=== PATIENT | female | born 1995 | race African-American/Black ===

== ENCOUNTER 2016-08-22 13:39 | Emergency (ER) | payer OTHER ==
[~2016-08-22] VITALS: Ht 172.7 cm; Wt 62.1 kg
[2016-08-22 13:51] VITALS: TEMP 36.7; Ht 172.7 cm; Wt 62.1 kg
[2016-08-22] MEDS ORDERED: SODIUM CHLORIDE 0.9% 1000ML 1,000 ML IV STA (14:10)
[2016-08-22] MEDS ORDERED: KETOROLAC TROMETHAMINE 30 MG/ML VIAL IV STA (14:10)
[2016-08-22] MEDS ORDERED: ONDANSETRON INJ 2 MG/ML 2 ML VIAL IV STA ×2 (14:10→18:27)
[2016-08-22] MEDS ORDERED: OPTIRAY 320 IV PRN (14:30)
[2016-08-22 14:41] LABS: BASO % 0.6 %; BASO ABS # 0.04 K/uL (0-0.2); HEMATOCRIT 37.2 % (37-47); LYMPH % 15.1 %; LYMPH ABS # 0.95 K/uL (1.2-3.4); MEAN CELL VOLUME 82.1 fL (80-100); MEAN CORPUSCULAR HEMOGLOBIN 26.9 pg (25-34); MEAN CORPUSCULAR HGB CONC 32.8 g/dl (32-36); MEAN PLATELET VOLUME 8.6 fL (7.4-10.4); MONO % 10.4 %; NEUT % 73.9 %; PLATELET COUNT 481 K/uL (130-400); RED BLOOD COUNT 4.53 M/uL (4.2-5.4); WHITE BLOOD COUNT 6.28 K/uL (4.8-10.8)
[2016-08-22 14:57] LABS: BUN/CREATININE RATIO 9.1 (10-20); CALCIUM 9.7 mg/dl (8.5-10.1); CREATININE 0.94 mg/dl (0.60-1.20); POTASSIUM 3.4 mmol/L (3.5-5.1)
[2016-08-22 15:00] LABS: ALB/GLOB RATIO 0.9 (0.9-2)
[2016-08-22 15:17] LABS: ANISOCYTOSIS PRESENT; COMPLETE YES
[2016-08-22 16:02] LABS: PREG INTERNAL NEGATIVE QC NEG CLEAR BACKGROUND; PREG INTERNAL POSITIVE QC POS CONTROL LINE
--- NOTE | 2016-08-22 17:18 | DIAGNOSTIC IMAGING REPORT ---
CT OF THE ABDOMEN AND PELVIS WITH CONTRAST CLINICAL HISTORY: Left upper quadrant pain and vomiting. COMPARISON STUDY: None. TECHNIQUE: Following IV administration of 116 mL of Optiray-320, axial images of the abdomen and pelvis were obtained from the lung bases to the proximal femurs. Images were reviewed in the axial, sagittal, and coronal planes. IV contrast was administered without complication. CT DOSE: 242.58 mGy.cm FINDINGS: Lung bases are clear. The liver, spleen, adrenal glands, kidneys and pancreas are unremarkable. There is excreted contrast within both collecting systems. There is no peripancreatic or pericholecystic infiltration. There is no biliary or pancreatic ductal dilatation. The caliber and wall thickness of small and large bowel are normal. The appendix is normal. The ovaries are not enlarged. There is no abscess or lymphadenopathy within the abdomen or pelvis. Skeletal structures are unremarkable. IMPRESSION: No acute process within the abdomen or pelvis. Electronically signed by: Matt Ireland M.D. 08/22/2016 5:17 PM Dictated Date/Time: 08/22/2016 5:12 PM
[2016-08-22 17:26] LABS: URINE APPEARANCE CLOUDY (CLEAR); URINE EPITHELIAL CELL AUTO >30 /lpf (0-5); URINE NITRITE POS (NEG); URINE PH 7.5 (4.5-7.5); URINE SPECIFIC GRAVITY 1.024 (1.000-1.030); UROBILINOGEN POS (NEG)
[2016-08-22 17:34] LABS: MANUAL MICROSCOPIC REQUIRED? NO; REVIEW REQ? YES; URINE BILIRUBIN 2+ (NEG); URINE COLOR AMBER
[2016-08-22 17:43] LABS: URINE MUCUS PRESENT (NONE PRSENT)
[2016-08-22 17:44] LABS: ZZUR CULT IF INDIC CLEAN CATCH YES
[2016-08-22] MEDS ORDERED: TRAM-453 PO (18:38)
[2016-08-22] MEDS ORDERED: NITR-5 PO (18:38)
[2016-08-22] MEDS ORDERED: ONDA4TAB10 SL (18:38)
[2016-08-22] MEDS ORDERED: PROMETHAZINE HCL INJ 12.5 MG in SODIUM CHLORIDE 0.9% 50ML 50 ML IV STA (18:40)
[2016-08-22] MEDS ORDERED: PROM12.57 PO (18:45)
--- NOTE | 2016-08-22 18:45 | EMERGENCY ROOM VISIT NOTE ---
History First contact with patient: 13:54 Chief Complaint: ABDOMINAL PAIN Stated Complaint: ABD. PAIN, VOMITING, NAUSEA Nursing Triage Summary: Patient c/o nausea, vomitting and abdominal pain for about 1 month. Patient has hx of pancreatitis. States pain 9/10 on arrival to ER. Patient states pain 4/10 at this time History of Present Illness The patient is a 21 year old female who presents to the Emergency Room with complaints of abdominal pain. The patient states that she has had left-sided abdominal pain for the past 2 days. She states she was seen at an emergency department in [place] last month and was told she had pancreatitis. She was prescribed medications but was unable to fill those before coming here. The patient states that she recently moved to the area and does not have a primary care provider or specialist here. She reports that the pain is in the left side of the abdomen and she has associated vomiting. She states that she has constant nausea. She rates her discomfort a 10/10. She states the pain and nausea are exacerbated by eating. She denies any chest pain, shortness of breath, urinary symptoms, changes in bowel movements, vaginal discharge/ bleeding or fevers. She denies any history of abdominal surgery. Review of Systems A complete 10-point Review of Systems was discussed with the patient, with pertinent positives and negatives listed in the History of Present Illness. All remaining Review of Systems questions can be considered negative unless otherwise specified. Social History Smoking Status: Former Smoker Current/Historical Medications Scheduled Nitrofurantoin Monohyd Macrocr (Macrobid), 100 MG PO BID Ondasetron Odt (Zofran Odt), 4 MG SL Q6H Tramadol Hcl (Ultram), 50 MG PO Q4H Scheduled PRN Promethazine (Phenergan ), 1-2 TABS PO Q6H PRN for Nausea or Vomiting Allergies Coded Allergies: No Known Allergies (Unverified , 08/22/16) Physical Exam Vital Signs Date Time Temp Pulse Resp B/P Pulse Ox O2 Delivery O2 Flow Rate FiO2 08/22/16 19:56 93 18 143/87 97 08/22/16 18:21 92 18 128/94 99 Room Air 08/22/16 15:45 96 18 130/92 98 Room Air 08/22/16 13:51 36.7 100 18 140/88 97 Room Air Pain Rating (0-10): 3.0 Physical Exam VITALS: Vitals are noted on the nurse's note and reviewed by myself. Vital signs stable. GENERAL: This is a 21-year-old female, in no acute distress, nondiaphoretic, well-developed well-nourished. SKIN: Capillary reflex less than 2 seconds. HEENT: Normocephalic. PERRLA. EOMI. Nares patent. Mucous membranes moist. Neck is supple without nuchal rigidity. HEART: Regular rate and rhythm without murmurs gallops or rubs. LUNGS: Clear to auscultation bilaterally without wheezes, rales or rhonchi. ABDOMEN: Positive bowel sounds x 4. Soft, nondistended. Mild tenderness to palpation of the left upper quadrant and left mid abdomen. No tenderness of the epigastric region or right upper quadrant. Negative Bender sign. No guarding or rebound tenderness. NEURO: Patient was alert and oriented to person place and time. Medical Decision & Procedures ER Provider Diagnostic Interpretation: CT OF THE ABDOMEN AND PELVIS WITH CONTRAST CLINICAL HISTORY: Left upper quadrant pain and vomiting. COMPARISON STUDY: None. TECHNIQUE: Following IV administration of 116 mL of Optiray-320, axial images of the abdomen and pelvis were obtained from the lung bases to the proximal femurs. Images were reviewed in the axial, sagittal, and coronal planes. IV contrast was administered without complication. CT DOSE: 242.58 mGy.cm FINDINGS: Lung bases are clear. The liver, spleen, adrenal glands, kidneys and pancreas are unremarkable. There is excreted contrast within both collecting systems. There is no peripancreatic or pericholecystic infiltration. There is no biliary or pancreatic ductal dilatation. The caliber and wall thickness of small and large bowel are normal. The appendix is normal. The ovaries are not enlarged. There is no abscess or lymphadenopathy within the abdomen or pelvis. Skeletal structures are unremarkable. IMPRESSION: No acute process within the abdomen or pelvis. Laboratory Results 08/22/16 14:25 Red Blood Count 4.53, Mean Corpuscular Volume 82.1, Mean Corpuscular Hemoglobin 26.9, Mean Corpuscular Hemoglobin Concent 32.8, Mean Platelet Volume 8.6, Neutrophils (%) (Auto) 73.9, Lymphocytes (%) (Auto) 15.1, Monocytes (%) (Auto) 10.4, Eosinophils (%) (Auto) 0.0, Basophils (%) (Auto) 0.6, Neutrophils # (Auto ) 4.64, Lymphocytes # (Auto) 0.95, Monocytes # (Auto) 0.65, Eosinophils # (Auto ) 0.00, Basophils # (Auto) 0.04 08/22/16 14:25 Test 08/22/16 14:25 08/22/16 16:54 White Blood Count 6.28 K/uL (4.8-10.8) Red Blood Count 4.53 M/uL (4.2-5.4) Hemoglobin 12.2 g/dL (12.0-16.0) Hematocrit 37.2 % (37-47) Mean Corpuscular Volume 82.1 fL (80-100) Mean Corpuscular Hemoglobin 26.9 pg (25-34) Mean Corpuscular Hemoglobin Concent 32.8 g/dl (32-36) Platelet Count 481 K/uL (130-400) Mean Platelet Volume 8.6 fL (7.4-10.4) Neutrophils (%) (Auto) 73.9 % Lymphocytes (%) (Auto) 15.1 % Monocytes (%) (Auto) 10.4 % Eosinophils (%) (Auto) 0.0 % Basophils (%) (Auto) 0.6 % Neutrophils # (Auto) 4.64 K/uL (1.4-6.5) Lymphocytes # (Auto) 0.95 K/uL (1.2-3.4) Monocytes # (Auto) 0.65 K/uL (0.11-0.59) Eosinophils # (Auto) 0.00 K/uL (0-0.5) Basophils # (Auto) 0.04 K/uL (0-0.2) RDW Standard Deviation 61.4 fL (36.4-46.3) RDW Coefficient of Variation 20.6 % (11.5-14.5) Immature Granulocyte % (Auto) 0.0 % Immature Granulocyte # (Auto) 0.00 K/uL (0.00-0.02) Anisocytosis PRESENT Macrocytosis PRESENT Anion Gap 12.0 mmol/L (3-11) Est Creatinine Clear Calc Drug Dose 91.3 ml/min Estimated GFR () 99.1 Estimated GFR (Non- 85.5 BUN/Creatinine Ratio 9.1 (10-20) Calcium Level 9.7 mg/dl (8.5-10.1) Total Bilirubin 2.1 mg/dl (0.2-1) Aspartate Amino Transf (AST/SGOT) 192 U/L (15-37) Alanine Aminotransferase (ALT/SGPT) 157 U/L (12-78) Alkaline Phosphatase 447 U/L (45-117) Total Protein 8.2 gm/dl (6.4-8.2) Albumin 3.9 gm/dl (3.4-5.0) Globulin 4.3 gm/dl (2.5-4.0) Albumin/Globulin Ratio 0.9 (0.9-2) Lipase 53 U/L (73-393) Human Chorionic Gonadotropin, Qual NEG (NEG) Urine Color RANDA Urine Appearance CLOUDY (CLEAR) Urine pH 7.5 (4.5-7.5) Urine Specific [place] 1.024 (1.000-1.030) Urine Protein NEG (NEG) Urine Glucose (UA) NEG (NEG) Urine Ketones 3+ (NEG) Urine Occult Blood NEG (NEG) Urine Nitrite POS (NEG) Urine Bilirubin 2+ (NEG) Urine Urobilinogen POS (NEG) Urine Leukocyte Esterase SMALL (NEG) Urine WBC (Auto) 5-10 /hpf (0-5) Urine RBC (Auto) 0-4 /hpf (0-4) Urine Hyaline Casts (Auto) 5-10 /lpf (0-5) Urine Epithelial Cells (Auto) >30 /lpf (0-5) Urine Bacteria (Auto) 1+ (NEG) Urine Mucus PRESENT (NONE PRSENT) Urine Test NEG (NEG) Date/Time Source Procedure Growth Status 08/22/16 16:54 Urine , Clean Catch Urine Culture - Final GREATER THAN THREE TYPES OF ORGANISMS... Complete Medications Administered Medications (Trade) Dose Ordered Sig/Luis Eduardo Route Start Time Stop Time Status Last Admin Dose Admin Sodium Chloride (Nss 1000ml) 1,000 ml @ 999 mls/hr Q1H1M STAT IV 08/22/16 14:10 08/22/16 15:10 DC 08/22/16 14:37 999 MLS/HR Ondansetron HCl (Zofran Inj) 4 mg NOW STAT IV 08/22/16 14:10 08/22/16 14:13 DC 08/22/16 14:37 4 MG Ketorolac Tromethamine 30 mg 30 mg NOW STAT IV 08/22/16 14:10 08/22/16 14:13 DC 08/22/16 14:37 30 MG Promethazine HCl/ Sodium Chloride (Phenergan Inj/ Nss 50ml) 50.5 ml @ 204 mls/hr NOW STAT IV 08/22/16 18:40 08/22/16 18:54 DC 08/22/16 19:06 204 MLS/HR Medical Decision Differential diagnosis includes pancreatitis, gastroenteritis, cholecystitis, colitis, bowel obstruction, appendicitis, ovarian cyst, ovarian torsion, among others. The patient was evaluated as above. Labs were drawn and IV access was obtained. Imaging studies were performed and read by radiology as above. The patient was medicated as above. The patient was reassessed multiple times during their stay in the emergency department and remained in stable condition. The patient is a 21-year-old female who presents today complaining of left- sided abdominal pain. I was able to review records from her visit in a [place] ER. At that time, the patient had a right upper quadrant ultrasound which showed gallbladder sludge, but no evidence of acute cholecystitis or acute pancreatitis. Her LFTs were elevated. Her lipase was 222 at that time. I do not feel that these findings are consistent with acute pancreatitis and I am unsure why that diagnosis was made. Labs revealed no leukocytosis or concerning anemia. Patient's LFTs are elevated and bilirubin is elevated at 2.1. These numbers are similar to when the patient was seen in [place]. Urinalysis was suggestive of infection versus contamination, but given the patient's pain I will cover her with an antibiotic. Urine was negative. Lipase was 53. CT scan of the abdomen and pelvis was performed and showed no acute findings within the abdomen. There is no evidence of acute pancreatitis at this time. Given the patient's elevated LFTs, I do feel that she needs further workup including possibly a HIDA scan to rule out gallbladder disease. In the meantime, she will be placed on Prilosec for possible gastritis/gastric ulcer. She was given prescriptions for pain medication and nausea medication. She was instructed to follow-up with a primary care provider and aircraft log clerk locally. Based on the patient's presentation, lab results, and imaging studies, I feel the patient is stable for outpatient treatment. The patient's case was reviewed with Dr. Stevens, ED attending physician, who agreed with my assessment and treatment plan. Discharge instructions were reviewed with the patient. The patient verbalized understanding of my assessment and treatment plan and was discharged home in good condition. [place] Drug Monitoring Program Search Results: patient reviewed within database, no issues identified Impression Primary Impression: Left sided abdominal pain Departure Information Dispostion Home / Self-Care Condition GOOD Prescriptions Promethazine (Phenergan ) 12.5 Mg Tab 1-2 TABS PO Q6H Y for Nausea or Vomiting, #10 TAB Prov: Alexia Pizarro PA-C 08/22/16 Tramadol Hcl (ULTRAM) 50 Mg Tab 50 MG PO Q4H for Pain for 3 Days, #12 TAB For Initial Treatment Prov: Alexia Pizarro PA-C 08/22/16 Ondasetron Odt (ZOFRAN ODT) 4 Mg Tab 4 MG SL Q6H for Nausea, #20 TAB Prov: Alexia Pizarro PA-C 08/22/16 Nitrofurantoin Monohyd Macrocr (Macrobid) 100 Mg Cap 100 MG PO BID for 5 Days, #10 CAP Prov: Alexia Pizarro PA-C 08/22/16 Referrals No Doctor, Assigned (PCP) Case, Elian Casey D.O. Patient Instructions [facility] Additional Instructions You have been treated in the Emergency Department your Abdominal Pain. Laboratory results and imaging studies have ruled out any emergent causes for your abdominal pain which would warrant admission or surgery. You have been prescribed tramadol to be used for pain control. This is a narcotic medication. You cannot drive or consume alcohol while on this medicine. This medicine should only be used for pain that cannot be controlled with tpli-pcj-cclwoaz pain medicines. You have been prescribed Zofran to be used for any nausea or vomiting. Take as prescribed. Prilosec: Take 20 mg daily before breakfast. This is an cwfs-[id number]-vmqgmuu medication that may help with stomach problems. You were prescribed Macrobid to be taken twice daily for a possible urinary infection. This is an antibiotic. All antibiotics have the potential to cause diarrhea. Stop this medication and contact a medical provider if you were to develop any significant adverse side effects including: wheezing, shortness of breath, passing out, vomiting, or a diffuse rash. Always take antibiotics as directed and COMPLETE the ENTIRE course regardless of the improvement of your symptoms. For pain control, you can use the following eotu-lvm-graocgl medicines (if >12 yo): - Regular strength (200 mg/tab) Advil (ibuprofen) 1-2 tabs every 4-6 hours as needed. Do not exceed a dose of 3200 mg per day. Drink plenty of water and stay well hydrated. Your liver function tests were high today. You need to follow-up with your primary care provider for further testing, possibly including testing of your gallbladder. You should also call a aircraft log clerk for further evaluation of your abdominal pain. Return to the emergency department if your symptoms persist despite treatment plan outlined above or if the following symptoms occur: increased fevers, chills , worsening nausea/vomiting, blood in your stool or urine.
[2016-08-22 19:56] VITALS: BP 143/87; PULSE 93; O2SAT 97
[2017-01-25] MEDS ORDERED: BNT20 PO (13:49)
== END 2016-08-22 19:58 | disposition home or self-care (01) ==
LOC: C.EDB 13:42 → C.EDC 19:58
DX: R10.12 Left upper quadrant pain (principal); R11.2 Nausea with vomiting, unspecified; Z87.891 Personal history of nicotine dependence

== ENCOUNTER 2016-09-08 20:18 | Emergency (ER) | payer OTHER ==
[~2016-09-08] VITALS: Ht 172.7 cm; Wt 64.7 kg
[~2016-09-08 20:18] MED LIST: ONDA4TAB10 SL; PROM12.57 PO
[2016-09-08 20:24] VITALS: Ht 172.7 cm; Wt 64.7 kg
[2016-09-08 20:34] VITALS: O2SAT 100
[2016-09-08 21:13] LABS: BUN/CREATININE RATIO 12.5 (10-20); CREATININE 0.71 mg/dl (0.60-1.20); POTASSIUM 3.4 mmol/L (3.5-5.1)
[2016-09-08 22:14] LABS: CALCIUM 9.4 mg/dl (8.5-10.1)
--- NOTE | 2016-09-09 02:44 | EMERGENCY ROOM VISIT NOTE ---
History Report prepared by Vita: Warner Patterson Under the Supervision of: Dr. Shaq Rodriguez D.O. First contact with patient: 20:43 Chief Complaint: ALCOHOL OVERDOSE Stated Complaint: ETOH Nursing Triage Summary: pt brought to ED by ALS services for alcohol overdose. pt was found asleep/passed out at the [facility] [place]. pt admits to drinking both liquor and beer, states "more than I should have." pt denies drug use. pt reports she is a [employer] student. PBT 0.307. pt alert and oriented x4. breathing WNL, regularly and independently. pt is calm and cooperative History of Present Illness The patient is a 21 year old female who presents to the Emergency Room with complaints of constant alcohol intoxication occurring prior to arrival. The patient states that she was passed out at [facility], and the environmental planner and EMS took her to the ED. The patient states that she had a lot to drink, and her last drink was a couple of hours ago. The patient denies any past medical history other than stomach ulcers. The patient denies any falls or trauma. Pt denies headache , change in vision, fevers, chest pain, shortness of breath, nausea, vomiting, diarrhea, pain with urination, and melena. Patient denies any drug use. Source of History: patient Onset: prior to arrival Position: other (global) Quality: other (alcohol intoxication) Timing: constant Review of Systems See HPI for pertinent positives & negatives. A total of 10 systems reviewed and were otherwise negative. Past Medical & Surgical Medical Problems: (1) Stomach ulcer Family History Hypertension Social History Smoking Status: Light Tobacco Smoker Marital Status: single Occupation Status: employed Current/Historical Medications Unable to Obtain Active Prescriptions or Reported Meds Allergies Coded Allergies: No Known Allergies (Unverified , 08/22/16) Physical Exam Vital Signs Date Time Temp Pulse Resp B/P Pulse Ox O2 Delivery O2 Flow Rate FiO2 09/09/16 03:01 102 18 107/73 99 Room Air 09/09/16 02:09 106 09/09/16 02:01 102 18 106/51 100 Room Air 09/09/16 01:01 97 18 104/47 100 Room Air 09/09/16 00:01 101 18 95 Room Air 09/08/16 23:01 105 18 101/58 94 Room Air 4/22/17 22:08 99 09/08/16 22:05 102 18 120/83 99 Room Air 09/08/16 20:34 100 Room Air 09/08/16 20:24 36.6 108 18 130/76 100 Room Air Physical Exam GENERAL: Sitting up in bed, smell of alcohol on the breath, visibly intoxicated , in no acute distress. HEAD: Normocephalic atraumatic EYE EXAM: normal conjunctiva, PERRL and EOM's grossly intact OROPHARYNX: no exudate, no erythema, lips, buccal mucosa, and tongue normal and mucous membranes are moist NECK: supple, no nuchal rigidity, no adenopathy, non-tender LUNGS: Clear to auscultation. Normal chest wall mechanics HEART: no murmurs, S1 normal and S2 normal ABDOMEN: abdomen soft, non-tender, normo-active bowel sounds, no masses, no rebound or guarding. BACK: Back is symmetrical on inspection and there is no deformity, no midline tenderness, no CVA tenderness. SKIN: no rashes and no bruising UPPER EXTREMITIES: upper extremities are grossly normal. LOWER EXTREMITIES: No pitting edema. NEURO EXAM: Alert to person place and time. Slurring her words. cranial nerves II-XII grossly intact, no gross weakness of arms, no gross weakness of legs. Gross sensation intact. Medical Decision & Procedures Laboratory Results 09/08/16 20:39 Test 09/08/16 20:39 Anion Gap 8.0 mmol/L (3-11) Est Creatinine Clear Calc Drug Dose 124.3 ml/min Estimated GFR () 139.1 Estimated GFR (Non- 120.1 BUN/Creatinine Ratio 12.5 (10-20) Calcium Level 9.4 mg/dl (8.5-10.1) Ethyl Alcohol mg/dL 333.0 mg/dl (0-3) Laboratory results per my review. ED Course ED COURSE: Vital signs were reviewed and showed tachycardia The patients medical record was reviewed The above diagnostic studies were performed and reviewed. ED treatments and interventions as stated above. 2042: The patient was evaluated in room B12. A complete history and physical examination was performed. 2204: I reassessed the patient, and she was doing well, and she states that she has no sober friends for a ride. 4: I reassessed the patient, and she is resting comfortably and awakens to voice. She has no new complaints. 0330: The patient was signed out to Dr. Rothman at the change of shift. The patient remained stable while under my care. Medical Decision Differential diagnosis includes etiologies such as alcohol intoxication, toxicologic, infection, hypoglycemia, electrolyte abnormalities, cardiac sources , intracerebral event, neurologic, as well as others were entertained. Patient is a 21-year-old female who presents the ER following being found sleeping at sheets by police. She's brought in by EMS. She has no complaints. She is able to communicate and discussed the nights signs. She does mid drinking. No other drugs. No significant past medical history. Labs show a mild hypokalemia likely secondary to the alcohol intoxication. Alcohol was 330. She was reevaluated on several occasions and was resting comfortably and had no new complaints. Alcohol will be less than 100 at or after 9AM. If she has a sober ride before then and is able to ambulate it would be reasonable to discharge her. Otherwise she'll be here until 9 AM at which time she has no new complaints she can be discharged. Patient was signed out to Dr. Rothman. Impression Primary Impression: Alcohol abuse Additional Impression: Alcohol use with intoxication Scribe Attestation The scribe's documentation has been prepared under my direction and personally reviewed by me in its entirety. I confirm that the note above accurately reflects all work, treatment, procedures, and medical decision making performed by me. Departure Information Dispostion Still a Patient Prescriptions Unable to Obtain Active Prescriptions or Reported Meds Referrals No Doctor, Assigned (PCP) Patient Instructions [facility] Problem Qualifiers
[2016-09-09 07:20] VITALS: BP 101/53; PULSE 89; TEMP 36.6; O2SAT 97
--- NOTE | 2016-09-09 07:27 | EMERGENCY ROOM VISIT NOTE ---
ED Visit Note First contact with patient: 04:05 This case was signed out to me at change of shift awaiting sobriety. At the time of signout, the patient was sound asleep and hemodynamically stable. I have checked on her again at this time and she remains asleep and is hemodynamically stable. We will wait for her to sober up and then discharge her home. 0720: The patient is feeling much better at this time and will be discharged home with friends.
[2017-01-25] MEDS ORDERED: BNT20 PO (13:49)
== END 2016-09-09 07:20 | disposition home or self-care (01) ==
LOC: EDBD 20:18 → C.EDB 20:19
DX: F10.129 Alcohol abuse with intoxication, unspecified (principal); Z87.19 Personal history of other diseases of the digestive system; Z82.49 Family history of ischemic heart disease and other diseases of the circulatory system; F17.200 Nicotine dependence, unspecified, uncomplicated

== ENCOUNTER 2016-11-28 20:51 | Emergency (ER) | payer OTHER ==
[~2016-11-28] VITALS: Ht 172.7 cm; Wt 61.6 kg
[2016-11-28 20:59] VITALS: TEMP 36.7; Ht 172.7 cm; Wt 61.6 kg
[2016-11-28] MEDS ORDERED: FLUO10CA48 PO (21:19)
[2016-11-28] MEDS ORDERED: HYDR25CA PO (21:22)
[2016-11-28] MEDS ORDERED: FOLI1TAB7 PO (21:23)
[2016-11-28] MEDS ORDERED: MULT-506 PO (21:24)
[2016-11-28] MEDS ORDERED: ONDANSETRON INJ 2 MG/ML 2 ML VIAL IV STA ×2 (21:25→23:08)
[2016-11-28] MEDS ORDERED: RANITIDINE HCL 50 MG/100 ML D5W IV STA (21:39)
[2016-11-28] MEDS ORDERED: SODIUM CHLORIDE 0.9% 1000ML 1,000 ML IV STA ×2 (21:39)
[2016-11-28] MEDS ORDERED: LIDOCAINE HCL 2% VISC SOLN 20 ML UDC PO STA (21:39)
[2016-11-28] MEDS ORDERED: ALUMINUM/MAGNESIUM SUSP 30 ML UDC PO STA (21:39)
[2016-11-28 21:46] LABS: BASO % 0.1 %; BASO ABS # 0.01 K/uL (0-0.2); COMPLETE YES; IG% 0.2 %; LYMPH % 8.6 %; LYMPH ABS # 0.71 K/uL (1.2-3.4); MEAN CELL VOLUME 79.8 fL (80-100); MEAN CORPUSCULAR HEMOGLOBIN 25.9 pg (25-34); MEAN CORPUSCULAR HGB CONC 32.5 g/dl (32-36); MEAN PLATELET VOLUME 10.1 fL (7.4-10.4); MONO % 3.6 %; NEUT % 87.5 %; PLATELET COUNT 295 K/uL (130-400); RED BLOOD COUNT 4.51 M/uL (4.2-5.4); WHITE BLOOD COUNT 8.28 K/uL (4.8-10.8)
[2016-11-28 21:54] LABS: PREG INTERNAL NEGATIVE QC NEG CLEAR BACKGROUND; PREG INTERNAL POSITIVE QC POS CONTROL LINE
[2016-11-28 21:58] LABS: URINE APPEARANCE CLEAR (CLEAR); URINE BILIRUBIN NEG (NEG); URINE COLOR DK YELLOW; URINE EPITHELIAL CELL AUTO >30 /lpf (0-5); URINE NITRITE NEG (NEG); URINE PH 8.5 (4.5-7.5); URINE SPECIFIC GRAVITY 1.028 (1.000-1.030); UROBILINOGEN NEG (NEG); ZZUR CULT IF INDIC CLEAN CATCH NO
[2016-11-28 21:59] LABS: BUN/CREATININE RATIO 12.5 (10-20); CALCIUM 9.7 mg/dl (8.5-10.1); CREATININE 0.8 mg/dl (0.60-1.20); POTASSIUM 3.8 mmol/L (3.5-5.1)
[2016-11-28 22:02] LABS: ALB/GLOB RATIO 0.8 (0.9-2)
[2016-11-28 22:03] LABS: MANUAL MICROSCOPIC REQUIRED? NO; REVIEW REQ? NO
[2016-11-28] MEDS ORDERED: MoRPHine SULFATE 4 MG/ML 1 ML CARP\\VIAL IV STA (22:43)
[2016-11-28 23:20] LABS: PARTIAL THROMBOPLASTIN RATIO 0.9; PROTHROMBIN TIME (PATIENT) 10.7 SECONDS (9.0-12.0)
[2016-11-29] MEDS ORDERED: METOCLOPRAMIDE HCL 10 MG TAB PO SCH
[2016-11-29] MEDS ORDERED: MoRPHine SULFATE 4 MG/ML 1 ML CARP\\VIAL IV STA (00:53)
[2016-11-29] MEDS ORDERED: METOCLOPRAMIDE HCL INJ 5 MG/ML 2 ML VIAL IV STA (00:53)
[2016-11-29] MEDS ORDERED: DiphenhydrAMINE HCL 50 MG/ML VIAL IV STA (00:53)
[2016-11-29] MEDS ORDERED: PANT40TA PO (02:00)
[2016-11-29] MEDS ORDERED: METOCLOPRAMIDE HCL 10 MG TAB PO STA (02:01)
[2016-11-29] MEDS ORDERED: PANTOprazole SOD 40 MG TAB PO STA (02:01)
--- NOTE | 2016-11-29 02:08 | EMERGENCY ROOM VISIT NOTE ---
History First contact with patient: 21:32 Chief Complaint: GI ASSESSMENT Stated Complaint: VOMITING,SEVERE ABD PAIN Nursing Triage Summary: Acute onset of abdominal pain and nausea/vomiting last night, continuing today. History of Present Illness The patient is a 21 year old female who presents to the Emergency Room with complaints of intermittent epigastric discomfort with nausea and vomiting who has had chronically elevated LFTs for quite some time with no further workup for this. Patient states she quit drinking alcohol this past month. No IV drug abuse in the past. Negative hepatitis panel in the past. Pain currently 9 out of 10. Nothing makes it better or worse. No blood or black in the vomit. No black stool. Patient denies chest pain, dyspnea, fever, chills, back pain, urinary symptoms. No endoscopy in the past. No GI evaluation for the elevated LFTs. Review of Systems See HPI for pertinent positives & negatives. A total of 10 systems reviewed and were otherwise negative. Past Medical/Surgical History Medical Problems: (1) Stomach ulcer Family History Hypertension Social History Smoking Status: Never Smoker Alcohol Use: occasionally Drug Use: none Marital Status: single Occupation Status: employed Current/Historical Medications Scheduled Fluoxetine (Prozac), 10 MG PO DAILY Folic Acid (Folvite), 1 MG PO DAILY Multivitamin (Multivitamin), 1 TAB PO DAILY Pantoprazole (Protonix), 40 MG PO DAILY Scheduled PRN Hydroxyzine Pamoate (Vistaril), 1 CAP PO Q6H PRN for Anxiety Allergies Coded Allergies: No Known Allergies (Unverified , 11/28/16) Physical Exam Vital Signs Date Time Temp Pulse Resp B/P (MAP) Pulse Ox O2 Delivery O2 Flow Rate FiO2 11/29/16 02:21 105 108/66 100 11/29/16 01:09 102 16 136/92 100 11/29/16 00:30 90 135/92 98 11/29/16 00:13 101 22 123/83 100 Room Air 11/28/16 22:30 87 20 116/75 100 11/28/16 20:59 36.7 105 18 119/77 99 Room Air Physical Exam VITALS: Vitals are noted on the nurse's note and reviewed by myself. Vital signs stable. GENERAL: Pleasant female, in no acute distress, nondiaphoretic, well-developed well-nourished. SKIN: The skin was without rashes, erythema, edema, or bruising. There is no tenting of the skin. Capillary reflex less than 2 seconds. HEAD: Normocephalic atraumatic. EARS: External auditory canals clear, tympanic membranes pearly gillespie without erythema or effusion bilaterally. EYES: Pupils equal round and reactive to light and accommodation. Conjunctivae without injection, sclerae without icterus. Extraocular movements intact. NOSE: Patent, turbinates without inflammation or discharge. MOUTH: Mucous membranes moist. . Pharynx without erythema or exudate. Uvula midline. Airway patent. Tongue does not deviate. NECK: Supple without nuchal rigidity. No lymphadenopathy. No thyromegaly. Cervical spine is nontender. No JVD. HEART: Regular rate and rhythm without murmurs gallops or rubs. LUNGS: Clear to auscultation bilaterally without wheezes, rales or rhonchi. No dullness to percussion. No retractions or accessory muscle use. ABDOMEN: Positive bowel sounds x 4. Normal tympanic percussion. Soft, tender to palpation epigastric region, no CVA tenderness, without masses or organomegaly. Bender sign negative. No guarding or rebound tenderness. MUSCULOSKELETAL: No muscle atrophy, erythema, or edema noted. NEURO: Patient was alert and oriented to person place and time. Normal sensation to light and sharp touch. No focal neurological deficits. Medical Decision & Procedures Laboratory Results 11/28/16 21:20 Red Blood Count 4.51, Mean Corpuscular Volume 79.8, Mean Corpuscular Hemoglobin 25.9, Mean Corpuscular Hemoglobin Concent 32.5, Mean Platelet Volume 10.1, Neutrophils (%) (Auto) 87.5, Lymphocytes (%) (Auto) 8.6, Monocytes (%) (Auto) 3.6, Eosinophils (%) (Auto) 0.0, Basophils (%) (Auto) 0.1, Neutrophils # (Auto) 7.24, Lymphocytes # (Auto) 0.71, Monocytes # (Auto) 0.30, Eosinophils # (Auto) 0.00, Basophils # (Auto) 0.01 11/28/16 21:20 Test 11/28/16 21:20 11/28/16 21:30 11/28/16 21:40 11/28/16 23:15 White Blood Count 8.28 K/uL (4.8-10.8) Red Blood Count 4.51 M/uL (4.2-5.4) Hemoglobin 11.7 g/dL (12.0-16.0) Hematocrit 36.0 % (37-47) Mean Corpuscular Volume 79.8 fL (80-100) Mean Corpuscular Hemoglobin 25.9 pg (25-34) Mean Corpuscular Hemoglobin Concent 32.5 g/dl (32-36) Platelet Count 295 K/uL (130-400) Mean Platelet Volume 10.1 fL (7.4-10.4) Neutrophils (%) (Auto) 87.5 % Lymphocytes (%) (Auto) 8.6 % Monocytes (%) (Auto) 3.6 % Eosinophils (%) (Auto) 0.0 % Basophils (%) (Auto) 0.1 % Neutrophils # (Auto) 7.24 K/uL (1.4-6.5) Lymphocytes # (Auto) 0.71 K/uL (1.2-3.4) Monocytes # (Auto) 0.30 K/uL (0.11-0.59) Eosinophils # (Auto) 0.00 K/uL (0-0.5) Basophils # (Auto) 0.01 K/uL (0-0.2) RDW Standard Deviation 48.8 fL (36.4-46.3) RDW Coefficient of Variation 16.7 % (11.5-14.5) Immature Granulocyte % (Auto) 0.2 % Immature Granulocyte # (Auto) 0.02 K/uL (0.00-0.02) Prothrombin Time 10.7 SECONDS (9.0-12.0) Prothromb Time International Ratio 1.0 (0.9-1.1) Activated Partial Thromboplast Time 23.9 SECONDS (21.0-31.0) Partial Thromboplastin Ratio 0.9 Anion Gap 11.0 mmol/L (3-11) Est Creatinine Clear Calc Drug Dose 106.4 ml/min Estimated GFR () 120.4 Estimated GFR (Non- 103.9 BUN/Creatinine Ratio 12.5 (10-20) Calcium Level 9.7 mg/dl (8.5-10.1) Total Bilirubin 0.8 mg/dl (0.2-1) Aspartate Amino Transf (AST/SGOT) 193 U/L (15-37) Alanine Aminotransferase (ALT/SGPT) 273 U/L (12-78) Alkaline Phosphatase 526 U/L (45-117) Total Protein 7.8 gm/dl (6.4-8.2) Albumin 3.5 gm/dl (3.4-5.0) Globulin 4.3 gm/dl (2.5-4.0) Albumin/Globulin Ratio 0.8 (0.9-2) Lipase 49 U/L (73-393) Human Chorionic Gonadotropin, Qual NEG (NEG) Urine Color DK YELLOW Urine Appearance CLEAR (CLEAR) Urine pH 8.5 (4.5-7.5) Urine Specific [place] 1.028 (1.000-1.030) Urine Protein TRACE (NEG) Urine Glucose (UA) NEG (NEG) Urine Ketones 2+ (NEG) Urine Occult Blood TRACE (NEG) Urine Nitrite NEG (NEG) Urine Bilirubin NEG (NEG) Urine Urobilinogen NEG (NEG) Urine Leukocyte Esterase TRACE (NEG) Urine WBC (Auto) 1-5 /hpf (0-5) Urine RBC (Auto) 0-4 /hpf (0-4) Urine Hyaline Casts (Auto) 5-10 /lpf (0-5) Urine Epithelial Cells (Auto) >30 /lpf (0-5) Urine Bacteria (Auto) NEG (NEG) Hepatitis B Surface Antigen NEG (NEG) Hepatitis C Antibody NEG (NEG) Medications Administered Medications (Trade) Dose Ordered Sig/Luis Eduardo Route Start Time Stop Time Status Last Admin Dose Admin Ondansetron HCl (Zofran Inj) 4 mg NOW STAT IV 11/28/16 21:25 11/28/16 21:28 DC 11/28/16 21:45 4 MG Lidocaine HCl (Viscous Lidocaine 2% Soln) 10 ml NOW STAT PO 11/28/16 21:39 11/28/16 21:41 DC 11/28/16 22:01 10 ML Al Hydroxide/Mg Hydroxide (Maalox Susp) 30 ml NOW STAT PO 11/28/16 21:39 11/28/16 21:41 DC 11/28/16 22:01 30 ML Ranitidine HCl (zANTac IV) 50 mg NOW STAT IV 11/28/16 21:39 11/28/16 21:41 DC 11/28/16 21:57 50 MG Sodium Chloride 1,000 ml @ 999 mls/hr Q1H1M STAT IV 11/28/16 21:39 11/28/16 22:39 DC 11/28/16 21:46 999 MLS/HR Sodium Chloride 1,000 ml @ 125 mls/hr Q8H STAT IV 11/28/16 21:39 11/29/16 03:07 DC 11/28/16 21:46 125 MLS/HR Morphine Sulfate (MoRPHine SULFATE INJ) 4 mg NOW STAT IV 11/28/16 22:43 11/28/16 22:44 DC 11/28/16 23:15 4 MG Ondansetron HCl (Zofran Inj) 4 mg NOW STAT IV 11/28/16 23:08 11/28/16 23:09 DC 11/28/16 23:12 4 MG Metoclopramide HCl (Reglan Inj) 10 mg NOW STAT IV 11/29/16 00:53 11/29/16 00:54 DC 11/29/16 01:05 10 MG Diphenhydramine HCl (Benadryl Inj) 12.5 mg NOW STAT IV 11/29/16 00:53 11/29/16 00:54 DC 11/29/16 01:03 12.5 MG Morphine Sulfate (MoRPHine SULFATE INJ) 4 mg NOW STAT IV 11/29/16 00:53 11/29/16 00:54 DC 11/29/16 01:07 4 MG Pantoprazole Sodium (Protonix Tab) 40 mg NOW STAT PO 11/29/16 02:01 11/29/16 02:03 DC 11/29/16 02:23 40 MG Metoclopramide HCl (Reglan Tab) 40 mg NOW STAT PO 11/29/16 02:01 11/29/16 02:03 DC 11/29/16 02:24 40 MG Oxycodone HCl (Roxicodone Immediate Rel 5MG Home Pack) 1 homepack UD ONCE PO 11/29/16 02:15 11/29/16 02:16 DC 11/29/16 02:25 1 HOMEPACK ED Course Prior records/ancillary studies reviewed. Triage Nursing notes reviewed. Additional history obtained from family. The patient's history was concerning for abdominal pain. Differential diagnosis: Etiologies such as appendicitis, diverticulitis, PUD, biliary pathology, UTI, pancreatitis, obstruction, mesenteric ischemia, aortic pathology, infections, inflammatory bowel disease, renal colic, as well as others were entertained. Physical examination findings: As above. ER treatment provided: GI cocktail, Zantac, morphine, Zofran, Reglan, Protonix On reassessment the patient felt better. Diagnostics interpreted by me: The labs revealed anemia. Elevated LFTs stable by chart review Imaging studies: Ultrasound negative for cholecystitis per radiology Exam and history seem consistent with nausea and vomiting and epigastric discomfort that most likely is related to reflux with chronically elevated LFTs. Patient felt better after being medicated as above. She was offered admission and declined. She was to follow up outpatient with GI. I felt this was reasonable. Negative hepatitis panel. Normal coags. Case management was asked to make sure patient follows up with GI. She is advised to return to the ER immediately for abdominal pain, fevers, vomiting, black or blood in her stool , worsening signs or symptoms or as needed.By the evaluation outlined above emergent etiologies such as appendicitis, diverticulitis, biliary pathology, UTI, pancreatitis, obstruction, mesenteric ischemia, aortic pathology, infections, inflammatory bowel disease, renal colic, as well as others were deemed relatively unlikely. The nurse accidentally gave the home pack of Reglan all at once to the patient. I did consult the pharmacist, Magaly, and states this is not a lethal dose. The patient only had 40 mg of Reglan. I did inform the family of this and I did apologize. The nurse did an accident report. Patient had no medical complaints and states she felt fine. She is advised not to take anymore Reglan until tomorrow. She is advised to return to the ER immediately for chest pain, difficulty breathing, vomiting, worsening signs or symptoms or as needed. The pt informed about the findings as listed above. All questions were answered and pleased with the treatment. Return instructions were outlined and the patient was discharged in stable condition. Outpatient prescription management: Protonix Referral: The patient was referred back to their primary care physician and gastroenterology for follow-up in 2 to 3 days for a recheck of the current condition. Case reviewed with my attending Medical Decision As above Impression Primary Impression: Epigastric discomfort Additional Impressions: Elevated LFTs Anemia Departure Information Dispostion Home / Self-Care Condition GOOD Prescriptions Pantoprazole (Protonix) 40 Mg Tab 40 MG PO DAILY for 14 Days, #14 TAB Prov: Ann Diana ., KARLA 11/29/16 Referrals Jarett Heck M.D. Forms HOME CARE DOCUMENTATION FORM, IMPORTANT VISIT INFORMATION Patient Instructions GERD, My [facility] Additional Instructions DO NOT drive, drink alcohol, operate machinery, or perform dangerous activities today. You were given medications in the ER that can affect your ability to safely function or operate a vehicle. Reglan(metoclopramide) tablets 10mg: Take one every six hours as needed for nausea. Avoid alcohol, operating machinery or dangerous equipment, working on ladders or roofs, DRIVING, or situations where being under the influence may be dangerous. Rest and drink plenty of fluids as tolerated. Slow sips of water or sports drinks are recommended instead of large amounts all at once. Once your stomach is settled start with a clear liquid diet (jello, soup broth, etc.) and then advance as tolerated. You should avoid full, heavy meals for about 24 hrs from the time your symptoms resolved. Protonix 40 m tablet daily for next 2 weeks. Take this on an empty stomach. Try Maalox or Zantac for breakthrough symptoms for reflux. Avoid large meals. Avoid acidic foods. Continue current medications. Avoid strenuous activities and anything that worsens your pain. Resume normal activities once your symptoms resolve. You are slightly anemic. Have your iron level checked by your family care doctor. Return to the ER immediately for worsening or persistent chest pain, abdominal pain, black or blood in your stools, vomiting, fevers, chest pains, difficulty breathing, worsening of your condition, or as needed. Follow up with your primary physician and gastroenterology in 2-3 days for a recheck of your current condition. Problem Qualifiers
[2016-11-29] MEDS ORDERED: OXYCODONE IR HOME PACK PO ONE (02:15)
[2016-11-29 02:21] VITALS: BP 108/66; PULSE 105; O2SAT 100
--- NOTE | 2016-11-29 06:44 | DIAGNOSTIC IMAGING REPORT ---
Biliary ultrasound CLINICAL HISTORY: epigastric pain, elevated LFTs COMPARISON STUDY: CT scan dated 08/22/2016 FINDINGS: The pancreas appears normal as visualized. The liver appears sonographically normal. There is no ductal dilatation. The common buttock measures 3 mm. The gallbladder appears normal. There is no right-sided hydronephrosis. IMPRESSION: Normal biliary ultrasound. Electronically signed by: Brien Chambers M.D. 11/29/2016 6:43 AM Dictated Date/Time: 11/29/2016 6:42 AM
[2017-01-25] MEDS ORDERED: BNT20 PO (13:49)
== END 2016-11-29 02:49 | disposition home or self-care (01) ==
LOC: C.EDB 20:52 → C.EDC 11-29 02:49
DX: R10.13 Epigastric pain (principal); R94.5 Abnormal results of liver function studies; D64.9 Anemia, unspecified; K25.9 Gastric ulcer, unspecified as acute or chronic, without hemorrhage or perforation; Z82.49 Family history of ischemic heart disease and other diseases of the circulatory system

== ENCOUNTER 2016-12-14 02:55 | Emergency (ER) | payer OTHER ==
[~2016-12-14] VITALS: Ht 172.7 cm; Wt 62.0 kg
[~2016-12-14 02:55] MED LIST changes: +FLUO10CA48 PO; +FOLI1TAB7 PO; +HYDR25CA PO; +MULT-506 PO; -ONDA4TAB10 SL; +PANT40TA PO; -PROM12.57 PO
[2016-12-14 03:03] VITALS: TEMP 36.7; Ht 172.7 cm; Wt 62.0 kg
[2016-12-14] MEDS ORDERED: SODIUM CHLORIDE 0.9% 1000ML 1,000 ML IV STA ×2 (03:10)
[2016-12-14] MEDS ORDERED: LIDOCAINE HCL 2% VISC SOLN 20 ML UDC PO STA (03:10)
[2016-12-14] MEDS ORDERED: ONDANSETRON INJ 2 MG/ML 2 ML VIAL IV STA (03:10)
[2016-12-14] MEDS ORDERED: ALUMINUM/MAGNESIUM SUSP 30 ML UDC PO STA (03:10)
[2016-12-14] MEDS ORDERED: [UNRECOGNIZED DRUG - CODE] PO (03:29)
[2016-12-14] MEDS ORDERED: MULT-506 PO (03:31)
[2016-12-14 03:45] LABS: BASO % 0.2 %; BASO ABS # 0.02 K/uL (0-0.2); COMPLETE YES; EOS % 0.2 %; HEMATOCRIT 33.8 % (37-47); IG% 0.2 %; LYMPH % 23.2 %; LYMPH ABS # 2.08 K/uL (1.2-3.4); MEAN CELL VOLUME 77.3 fL (80-100); MEAN CORPUSCULAR HEMOGLOBIN 25.9 pg (25-34); MEAN CORPUSCULAR HGB CONC 33.4 g/dl (32-36); MEAN PLATELET VOLUME 8.3 fL (7.4-10.4); MONO % 6.9 %; NEUT % 69.3 %; PLATELET COUNT 390 K/uL (130-400); RED BLOOD COUNT 4.37 M/uL (4.2-5.4); WHITE BLOOD COUNT 8.95 K/uL (4.8-10.8)
[2016-12-14 03:54] VITALS: O2SAT 97
[2016-12-14 04:02] LABS: INR 1.1 (0.9-1.1); PROTHROMBIN TIME (PATIENT) 11.5 SECONDS (9.0-12.0)
[2016-12-14 04:05] LABS: CALCIUM 9.5 mg/dl (8.5-10.1); CREATININE 0.72 mg/dl (0.60-1.20); POTASSIUM 3.6 mmol/L (3.5-5.1)
[2016-12-14 04:18] LABS: PREG INTERNAL NEGATIVE QC NEG CLEAR BACKGROUND; PREG INTERNAL POSITIVE QC POS CONTROL LINE
[2016-12-14] MEDS ORDERED: METOCLOPRAMIDE HCL INJ 5 MG/ML 2 ML VIAL IV STA (04:50)
[2016-12-14] MEDS ORDERED: PANTOprazole SOD 40 MG TAB PO STA (04:50)
[2016-12-14] MEDS ORDERED: DiphenhydrAMINE HCL 50 MG/ML VIAL IV STA (04:50)
[2016-12-14] MEDS ORDERED: SUCRALFATE 1 GM/10 ML UDC PO STA (05:37)
--- NOTE | 2016-12-14 06:18 | EMERGENCY ROOM VISIT NOTE ---
History First contact with patient: 03:07 Chief Complaint: NAUSEA Stated Complaint: NAUSEA History of Present Illness The patient is a 21 year old female who presents to the Emergency Room with complaints of nausea and epigastric discomfort for the past day has been binge drinking this week. Patient states she's been on for 1-2 cases of beer a day. No drug use. No history of withdrawal seizures. Patient did not take the Protonix as prescribed from last visit and did not see the GI doctor as recommended from last visit from a few weeks ago. Patient discussed the pain as discomfort, 5 out of 10 to the epigastric region. Nothing makes it better or worse. Patient denies vomiting, diarrhea, black or blood in the stool, chest pain, dyspnea, drug use. She is tolerate by mouth fluids and food. Review of Systems See HPI for pertinent positives & negatives. A total of 10 systems reviewed and were otherwise negative. Past Medical/Surgical History Medical Problems: (1) Stomach ulcer Family History Hypertension Social History Smoking Status: Current Every Day Smoker Alcohol Use: occasionally Drug Use: none Marital Status: single Occupation Status: employed Current/Historical Medications Scheduled Fluoxetine (Prozac), 10 MG PO DAILY Multivitamin (Multivitamin), 1 TAB PO DAILY Scheduled PRN Hydroxyzine Pamoate (Vistaril), 1 CAP PO Q6H PRN for Anxiety Physical Exam Vital Signs Date Time Temp Pulse Resp B/P (MAP) Pulse Ox O2 Delivery O2 Flow Rate FiO2 12/14/16 04:57 98 18 129/83 98 Room Air 12/14/16 03:54 97 Room Air 12/14/16 03:03 36.7 116 18 143/92 100 Room Air Physical Exam VITALS: Vitals are noted on the nurse's note and reviewed by myself. Vital signs stable. GENERAL: Pleasant female with EtOH odor, in no acute distress, nondiaphoretic, well-developed well-nourished. SKIN: The skin was without rashes, erythema, edema, or bruising. There is no tenting of the skin. Capillary reflex less than 2 seconds. HEAD: Normocephalic atraumatic. EARS: External auditory canals clear, tympanic membranes pearly gillespie without erythema or effusion bilaterally. EYES: Pupils equal round and reactive to light and accommodation. Conjunctivae with injection, sclerae without icterus. Extraocular movements intact. NOSE: Patent, turbinates without inflammation or discharge. MOUTH: Mucous membranes moist. Pharynx without erythema or exudate. Uvula midline. Airway patent. Tongue does not deviate. NECK: Supple without nuchal rigidity. No lymphadenopathy. No thyromegaly. Cervical spine is nontender. No JVD. HEART: Regular rate and rhythm without murmurs gallops or rubs. LUNGS: Clear to auscultation bilaterally without wheezes, rales or rhonchi. No dullness to percussion. No retractions or accessory muscle use. ABDOMEN: Positive bowel sounds x 4. Normal tympanic percussion. Soft, minimally tender to palpation epigastric region, no CVA tenderness, without masses or organomegaly. Bender sign negative. No guarding or rebound tenderness. MUSCULOSKELETAL: No muscle atrophy, erythema, or edema noted. NEURO: Patient was alert and oriented to person place and time. Normal sensation to light and sharp touch. No focal neurological deficits. Medical Decision & Procedures Laboratory Results 12/14/16 03:36 Red Blood Count 4.37, Mean Corpuscular Volume 77.3, Mean Corpuscular Hemoglobin 25.9, Mean Corpuscular Hemoglobin Concent 33.4, Mean Platelet Volume 8.3, Neutrophils (%) (Auto) 69.3, Lymphocytes (%) (Auto) 23.2, Monocytes (%) (Auto) 6.9, Eosinophils (%) (Auto) 0.2, Basophils (%) (Auto) 0.2, Neutrophils # (Auto) 6.19, Lymphocytes # (Auto) 2.08, Monocytes # (Auto) 0.62, Eosinophils # (Auto) 0.02, Basophils # (Auto) 0.02 12/14/16 03:36 Test 12/14/16 03:36 12/14/16 04:05 White Blood Count 8.95 K/uL (4.8-10.8) Red Blood Count 4.37 M/uL (4.2-5.4) Hemoglobin 11.3 g/dL (12.0-16.0) Hematocrit 33.8 % (37-47) Mean Corpuscular Volume 77.3 fL (80-100) Mean Corpuscular Hemoglobin 25.9 pg (25-34) Mean Corpuscular Hemoglobin Concent 33.4 g/dl (32-36) Platelet Count 390 K/uL (130-400) Mean Platelet Volume 8.3 fL (7.4-10.4) Neutrophils (%) (Auto) 69.3 % Lymphocytes (%) (Auto) 23.2 % Monocytes (%) (Auto) 6.9 % Eosinophils (%) (Auto) 0.2 % Basophils (%) (Auto) 0.2 % Neutrophils # (Auto) 6.19 K/uL (1.4-6.5) Lymphocytes # (Auto) 2.08 K/uL (1.2-3.4) Monocytes # (Auto) 0.62 K/uL (0.11-0.59) Eosinophils # (Auto) 0.02 K/uL (0-0.5) Basophils # (Auto) 0.02 K/uL (0-0.2) RDW Standard Deviation 47.6 fL (36.4-46.3) RDW Coefficient of Variation 16.8 % (11.5-14.5) Immature Granulocyte % (Auto) 0.2 % Immature Granulocyte # (Auto) 0.02 K/uL (0.00-0.02) Prothrombin Time 11.5 SECONDS (9.0-12.0) Prothromb Time International Ratio 1.1 (0.9-1.1) Activated Partial Thromboplast Time 26.3 SECONDS (21.0-31.0) Partial Thromboplastin Ratio 1.0 Anion Gap 8.0 mmol/L (3-11) Est Creatinine Clear Calc Drug Dose 118.9 ml/min Estimated GFR () 136.8 Estimated GFR (Non- 118.0 BUN/Creatinine Ratio 6.0 (10-20) Calcium Level 9.5 mg/dl (8.5-10.1) Total Bilirubin 1.0 mg/dl (0.2-1) Direct Bilirubin 0.5 mg/dl (0-0.2) Aspartate Amino Transf (AST/SGOT) 73 U/L (15-37) Alanine Aminotransferase (ALT/SGPT) 95 U/L (12-78) Alkaline Phosphatase 711 U/L (45-117) Total Protein 7.6 gm/dl (6.4-8.2) Albumin 3.3 gm/dl (3.4-5.0) Lipase 56 U/L (73-393) Human Chorionic Gonadotropin, Qual NEG (NEG) Ethyl Alcohol mg/dL 16.0 mg/dl (0-3) Medications Administered Medications (Trade) Dose Ordered Sig/Luis Eduardo Route Start Time Stop Time Status Last Admin Dose Admin Lidocaine HCl (Viscous Lidocaine 2% Soln) 10 ml NOW STAT PO 12/14/16 03:10 12/14/16 03:14 DC 12/14/16 03:32 10 ML Al Hydroxide/Mg Hydroxide (Maalox Susp) 30 ml NOW STAT PO 12/14/16 03:10 12/14/16 03:14 DC 12/14/16 03:32 30 ML Sodium Chloride 1,000 ml @ 999 mls/hr Q1H1M STAT IV 12/14/16 03:10 12/14/16 04:10 DC 12/14/16 03:32 999 MLS/HR Sodium Chloride 1,000 ml @ 125 mls/hr Q8H STAT IV 12/14/16 03:10 12/14/16 11:09 12/14/16 03:32 125 MLS/HR Ondansetron HCl (Zofran Inj) 4 mg NOW STAT IV 12/14/16 03:10 12/14/16 03:14 DC 12/14/16 03:32 4 MG Pantoprazole Sodium (Protonix Tab) 40 mg NOW STAT PO 12/14/16 04:50 12/14/16 04:52 DC 12/14/16 05:03 40 MG Metoclopramide HCl (Reglan Inj) 10 mg NOW STAT IV 12/14/16 04:50 12/14/16 04:52 DC 12/14/16 05:02 10 MG Diphenhydramine HCl (Benadryl Inj) 12.5 mg NOW STAT IV 12/14/16 04:50 12/14/16 04:52 DC 12/14/16 05:03 12.5 MG Sucralfate (Carafate Susp) 1 gm NOW STAT PO 12/14/16 05:37 12/14/16 05:38 DC 12/14/16 05:55 1 GM ED Course Prior records/ancillary studies reviewed. Triage Nursing notes reviewed. Additional history obtained from friend The patient's history was concerning for abdominal pain with EtOH abuse. Differential diagnosis: Etiologies such as alcohol abuse, appendicitis, diverticulitis, PUD, biliary pathology, UTI, pancreatitis, obstruction, mesenteric ischemia, aortic pathology , infections, inflammatory bowel disease, renal colic, as well as others were entertained. Physical examination findings: As above. ER treatment provided: GI cocktail, Zofran, Protonix On reassessment the patient felt better. Diagnostics interpreted by me: The labs revealed elevated LFTs, mildly elevated alcohol, mild anemia Imaging studies: Ultrasound was reviewed from the other day and negative for cholecystitis Exam and history seem consistent with acid reflux versus gastritis. Patient's been drinking of heavy alcohol. Patient is strongly encouraged to avoid alcohol and to follow-up GI. She is advised take the PPI as instructed. She was offered detox information and declined. Patient presented with her friend. Her friend started yelling at me stating that I opened up the curtain to watch her change. I informed both of these ladies that I did not do this and the patient actually changed in the bathroom. I told them I did not appreciate them insinuating that I wanted to watch them change. The patient had no concerns or comments over this and The friend was the one that was insinuating all of this. I informed my charge nurse Jack.By the evaluation outlined above emergent etiologies such as appendicitis, diverticulitis, biliary pathology, UTI, pancreatitis, obstruction, mesenteric ischemia, aortic pathology, infections, inflammatory bowel disease, renal colic, as well as others were deemed relatively unlikely. The pt informed about the findings as listed above. All questions were answered and pleased with the treatment. Return instructions were outlined and the patient was discharged in stable condition. Outpatient prescription management: Protonix Referral: The patient was referred back to their primary care physician and GI for follow- up in 2 to 3 days for a recheck of the current condition. Case reviewed with my attending Medical Decision As above Medication Reconcilliation Current Medication List: was personally reviewed by me Blood Pressure Screening Patient's blood pressure: Normal blood pressure Impression Primary Impression: Epigastric discomfort Additional Impressions: Nausea Alcohol abuse Departure Information Dispostion Home / Self-Care Condition GOOD Referrals No Doctor, Assigned (PCP) Patient Instructions My [facility] Additional Instructions Strongly recommend that you quit drinking alcohol. Protonix 40 m tablet daily for next 2 weeks. Take this on an empty stomach. Try Maalox or Zantac for breakthrough symptoms for reflux. Avoid large meals. Avoid acidic foods. Rest and drink plenty of fluids as tolerated. Continue current medications. Avoid strenuous activities and anything that worsens your pain. Resume normal activities once your symptoms resolve. Return to the ER immediately for worsening or persistent chest pain, abdominal pain, black or blood in your stools, vomiting, fevers, chest pains, difficulty breathing, worsening of your condition, or as needed. Follow up with your primary physician and GI in 2-3 days for a recheck of your current condition. Problem Qualifiers
[2016-12-14] MEDS ORDERED: PANT40TA PO (06:19)
[2016-12-14 06:42] VITALS: BP 127/75; PULSE 96; O2SAT 99
[2016-12-14] MEDS ORDERED: ONDANSETRON HOME PACK 4MG OD TAB ONE (07:00)
[2016-12-14] MEDS ORDERED: ONDANSETRON HOME PACK 4MG OD TAB PO ONE (07:00)
[2017-01-25] MEDS ORDERED: BNT20 PO (13:49)
== END 2016-12-14 06:42 | disposition home or self-care (01) ==
LOC: C.EDB 02:57 → C.EDA 06:42
DX: R10.13 Epigastric pain (principal); R11.0 Nausea; F10.10 Alcohol abuse, uncomplicated; F17.200 Nicotine dependence, unspecified, uncomplicated; Z82.49 Family history of ischemic heart disease and other diseases of the circulatory system

== ENCOUNTER 2017-01-09 22:21 | Emergency (ER) | payer OTHER ==
[~2017-01-09] VITALS: Ht 172.7 cm; Wt 57.4 kg
[~2017-01-09 22:21] MED LIST changes: -FOLI1TAB7 PO; -PANT40TA PO
[2017-01-09 22:25] VITALS: TEMP 37.1; Ht 172.7 cm; Wt 57.4 kg
[2017-01-09] MEDS ORDERED: ACET-1256 PO (22:48)
[2017-01-09] MEDS ORDERED: RANI150T3 PO (22:48)
[2017-01-09] MEDS ORDERED: DEXT1TAB15 PO (22:48)
[2017-01-09] MEDS ORDERED: SODIUM CHLORIDE 0.9% 1000ML 1,000 ML IV STA (23:08)
[2017-01-09] MEDS ORDERED: ONDANSETRON INJ 2 MG/ML 2 ML VIAL IV STA (23:08)
--- NOTE | 2017-01-09 23:21 | EMERGENCY ROOM VISIT NOTE ---
History Report prepared by Vita: Bowen Carrasco Under the Supervision of: Dr. Petros Colvin M.D. First contact with patient: 22:56 Chief Complaint: ABDOMINAL PAIN Stated Complaint: ABD PAIN Nursing Triage Summary: Abdominal pain this morning upon waking, nausea and lightheaded, vomiting. Mainly LUQ, non-radiating, "twisting" feeling. History of Present Illness The patient is a 21 year old black female with a past medical history of pancreatitis who presents to the ED with a cc of worsening sharp upper abdominal pain beginning today. Positive nausea and vomiting. Negative fevers, chills, back pain, melena, hematochezia, diarrhea, urinary symptoms. Over this year, the patient began experiencing a stomach ulcer. She states that this is because she drank too much alcohol. She states that she can only eat applesauce and jello without feeling stomach pains. Her pain is exacerbated by eating, drinking alcohol, or drinking anything acidic. She denies any recent antibiotics, travel, or sick contacts. She has not drank alcohol recently. Her last menstrual period was 1.5 months ago, which she states can happen when she doesn't eat normally. Source of History: patient Onset: today Position: abdomen (upper) Symptom Intensity: moderate Quality: sharp Timing: worsening Modifying Factors (Worsening): eating, drinking (alcohol) Associated Symptoms: + nausea, + vomiting, No fevers, No back pain, No melena, No hematochezia, No diarrhea, No urinary symptoms Review of Systems See HPI for pertinent positives and negatives. A total of ten systems were reviewed and were otherwise negative. Past Medical & Surgical Medical Problems: (1) Stomach ulcer Family History Hypertension Social History Smoking Status: Current Some Day Smoker Smokeless Tobacco Use: No Alcohol Use: occasionally Drug Use: none Marital Status: single Occupation Status: employed Current/Historical Medications Scheduled Acetaminophen (Tylenol), 1-2 TAB PO Q8 Cephalexin Monohydrate (Keflex), 500 MG PO BID Dextroamphetamine Sulfate (Dextroamphetamine Sulfate), 2 TAB PO DAILY Fluoxetine (Prozac), 10 MG PO DAILY Pantoprazole (Protonix), 40 MG PO DAILY Ranitidine Hcl (Zantac), 150 MG PO DAILY Scheduled PRN Hydroxyzine Pamoate (Vistaril), 1 CAP PO Q6H PRN for Anxiety Promethazine (Phenergan Suppository), 25 MG MI Q6H PRN for Nausea Promethazine Hcl (Phenergan), 25 MG PO Q6H PRN for Nausea Allergies Coded Allergies: No Known Allergies (Unverified , 01/09/17) Physical Exam Vital Signs Date Time Temp Pulse Resp B/P (MAP) Pulse Ox O2 Delivery O2 Flow Rate FiO2 01/10/17 01:29 94 16 132/90 99 01/10/17 00:49 96 16 130/93 100 Room Air 01/09/17 23:34 97 16 132/77 99 Room Air 01/09/17 22:25 37.1 99 18 120/82 98 Room Air Physical Exam GENERAL: Awake, alert, well-appearing, NAD HENT: Normocephalic, atraumatic. EYES: Normal conjunctiva. Sclera non-icteric. NECK: Supple. No nuchal rigidity. FROM. RESPIRATORY: CTAB, no rhonchi, wheezing, crackles CARDIAC: Tachycardic rate with a normal rhythm, no MRG ABDOMEN: Soft, epigastric LUQ and RUQ tenderness, no lower abdominal tenderness to palpation, ND, BS, negative Bender's sign. MSK: No chest wall TTP, no LE edema NEURO: GCS 15, CN 2-12 intact, moves all 4s on command SKIN: No rash or jaundice noted. Medical Decision & Procedures Laboratory Results 01/09/17 22:30 Red Blood Count 5.09, Mean Corpuscular Volume 78.4, Mean Corpuscular Hemoglobin 24.8, Mean Corpuscular Hemoglobin Concent 31.6, Mean Platelet Volume 9.3, Neutrophils (%) (Auto) 73.7, Lymphocytes (%) (Auto) 16.6, Monocytes (%) (Auto) 9.0, Eosinophils (%) (Auto) 0.1, Basophils (%) (Auto) 0.4, Neutrophils # (Auto) 6.15, Lymphocytes # (Auto) 1.39, Monocytes # (Auto) 0.75, Eosinophils # (Auto) 0.01, Basophils # (Auto) 0.03 01/09/17 22:30 Test 01/09/17 22:30 01/09/17 23:30 White Blood Count 8.35 K/uL (4.8-10.8) Red Blood Count 5.09 M/uL (4.2-5.4) Hemoglobin 12.6 g/dL (12.0-16.0) Hematocrit 39.9 % (37-47) Mean Corpuscular Volume 78.4 fL (80-100) Mean Corpuscular Hemoglobin 24.8 pg (25-34) Mean Corpuscular Hemoglobin Concent 31.6 g/dl (32-36) Platelet Count 404 K/uL (130-400) Mean Platelet Volume 9.3 fL (7.4-10.4) Neutrophils (%) (Auto) 73.7 % Lymphocytes (%) (Auto) 16.6 % Monocytes (%) (Auto) 9.0 % Eosinophils (%) (Auto) 0.1 % Basophils (%) (Auto) 0.4 % Neutrophils # (Auto) 6.15 K/uL (1.4-6.5) Lymphocytes # (Auto) 1.39 K/uL (1.2-3.4) Monocytes # (Auto) 0.75 K/uL (0.11-0.59) Eosinophils # (Auto) 0.01 K/uL (0-0.5) Basophils # (Auto) 0.03 K/uL (0-0.2) RDW Standard Deviation 48.2 fL (36.4-46.3) RDW Coefficient of Variation 17.0 % (11.5-14.5) Immature Granulocyte % (Auto) 0.2 % Immature Granulocyte # (Auto) 0.02 K/uL (0.00-0.02) Anion Gap 7.0 mmol/L (3-11) Est Creatinine Clear Calc Drug Dose 116.6 ml/min Estimated GFR () 142.9 Estimated GFR (Non- 123.3 BUN/Creatinine Ratio 10.4 (10-20) Calcium Level 9.6 mg/dl (8.5-10.1) Total Bilirubin 1.3 mg/dl (0.2-1) Direct Bilirubin 0.7 mg/dl (0-0.2) Aspartate Amino Transf (AST/SGOT) 73 U/L (15-37) Alanine Aminotransferase (ALT/SGPT) 76 U/L (12-78) Alkaline Phosphatase 455 U/L (45-117) Total Protein 7.7 gm/dl (6.4-8.2) Albumin 3.5 gm/dl (3.4-5.0) Lipase 48 U/L (73-393) Urine Color DK YELLOW Urine Appearance CLEAR (CLEAR) Urine pH 6.5 (4.5-7.5) Urine Specific [place] 1.033 (1.000-1.030) Urine Protein 1+ (NEG) Urine Glucose (UA) NEG (NEG) Urine Ketones 1+ (NEG) Urine Occult Blood NEG (NEG) Urine Nitrite POS (NEG) Urine Bilirubin 1+ (NEG) Urine Urobilinogen NEG (NEG) Urine Leukocyte Esterase TRACE (NEG) Urine WBC (Auto) 5-10 /hpf (0-5) Urine RBC (Auto) 0-4 /hpf (0-4) Urine Hyaline Casts (Auto) 5-10 /lpf (0-5) Urine Epithelial Cells (Auto) >30 /lpf (0-5) Urine Bacteria (Auto) NEG (NEG) Urine Test NEG (NEG) Laboratory results reviewed by me Medications Administered Medications (Trade) Dose Ordered Sig/Luis Eduardo Route Start Time Stop Time Status Last Admin Dose Admin Ondansetron HCl (Zofran Inj) 4 mg NOW STAT IV 01/09/17 23:08 01/09/17 23:10 DC 01/09/17 23:33 4 MG Sodium Chloride 1,000 ml @ 999 mls/hr Q1H1M STAT IV 01/09/17 23:08 01/10/17 00:08 DC 01/09/17 23:32 999 MLS/HR Promethazine HCl (Phenergan Inj) 25 mg NOW STAT IM 01/10/17 00:04 01/10/17 00:08 DC 01/10/17 00:29 25 MG Morphine Sulfate (MoRPHine SULFATE INJ) 6 mg NOW STAT IV 01/10/17 00:04 01/10/17 00:08 DC 01/10/17 00:27 6 MG Al Hydroxide/Mg Hydroxide (Maalox Susp) 30 ml STK-MED ONCE .ROUTE 01/10/17 00:23 01/10/17 00:24 DC 01/10/17 00:28 30 ML Lidocaine HCl (Viscous Lidocaine 2% Soln) 20 ml STK-MED ONCE .ROUTE 01/10/17 00:23 01/10/17 00:24 DC 01/10/17 00:28 20 ML Ceftriaxone Sodium (Rocephin Inj) 1 gm NOW STAT IV 01/10/17 00:33 01/10/17 00:35 DC 01/10/17 00:47 1 GM Promethazine HCl (Phenergan 25MG Home Pack) 1 [facility] UD ONCE PO 01/10/17 01:30 01/10/17 01:31 DC 01/10/17 01:31 [facility]: The patient was evaluated in room B2. A complete history and physical exam was performed. 0011: Bedside US results: Gallbladder wall normal, no pericholecystic fluid, CBD normal caliber, IVC looked flat. 0058: The patient was successful with her PO challenge. 0117: I reevaluated the patient. She will follow up with GI in the near future. Discussed results and discharge instructions: She verbalized understanding and agreement. The patient is ready for discharge. Medical Decision The patient is a 21 year old black female with a past medical history of pancreatitis who presents to the ED with a cc of worsening sharp upper abdominal pain beginning today. Positive nausea and vomiting. Negative fevers, chills, back pain, melena, hematochezia, diarrhea, urinary symptoms. Triage Nursing notes reviewed. The patient's presentation and history were concerning for appendicitis, diverticulitis, PUD, biliary pathology, UTI, pancreatitis, obstruction, mesenteric ischemia, aortic pathology, infections, inflammatory bowel disease, renal colic, as well as others were entertained. Patient recently seen with elevated LFTs and alk phos. H/o of pancreatitis in past. History most consistent w/ PUD/gastritis. BSUS completed w/ normal CBD, GBW, and no pericholecystic fluid. Patient did have mildly elevated alk phos but decreased from prior. Bili slightly greater than normal. May have some cholestasis. Pain improved. IVF improved tachycardia and tolerated PO. Even though upper ab symptoms, UA +LE, nitrite so will trx for UTI. Given Rx's. Counseled on return precautions, foods to avoid, and need to f/u w/ GI. Given PPI. D/c'ed to home. Medication Reconcilliation Current Medication List: was personally reviewed by me Blood Pressure Screening Patient's blood pressure: Normal blood pressure Blood pressure disposition: Did not require urgent referral Impression Primary Impression: PUD (peptic ulcer disease) Additional Impression: Gastritis Scribe Attestation The scribe's documentation has been prepared under my direction and personally reviewed by me in its entirety. I confirm that the note above accurately reflects all work, treatment, procedures, and medical decision making performed by me. Departure Information Dispostion Home / Self-Care Prescriptions Cephalexin Monohydrate (Keflex) 500 Mg Cap 500 MG PO BID for 7 Days, #14 CAP Prov: Petros Colvin M.D. 01/10/17 Pantoprazole (Protonix) 40 Mg Tab 40 MG PO DAILY for Documentation for 30 Days, #30 TAB Prov: Petros Colvin M.D. 01/10/17 Promethazine (Phenergan Suppository) 25 Mg Supp 25 MG MI Q6H Y for Nausea, #10 SUPP Prov: Petros Colvin M.D. 01/10/17 Promethazine Hcl (Phenergan) 25 Mg Tab 25 MG PO Q6H Y for Nausea, #15 TAB Prov: Petros Colvin M.D. 01/10/17 [facility] (PCP) Bertrand Costello M.D. Forms HOME CARE DOCUMENTATION FORM, IMPORTANT VISIT INFORMATION Patient Instructions ED Gastritis, ED Nausea Vomiting, ED PUD Vs Gastritis, My [facility] Additional Instructions Please return to the emergency department if you have worsening or recurrent symptoms not amenable to at-home treatment. Please call for a follow-up appointment with her primary care physician. Please take your medications as prescribed. If you have other concerns and/or complaints please feel free to also call your primary care physician's office or return the ED for further evaluation, management, and treatment. Problem Qualifiers Additional Impression: Gastritis Gastritis type: unspecified gastritis Chronicity: chronic Gastritis bleeding: presence of bleeding unspecified Qualified Codes: K29.50 - Unspecified chronic gastritis without bleeding
[2017-01-09 23:27] LABS: BASO % 0.4 %; BASO ABS # 0.03 K/uL (0-0.2); COMPLETE YES; EOS % 0.1 %; HEMATOCRIT 39.9 % (37-47); IG% 0.2 %; LYMPH % 16.6 %; LYMPH ABS # 1.39 K/uL (1.2-3.4); MEAN CELL VOLUME 78.4 fL (80-100); MEAN CORPUSCULAR HEMOGLOBIN 24.8 pg (25-34); MEAN CORPUSCULAR HGB CONC 31.6 g/dl (32-36); MEAN PLATELET VOLUME 9.3 fL (7.4-10.4); NEUT % 73.7 %; PLATELET COUNT 404 K/uL (130-400); RED BLOOD COUNT 5.09 M/uL (4.2-5.4); WHITE BLOOD COUNT 8.35 K/uL (4.8-10.8)
[2017-01-09 23:39] LABS: BUN/CREATININE RATIO 10.4 (10-20); CALCIUM 9.6 mg/dl (8.5-10.1); CREATININE 0.68 mg/dl (0.60-1.20); POTASSIUM 3.6 mmol/L (3.5-5.1)
[2017-01-09 23:45] LABS: URINE APPEARANCE CLEAR (CLEAR); URINE COLOR DK YELLOW; URINE EPITHELIAL CELL AUTO >30 /lpf (0-5); URINE NITRITE POS (NEG); URINE PH 6.5 (4.5-7.5); URINE SPECIFIC GRAVITY 1.033 (1.000-1.030); UROBILINOGEN NEG (NEG); ZZUR CULT IF INDIC CLEAN CATCH NO
[2017-01-09 23:47] LABS: URINE BILIRUBIN 1+ (NEG)
[2017-01-09 23:48] LABS: MANUAL MICROSCOPIC REQUIRED? NO; REVIEW REQ? NO
[2017-01-10] MEDS ORDERED: PROMETHAZINE HCL INJ 25 MG/ML 1 ML VIAL IM STA (00:04)
[2017-01-10] MEDS ORDERED: MoRPHine SULFATE 10 MG/ML CARP/VIAL IV STA (00:04)
[2017-01-10] MEDS ORDERED: GI COCKTAIL PO STA (00:04)
[2017-01-10] MEDS ORDERED: ALUMINUM/MAGNESIUM SUSP 30 ML UDC ONE (00:23)
[2017-01-10] MEDS ORDERED: LIDOCAINE HCL 2% VISC SOLN 20 ML UDC ONE (00:23)
[2017-01-10] MEDS ORDERED: CEFTRIAXONE SOD INJ 1 GM ADDVIAL IV STA (00:33)
[2017-01-10] MEDS ORDERED: PANT40TA PO (01:21)
[2017-01-10] MEDS ORDERED: PROM25TA9 PO (01:21)
[2017-01-10] MEDS ORDERED: PROM1SUP19 PR (01:21)
[2017-01-10 01:29] VITALS: BP 132/90; PULSE 94; O2SAT 99
[2017-01-10] MEDS ORDERED: PHENERGAN 25MG HOMEPACK PO ONE (01:30)
[2017-01-10] MEDS ORDERED: CEPH500C PO (01:35)
--- NOTE | 2017-01-11 11:19 | Pharmacy Progress Note ---
ED Pharmacist Progress Note Date of Service: Jan 11, 2017. Received call from friend of patient requesting that prescriptions from 8 PM be transferred to [facility] on [address] (previously electronically submitted to [facility]). Counseled that [facility] can do so by calling [facility]. Counseled for friend to call [facility] on [address] and provide name of each of the medications they wish to transfer.
[2017-01-25] MEDS ORDERED: BNT20 PO (13:49)
== END 2017-01-10 01:36 | disposition home or self-care (01) ==
LOC: EDBD 22:21 → C.EDB 22:24
DX: K27.3 Acute peptic ulcer, site unspecified, without hemorrhage or perforation (principal); K29.70 Gastritis, unspecified, without bleeding; F17.200 Nicotine dependence, unspecified, uncomplicated; Z87.19 Personal history of other diseases of the digestive system; Z79.899 Other long term (current) drug therapy; Z82.49 Family history of ischemic heart disease and other diseases of the circulatory system

== ENCOUNTER 2017-01-22 05:37 | Observation (INO) | payer OTHER ==
[~2017-01-22] VITALS: Ht 172.7 cm; Wt 53.6 kg
[~2017-01-22 05:37] MED LIST changes: +ACET-1256 PO; +DEXT1TAB15 PO; -MULT-506 PO; +PANT40TA PO; +PROM1SUP19 PR; +PROM25TA9 PO; +RANI150T3 PO
[2017-01-22 05:46] VITALS: Ht 172.7 cm; Wt 53.6 kg
[2017-01-22] MEDS ORDERED: METOCLOPRAMIDE HCL INJ 5 MG/ML 2 ML VIAL IV STA (05:58)
[2017-01-22] MEDS ORDERED: SODIUM CHLORIDE 0.9% 1000ML 1,000 ML IV STA ×2 (05:58)
[2017-01-22] MEDS ORDERED: RANITIDINE HCL 50 MG/100 ML D5W IV STA (05:58)
[2017-01-22] MEDS ORDERED: DiphenhydrAMINE HCL 50 MG/ML VIAL IV STA (05:58)
[2017-01-22 06:21] LABS: BASO % 0.3 %; BASO ABS # 0.02 K/uL (0-0.2); COMPLETE YES; HEMATOCRIT 40.3 % (37-47); IG% 0.3 %; LYMPH % 15.1 %; MEAN CELL VOLUME 79.2 fL (80-100); MEAN CORPUSCULAR HEMOGLOBIN 26.3 pg (25-34); MEAN CORPUSCULAR HGB CONC 33.3 g/dl (32-36); MEAN PLATELET VOLUME 9.3 fL (7.4-10.4); MONO % 6.7 %; NEUT % 77.6 %; PLATELET COUNT 356 K/uL (130-400); RED BLOOD COUNT 5.09 M/uL (4.2-5.4); WHITE BLOOD COUNT 7.94 K/uL (4.8-10.8)
[2017-01-22] MEDS ORDERED: MoRPHine SULFATE 4 MG/ML 1 ML CARP\\VIAL IV STA (06:38)
[2017-01-22 06:41] LABS: BUN/CREATININE RATIO 15.9 (10-20); CALCIUM 9.8 mg/dl (8.5-10.1); CREATININE 0.82 mg/dl (0.60-1.20); POTASSIUM 3.6 mmol/L (3.5-5.1)
[2017-01-22] MEDS ORDERED: ONDANSETRON HOME PACK 4MG OD TAB PO ONE (06:45)
[2017-01-22 06:54] LABS: PREG INTERNAL NEGATIVE QC NEG CLEAR BACKGROUND; PREG INTERNAL POSITIVE QC POS CONTROL LINE
[2017-01-22 07:40] LABS: INR 1.1 (0.9-1.1); PARTIAL THROMBOPLASTIN RATIO 1.1; PROTHROMBIN TIME (PATIENT) 12.1 SECONDS (9.0-12.0)
[2017-01-22 07:52] LABS: BENZODIAZEPINE, URINE NEG (NEG); COCAINE,URINE NEG (NEG); PHENCYCLIDINE, URINE NEG (NEG)
[2017-01-22] MEDS ORDERED: ONDANSETRON INJ 2 MG/ML 2 ML VIAL IV STA (08:51)
[2017-01-22] MEDS ORDERED: OPTIRAY 320 IV PRN (10:15)
--- NOTE | 2017-01-22 10:47 | DIAGNOSTIC IMAGING REPORT ---
CT SCAN OF THE ABDOMEN AND PELVIS WITH IV CONTRAST CLINICAL HISTORY: Epigastric abdominal pain. Elevated hepatic transaminases. Nausea and vomiting. COMPARISON STUDY: Abdominal CT dated 08/22/2016. TECHNIQUE: Following the IV administration of 92 cc of Optiray 320, CT scan of the abdomen and pelvis is performed from the lung bases to the proximal femora. Images are reviewed in the axial, sagittal, and coronal planes. IV contrast was administered without complication. Automated dose control exposure was utilized. A dose lowering technique was utilized adhering to the principles of ALARA. CT DOSE: 253.17 mGy.cm FINDINGS: Lung bases: The heart is normal in size and without pericardial effusion. The lung bases are clear. Liver: The contrast-enhanced liver is normal in size, contour, and attenuation. There is no intrahepatic biliary ductal dilatation. The hepatic veins and portal veins are patent. Gallbladder: Unremarkable. Spleen: Normal in size and attenuation. Pancreas: Unremarkable. Adrenal glands: Unremarkable. Kidneys: The contrast enhanced kidneys are normal in size and without hydronephrosis. The kidneys enhance symmetrically. Abdominal vasculature: The abdominal aorta is normal in course and caliber. Bowel: The small bowel and colon are normal in course and caliber. The appendix is well-visualized and normal. Peritoneum: There is no intraperitoneal free air or abdominal ascites. There is a small fat-containing umbilical hernia. A naval piercing is noted. Lymphadenopathy: None. Pelvic viscera: The bladder, uterus, and adnexa are normal as visualized. There are bilateral ovarian follicles. Skeletal structures: No lytic or blastic lesions are seen. IMPRESSION: There are no acute infectious or inflammatory findings in the abdomen or pelvis. Electronically signed by: James Lowery M.D. 01/22/2017 10:46 AM Dictated Date/Time: 01/22/2017 10:36 AM
[2017-01-22] MEDS ORDERED: AMPH20TA2 PO (11:17)
[2017-01-22] MEDS ORDERED: SUCR1TAB29 PO (11:17)
[2017-01-22] MEDS ORDERED: ONDA4TAB65 PO (11:17)
[2017-01-22] MEDS ORDERED: HYDR-3126 PO (11:17)
[2017-01-22] MEDS ORDERED: IV FLUIDS COMPLETED PRN (11:30)
--- NOTE | 2017-01-22 11:58 | History and Physical ---
History & Physical Date & Time of Service: Jan 22, 2017 ~ 10:45 Chief Complaint: Abdominal Pain Primary Care Physician: Winston Rod M.D. (MEDICAL) History of Present Illness 21 year old female who presents to the ER with abdominal pain, nausea, and vomiting. Patient reports chronic epigastric abdominal pain for the past 6 months however symptoms acutely worsened 5 days ago. She has been diagnosed with alcoholic hepatitis and does admit that typically her symptoms would flare up after drinking. She was seen by GI as an outpatient and is scheduled for an EGG/EUS next week. Patient reports she has not drank any alcohol for the past 3 weeks. She reports that five days ago she drank a lot of coffee and "junk food" . Since then, she reports sever stabbing epigastric pain with radiation to the left. She also has had several episodes of vomiting and is unable to keep anything down. She used Zofran and Phenergan without relief. She also smoked marijuana once to help with the pain and nausea. She denies hematemesis and coffee ground emesis. She reports one episode of diarrhea. She denies BRBPR and dark tarry stools. She denies fever and chills. No chest pain or shortness of breath. She denies lightheadedness, dizziness, diaphoresis, and syncopal events. In the ED, she is found to have a transaminitis (which she has had in the past). Other labs are unremarkable. CT abd/pelvis is negative for acute findings. She was treated with IVF, IV Zofran, IV Reglan, IV Benadryl, IV Zantac , and IV morphine. She continues to have nausea and was unable to keep down water and crackers. Past Medical/Surgical History Medical Problems: (1) Alcoholic hepatitis Status: Chronic (2) Mood disorder Status: Chronic Family History Hypertension Social History Smoking Status: Current Every Day Smoker Alcohol Use: history of heavy alochol use, patient reports no alochol in the past 3 weeks Drug Use: marijuana Multi-Drug Resistant Organisms History of MDRO: No Allergies Coded Allergies: No Known Allergies (Unverified , 01/22/17) Home Medications Scheduled Amphetamine-Dextroamphetamine 20MG (Adderall 20MG), 1 TAB PO DAILY Fluoxetine (Prozac), 10 MG PO DAILY Pantoprazole (Protonix), 40 MG PO DAILY Sucralfate (Carafate), 1 TAB PO ACHS Scheduled PRN Hydroxyzine Hcl (Atarax), 50 MG PO Q6H PRN for Anxiety Ondansetron Hcl (Zofran), 4 MG PO Q8H PRN for Nausea Promethazine (Phenergan Suppository), 25 MG AR Q6H PRN for Nausea Promethazine Hcl (Phenergan), 25 MG PO Q6H PRN for Nausea Review of Systems ROS per HPI, all other systems reviewed and negative Physical Exam Vital Signs Date Time Temp Pulse Resp B/P (MAP) Pulse Ox O2 Delivery O2 Flow Rate FiO2 01/22/17 11:21 Room Air 01/22/17 11:00 128/94 Room Air 01/22/17 10:04 80 16 128/94 Room Air 01/22/17 09:44 86 16 109/68 100 Room Air 01/22/17 09:22 109/68 98 01/22/17 08:37 98 16 121/88 100 Room Air 01/22/17 07:41 83 136/95 99 Room Air 01/22/17 07:14 80 16 143/107 100 Room Air 01/22/17 06:29 88 18 134/104 100 86 134/96 100 134/84 01/22/17 06:26 103 01/22/17 06:05 96 Room Air 01/22/17 05:46 37.3 87 18 145/99 97 Room Air General Appearance: no apparent distress Head: normocephalic, atraumatic Eyes: normal inspection, sclerae normal ENT: hearing grossly normal Neck: supple, no JVD Respiratory/Chest: lungs clear, normal breath sounds, no respiratory distress Cardiovascular: regular rate, rhythm, no edema, normal peripheral pulses Abdomen/GI: normal bowel sounds, soft, + tenderness (mild, epigastric) Extremities/Musculoskelatal: normal inspection, no calf tenderness Neurologic/Psych: no motor/sensory deficits, alert, normal mood/affect, oriented x 3 Skin: normal color, warm/dry Diagnostics Laboratory Results Results Past 24 Hours Test 01/22/17 06:05 01/22/17 07:15 01/22/17 11:23 Range/Units White Blood Count 7.94 4.8-10.8 K/uL Red Blood Count 5.09 4.2-5.4 M/uL Hemoglobin 13.4 12.0-16.0 g/dL Hematocrit 40.3 37-47 % Mean Corpuscular Volume 79.2 80-100 fL Mean Corpuscular Hemoglobin 26.3 25-34 pg Mean Corpuscular Hemoglobin Concent 33.3 32-36 g/dl Platelet Count 356 130-400 K/uL Mean Platelet Volume 9.3 7.4-10.4 fL Neutrophils (%) (Auto) 77.6 % Lymphocytes (%) (Auto) 15.1 % Monocytes (%) (Auto) 6.7 % Eosinophils (%) (Auto) 0.0 % Basophils (%) (Auto) 0.3 % Neutrophils # (Auto) 6.17 1.4-6.5 K/uL Lymphocytes # (Auto) 1.20 1.2-3.4 K/uL Monocytes # (Auto) 0.53 0.11-0.59 K/uL Eosinophils # (Auto) 0.00 0-0.5 K/uL Basophils # (Auto) 0.02 0-0.2 K/uL RDW Standard Deviation 52.3 36.4-46.3 fL RDW Coefficient of Variation 18.3 11.5-14.5 % Immature Granulocyte % (Auto) 0.3 % Immature Granulocyte # (Auto) 0.02 0.00-0.02 K/uL Prothrombin Time 12.1 9.0-12.0 SECONDS Prothromb Time International Ratio 1.1 0.9-1.1 Activated Partial Thromboplast Time 27.7 21.0-31.0 SECONDS Partial Thromboplastin Ratio 1.1 Sodium Level 135 136-145 mmol/L Potassium Level 3.6 3.5-5.1 mmol/L Chloride Level 98 98-107 mmol/L Carbon Dioxide Level 24 21-32 mmol/L Anion Gap 13.0 3-11 mmol/L Blood Urea Nitrogen 13 7-18 mg/dl Creatinine 0.82 0.60-1.20 mg/dl Est Creatinine Clear Calc Drug Dose 90.3 ml/min Estimated GFR () 116.9 Estimated GFR (Non- 100.9 BUN/Creatinine Ratio 15.9 10-20 Random Glucose 69 70-99 mg/dl Calcium Level 9.8 8.5-10.1 mg/dl Total Bilirubin 2.0 0.2-1 mg/dl Direct Bilirubin 1.1 0-0.2 mg/dl Aspartate Amino Transf (AST/SGOT) 123 15-37 U/L Alanine Aminotransferase (ALT/SGPT) 116 12-78 U/L Alkaline Phosphatase 401 45-117 U/L Total Protein 8.1 6.4-8.2 gm/dl Albumin 3.6 3.4-5.0 gm/dl Lipase 45 73-393 U/L Human Chorionic Gonadotropin, Qual NEG NEG Urine Opiates Screen NEG NEG Urine Methadone, Qualitative NEG NEG Urine Barbiturates NEG NEG Urine Phencyclidine (PCP) Level NEG NEG Ur Amphetamine/Methamphetamine POS NEG MDMA (Ecstasy) Screen NEG NEG Urine Benzodiazepines Screen NEG NEG Urine Cocaine Metabolite NEG NEG Urine Marijuana (THC) POS NEG Diagnostic Radiology CT ABD/PELVIS IMPRESSION: There are no acute infectious or inflammatory findings in the abdomen or pelvis. Impression Assessment and Plan INTRACTABLE NAUSEA, VOMITING, EPIGASTRIC PAIN TRANSAMINITIS, HX ALCOHOLIC HEPATITIS - admit to med/surg - patient presenting with intractable nausea, vomiting, and epigastric pain x 5 days; work up in the ED showing transaminitis (which patient has had in the past ), CT abd/pelvis unremarkable - patient with history of alcoholic hepatitis - however reports no alcohol use in the past 3 weeks; will check ETOH level - UDS + for marijuana - would consider cannabis hyperemesis however patient reports only one use - ? need for MRCP - noted normal lipase and no CBD on CT - defer to GI - treat conservatively with NPO, IVF, IV PPI, PRN antiemetics - case discussed with NISHA Cochran MOOD DISORDER - continue home meds DVT PROPHYLAXIS - SCDs DISPO - The patient will be placed as observation status for now until further work up is complete. Attending addendum: Agree with the above H&P; please refer to above for more details. Patient is a 21 yo female who presented to the ER for complaints of intractable N/V that has been ongoing for at least 1 week. She reports ingestion of anything , including water, induces vomiting. She states she has been unable to keep anything down for the last week and that she has not been urinating much either. The emesis is usually yellow/green bilious but a few days ago she notes it appeared like coffee grounds, and yesterday she saw a few streaks of blood as well. She has some discomfort in the epigastric area. Cardiac: RR, S1 and S2 auscultated Respiratory: CTA B/L GI: soft, NTND, +BS; subjective discomfort in the epigastric Intractable Nausea/Vomiting: -patient with recurrent ER visits for same complaint, with some associated epipastic pain -CT abd pelvis do not show evidence of pancreatitis, lipase negative despite patient having a past history of pancreatitis -continue with PPI -clear liquids -GI consultation; patient is scheduled for outpatient EGD -patient denies any alcohol use for over 3 weeks although she has a history of alcohol abuse Elevated LFT's: -previously elevated following alcohol use; patient denies any recent use Advanced Directives Existing Living Will: No Existing Power of Proofing Machine Operator: No VTE Prophylaxis VTE Risk Assessment Done? Y/N: Yes Risk Level: Low
[2017-01-22 12:42] VITALS: BP 106/74; PULSE 74; TEMP 36.9; O2SAT 99
--- NOTE | 2017-01-22 12:54 | Gastrointestinal Consultation ---
Gastrointestinal Consultation Date of Consultation: Jan 22, 2017 Attending Physician: Rama Griffiths Consulting Physician: Norris Leyva Reason for Consultation: N/V, abd pain, ETOH hepatitis History of Present Illness Patient is a 21 year old female who presented to ED w c/o abd pain, n/v. She has hx of ETOH abuse, reports last use "a few weeks ago". Hx of pancreatitis treated in [place] 6 months ago. She had been seen by NISHA Noble in GI clinic on 01/14/17, planned for EGD/EUS eval by Dr. Leyva next week. However she kept on having epigastric stabbing pain on daily basis even when she quit ETOH intake thus presented to ED. Upon eval, she is hemodynamically stable. Labs showed no leukocytosis, H/H normal. No coagulopathy, CMP showed no signs of kidney failure/injury. LFTs showed improved transaminases in 100s compared to previous outpt values of 500s, though Tbili increased from <1 to 2, and alk phos of 400s. Lipase normal. test negative. Urine tox showed + amphetamine (Adderrall), marijuana, ETOH <3. CT abd/pelvis showed no signs of biliary dilation, normal liver, pancreas. Past Medical/Surgical History Medical Problems: (1) Alcohol abuse Status: Acute (2) Alcohol abuse Status: Acute (3) Alcohol use with intoxication Status: Acute (4) Anemia Status: Acute (5) Elevated LFTs Status: Acute (6) Epigastric discomfort Status: Acute (7) Epigastric discomfort Status: Acute (8) Gastritis Status: Acute (9) Nausea Status: Acute (10) PUD (peptic ulcer disease) Status: Acute Past Medical History: See above. Family History Hypertension Social History Smoking Status: Current Every Day Smoker Alcohol Use: occasionally Drug Use: marijuana Allergies Coded Allergies: No Known Allergies (Unverified , 01/22/17) Current Medications Home Meds and Scripts Medications Dose Route/Sig Max Daily Dose Days Date Category Atarax (Hydroxyzine Hcl) 50 Mg Tab 50 Mg PO Q6H PRN 01/22/17 Reported Zofran (Ondansetron Hcl) 4 Mg Tab 4 Mg PO Q8H PRN 01/22/17 Reported Carafate (Sucralfate) 1 Gm Tab 1 Tab PO ACHS 30 01/22/17 Reported Adderall 20MG (Amphetamine-Dextroamphetamine 20MG) 1 Tab Tab 1 Tab PO DAILY 30 01/22/17 Reported Protonix (Pantoprazole Sodium) 40 Mg Tab 40 Mg PO DAILY 30 01/10/17 Rx Phenergan Suppository (Promethazine HCl) 25 Mg Supp 25 Mg SC Q6H PRN 01/10/17 Rx Phenergan (Promethazine HCl) 25 Mg Tab 25 Mg PO Q6H PRN 01/10/17 Rx Prozac (Fluoxetine HCl) 10 Mg Cap 10 Mg PO DAILY 11/28/16 Reported Review of Systems Constitutional: No fever, No chills Respiratory: No cough, No shortness of breath Cardiac: No chest pain Abdomen: + pain (epigastric, stabbing), No nausea, No vomiting, No diarrhea Skin: No rash, No itch, No jaundice Physical Exam Date Time Temp Pulse Resp B/P (MAP) Pulse Ox O2 Delivery O2 Flow Rate FiO2 01/22/17 12:42 36.9 74 16 106/74 (85) 99 Room Air 01/22/17 11:52 82 16 125/74 100 Room Air 01/22/17 11:21 Room Air 01/22/17 11:00 128/94 Room Air 01/22/17 10:04 80 16 128/94 Room Air 01/22/17 09:44 86 16 109/68 100 Room Air 01/22/17 09:22 109/68 98 01/22/17 08:37 98 16 121/88 100 Room Air 01/22/17 07:41 83 136/95 99 Room Air 01/22/17 07:14 80 16 143/107 100 Room Air 01/22/17 06:29 88 18 134/104 100 86 134/96 100 134/84 01/22/17 06:26 103 01/22/17 06:05 96 Room Air 01/22/17 05:46 37.3 87 18 145/99 97 Room Air General Appearance: WD/WN, no apparent distress Eyes: normal inspection, PERRL, EOMI Neck: supple, no JVD, trachea midline Respiratory/Chest: normal breath sounds, no respiratory distress, no accessory muscle use Cardiovascular: regular rate, rhythm, no gallop, no murmur Abdomen: normal bowel sounds, soft, + tenderness (epigastric ) Extremities: normal inspection, no pedal edema, no calf tenderness Neurologic/Psych: alert, normal mood/affect, oriented x 3 Skin: normal color, no jaundice, no rash Laboratory Results Last 24 Hours Test 01/22/17 05:58 01/22/17 06:05 01/22/17 07:15 01/22/17 11:23 White Blood Count 7.94 K/uL Red Blood Count 5.09 M/uL Hemoglobin 13.4 g/dL Hematocrit 40.3 % Mean Corpuscular Volume 79.2 fL Mean Corpuscular Hemoglobin 26.3 pg Mean Corpuscular Hemoglobin Concent 33.3 g/dl Platelet Count 356 K/uL Mean Platelet Volume 9.3 fL Neutrophils (%) (Auto) 77.6 % Lymphocytes (%) (Auto) 15.1 % Monocytes (%) (Auto) 6.7 % Eosinophils (%) (Auto) 0.0 % Basophils (%) (Auto) 0.3 % Neutrophils # (Auto) 6.17 K/uL Lymphocytes # (Auto) 1.20 K/uL Monocytes # (Auto) 0.53 K/uL Eosinophils # (Auto) 0.00 K/uL Basophils # (Auto) 0.02 K/uL RDW Standard Deviation 52.3 fL RDW Coefficient of Variation 18.3 % Immature Granulocyte % (Auto) 0.3 % Immature Granulocyte # (Auto) 0.02 K/uL Prothrombin Time 12.1 SECONDS Prothromb Time International Ratio 1.1 Activated Partial Thromboplast Time 27.7 SECONDS Partial Thromboplastin Ratio 1.1 Sodium Level 135 mmol/L Potassium Level 3.6 mmol/L Chloride Level 98 mmol/L Carbon Dioxide Level 24 mmol/L Anion Gap 13.0 mmol/L Blood Urea Nitrogen 13 mg/dl Creatinine 0.82 mg/dl Est Creatinine Clear Calc Drug Dose 90.3 ml/min Estimated GFR () 116.9 Estimated GFR (Non- 100.9 BUN/Creatinine Ratio 15.9 Random Glucose 69 mg/dl Calcium Level 9.8 mg/dl Total Bilirubin 2.0 mg/dl Direct Bilirubin 1.1 mg/dl Aspartate Amino Transf (AST/SGOT) 123 U/L Alanine Aminotransferase (ALT/SGPT) 116 U/L Alkaline Phosphatase 401 U/L Total Protein 8.1 gm/dl Albumin 3.6 gm/dl Lipase 45 U/L Human Chorionic Gonadotropin, Qual NEG Urine Opiates Screen NEG Urine Methadone, Qualitative NEG Urine Barbiturates NEG Urine Phencyclidine (PCP) Level NEG Ur Amphetamine/Methamphetamine POS MDMA (Ecstasy) Screen NEG Urine Benzodiazepines Screen NEG Urine Cocaine Metabolite NEG Urine Marijuana (THC) POS Ethyl Alcohol mg/dL < 3.0 mg/dl Impression Patient is a 21 year old female w hx of pancreatitis, ETOH and marijuana abuses , who presented w ongoing epigastric area abd pain, increased Tbili though transaminases are better compared to previous outpt values. Lipase normal. CT abd/pelvis w/o liver, pancreas abnormalities, no biliary ductal dilation. Plan - Keep NPO for now - Obtain MRCP to r/o CBD stone. - Plan for possible EGD eval tomorrow +/- EUS. - Protonix 40mg IV daily - ETOH abstinence advised. Consider case management involvement for substance abuse counseling resources. I have seen, examined, and agree with the plan as outlined above by NISHA Moore. -Soft abd -Chronic abdominal pain with persistence, plan for EGD, review MRCP and decide upon EUS given labs etc -Symptomatic care in the interim
[2017-01-22] MEDS: SODIUM CHLORIDE 0.9% 1000ML 1,000 ML IV SCH ×2 (14:11→21:28)
[2017-01-22] MEDS: PANTOprazole INJ 40 MG in SYRINGE 0 ML IV SCH (14:18)
[2017-01-22 14:21] LABS: URINE APPEARANCE CLEAR (CLEAR); URINE COLOR DK YELLOW; URINE EPITHELIAL CELL AUTO >30 /lpf (0-5); URINE NITRITE POS (NEG); UROBILINOGEN NEG (NEG); ZZUR CULT IF INDIC CLEAN CATCH NO
[2017-01-22 14:28] LABS: URINE BILIRUBIN 2+ (NEG)
[2017-01-22 14:30] LABS: MANUAL MICROSCOPIC REQUIRED? NO; REVIEW REQ? YES
[2017-01-22] MEDS: ONDANSETRON INJ 2 MG/ML 2 ML VIAL IV PRN (15:43)
[2017-01-22 15:53] VITALS: BP 139/91; PULSE 67; TEMP 37; O2SAT 93
[2017-01-22 16:00] VITALS: O2SAT 93
[2017-01-22] MEDS: KETOROLAC TROMETHAMINE 15 MG/ML VIAL IV PRN (16:24)
[2017-01-22] MEDS: SUCRALFATE 1 GM TAB PO SCH ×2 (16:27→21:25)
--- NOTE | 2017-01-22 16:57 | EMERGENCY ROOM VISIT NOTE ---
ED Visit Note Chief Complaint: Nausea, vomiting and abdominal pain History of Present Illness: Ms. Chávez is a 21 year-old black female was care was transferred to [place] by Melanie Diana PA-C at the end of her shift pending laboratory tests. Please see her notes for patient's initial evaluation. 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 She is scheduled to see gastroenterology and approximately one week for an EGD. Patient reports me that she has been having epigastric abdominal pain that is slightly more prominent on the left for the last 5 days. She describes the pain as a sharp cramping sensation. On the time of transfer of care she rates her discomfort 4/10. But does report it waxes and wanes in intensity. Associated with her pain is nausea and vomiting. Prior to care transfer patient was hydrated and received morphine, ranitidine, Benadryl and metoclopramide for her symptoms with moderate relief. Past Medical History: As previously noted, mood disorder. Current Medications: Medications Dose Route/Sig Max Daily Dose Days Date Category Atarax (Hydroxyzine Hcl) 50 Mg Tab 50 Mg PO Q6H PRN 01/22/17 Reported Zofran (Ondansetron Hcl) 4 Mg Tab 4 Mg PO Q8H PRN 01/22/17 Reported Carafate (Sucralfate) 1 Gm Tab 1 Tab PO ACHS 30 01/22/17 Reported Adderall 20MG (Amphetamine-Dextroamphetamine 20MG) 1 Tab Tab 1 Tab PO DAILY 30 01/22/17 Reported Protonix (Pantoprazole Sodium) 40 Mg Tab 40 Mg PO DAILY 30 01/10/17 Rx Phenergan Suppository (Promethazine HCl) 25 Mg Supp 25 Mg [place] Q6H PRN 01/10/17 Rx Phenergan (Promethazine HCl) 25 Mg Tab 25 Mg PO Q6H PRN 01/10/17 Rx Prozac (Fluoxetine HCl) 10 Mg Cap 10 Mg PO DAILY 11/28/16 Reported Allergies to Medications: Patient denies. Social History: Patient feels safe in her home environment; she admits to alcohol and illicit drug use. Physical Examination: Vital Signs: Date Time Temp Pulse Resp B/P (MAP) Pulse Ox O2 Delivery O2 Flow Rate FiO2 01/22/17 11:00 128/94 Room Air 01/22/17 10:04 80 16 128/94 Room Air 01/22/17 09:44 86 16 109/68 100 Room Air 01/22/17 09:22 109/68 98 01/22/17 08:37 98 16 121/88 100 Room Air 01/22/17 07:41 83 136/95 99 Room Air 01/22/17 07:14 80 16 143/107 100 Room Air 01/22/17 06:29 88 18 134/104 100 86 134/96 100 134/84 01/22/17 06:26 103 01/22/17 06:05 96 Room Air 01/22/17 05:46 37.3 87 18 145/99 97 Room Air GENERAL: 21-year-old female in mild to moderate distress due to symptoms, chronically ill-appearing, afebrile and hemodynamically stable. NEUROLOGICAL: Awake, alert and oriented to person, place and time. Answering questions appropriately and following commands. SKIN: Warm, dry and pink. No soft tissue eruptions or trauma noted. HEENT: Atraumatic and normocephalic. BACK: No tenderness over the bony spine. No CVA tenderness. THORAX: Lungs sounds are clear to auscultation and equal bilaterally with symmetrical chest wall. HEART: Regular rate and rhythm. No gallops, rubs or murmurs are appreciated. ABDOMEN: Flat and soft with mild epigastric and left upper quadrant tenderness. Positive bowel sounds in all quadrants. No guarding, rigidity or organomegaly. EXTREMITIES: Moves all extremities well on command and with purpose. All distal neurovascular statuses are intact and equal bilaterally. ED Course: Patient is assessed as noted above. Laboratory Testing: Test 01/22/17 06:05 01/22/17 07:15 Range/Units White Blood Count 7.94 4.8-10.8 K/uL Red Blood Count 5.09 4.2-5.4 M/uL Hemoglobin 13.4 12.0-16.0 g/dL Hematocrit 40.3 37-47 % Mean Corpuscular Volume 79.2 80-100 fL Mean Corpuscular Hemoglobin 26.3 25-34 pg Mean Corpuscular Hemoglobin Concent 33.3 32-36 g/dl Platelet Count 356 130-400 K/uL Mean Platelet Volume 9.3 7.4-10.4 fL Neutrophils (%) (Auto) 77.6 % Lymphocytes (%) (Auto) 15.1 % Monocytes (%) (Auto) 6.7 % Eosinophils (%) (Auto) 0.0 % Basophils (%) (Auto) 0.3 % Neutrophils # (Auto) 6.17 1.4-6.5 K/uL Lymphocytes # (Auto) 1.20 1.2-3.4 K/uL Monocytes # (Auto) 0.53 0.11-0.59 K/uL Eosinophils # (Auto) 0.00 0-0.5 K/uL Basophils # (Auto) 0.02 0-0.2 K/uL RDW Standard Deviation 52.3 36.4-46.3 fL RDW Coefficient of Variation 18.3 11.5-14.5 % Immature Granulocyte % (Auto) 0.3 % Immature Granulocyte # (Auto) 0.02 0.00-0.02 K/uL Prothrombin Time 12.1 9.0-12.0 SECONDS Prothromb Time International Ratio 1.1 0.9-1.1 Activated Partial Thromboplast Time 27.7 21.0-31.0 SECONDS Partial Thromboplastin Ratio 1.1 Sodium Level 135 136-145 mmol/L Potassium Level 3.6 3.5-5.1 mmol/L Chloride Level 98 98-107 mmol/L Carbon Dioxide Level 24 21-32 mmol/L Anion Gap 13.0 3-11 mmol/L Blood Urea Nitrogen 13 7-18 mg/dl Creatinine 0.82 0.60-1.20 mg/dl Est Creatinine Clear Calc Drug Dose 90.3 ml/min Estimated GFR () 116.9 Estimated GFR (Non- 100.9 BUN/Creatinine Ratio 15.9 10-20 Random Glucose 69 70-99 mg/dl Calcium Level 9.8 8.5-10.1 mg/dl Total Bilirubin 2.0 0.2-1 mg/dl Direct Bilirubin 1.1 0-0.2 mg/dl Aspartate Amino Transf (AST/SGOT) 123 15-37 U/L Alanine Aminotransferase (ALT/SGPT) 116 12-78 U/L Alkaline Phosphatase 401 45-117 U/L Total Protein 8.1 6.4-8.2 gm/dl Albumin 3.6 3.4-5.0 gm/dl Lipase 45 73-393 U/L Human Chorionic Gonadotropin, Qual NEG NEG Urine Color DK YELLOW Urine Appearance CLEAR CLEAR Urine pH 6.0 4.5-7.5 Urine Specific [place] 1.030 1.000-1.030 Urine Protein 1+ NEG Urine Glucose (UA) NEG NEG Urine Ketones 4+ NEG Urine Occult Blood 3+ NEG Urine Nitrite POS NEG Urine Bilirubin 2+ NEG Urine Urobilinogen NEG NEG Urine Leukocyte Esterase SMALL NEG Urine WBC (Auto) 5-10 0-5 /hpf Urine RBC (Auto) 0-4 0-4 /hpf Urine Hyaline Casts (Auto) 1-5 0-5 /lpf Urine Epithelial Cells (Auto) >30 0-5 /lpf Urine Bacteria (Auto) NEG NEG Urine Crystals CALCIUM OXALATE NONE PRSENT Urine Opiates Screen NEG NEG Urine Methadone, Qualitative NEG NEG Urine Barbiturates NEG NEG Urine Phencyclidine (PCP) Level NEG NEG Ur Amphetamine/Methamphetamine POS NEG MDMA (Ecstasy) Screen NEG NEG Urine Benzodiazepines Screen NEG NEG Urine Cocaine Metabolite NEG NEG Urine Marijuana (THC) POS NEG Contrast Abdominal/Pelvic CT: Radiological Testing: Was reviewed by myself and read by the radiologist showing no acute infectious or inflammatory findings in the abdomen or pelvis. During my care the patient she continuously was hydrated and was given an additional 4 mg of Zofran IV for nausea. She was trialed with water and saltines and had return of nausea and vomiting. Patient's case was consulted with case management and the [facility] for medical observation/admission. Patient was educated about today's findings. Clinical Impression: Irretractable nausea/vomiting. Epigastric pain. Alcohol hepatitis. Disposition and Plan: Patient be brought in the hospital for observation/ admission; please eat a hospitalist notes and orders for final disposition and plan.
--- NOTE | 2017-01-22 17:37 | DIAGNOSTIC IMAGING REPORT ---
MRCP HISTORY: 21 years-old Female abd pain, hx of pancreatitis, etoh abuse; r/o CBD stone acute upper abdominal pain with history of pancreatitis. Patient presents with 5 days of nausea and vomiting with left-sided abdominal pain. Follow-up study. COMPARISON: CT abdomen and pelvis 01/22/2017, color ultrasound 11/28/2016. TECHNIQUE: MRCP according to institutional protocol was obtained without contrast. 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 The gallbladder and common bile duct appear normal without focal filling defect or dilation. Common bile duct measures 3 mm. The pancreatic duct is not well seen. No focal pancreatic ductal dilation or filling defects. IMPRESSION: 1. No biliary ductal dilation or focal filling defects identified. 2. Pancreatic duct not well seen. No focal pancreatic ductal dilation identified. The above report was generated using voice recognition software. It may contain grammatical, syntax or spelling errors. Electronically signed by: Andrés Tran M.D. 01/22/2017 5:35 PM Dictated Date/Time: 01/22/2017 4:07 PM
[2017-01-22] MEDS: PROCHLORPERAZINE INJ 10 MG in SYRINGE 8 ML IV PRN (19:32)
[2017-01-22 23:46] VITALS: BP 107/72; PULSE 91; TEMP 36.9; O2SAT 100
--- NOTE | 2017-01-23 02:52 | EMERGENCY ROOM VISIT NOTE ---
History First contact with patient: 05:54 Chief Complaint: ABDOMINAL PAIN Stated Complaint: ABDOMINAL PAIN Nursing Triage Summary: refer to triage note History of Present Illness The patient is a 21 year old female who presents to the Emergency Room with complaints of epigastric left upper quadrant pain for the past 5 days described as aching, ranging in severity currently 8 out of 10 with nausea and vomiting. Nothing makes it better or worse. It does not radiate. Patient is a history of pancreatitis and symptoms of similar. No recent alcohol intake. Patient states she finished her PPI from her last visit. Patient has appointment next week with GI, Dr. Hyde for endoscopy. Patient denies black or blood in her stool, chest pain, dyspnea, fever, chills, cough, congestion. Patient states she cannot keep fluids down. No blood or black in the vomit. Review of Systems See HPI for pertinent positives & negatives. A total of 10 systems reviewed and were otherwise negative. Past Medical/Surgical History Medical Problems: (1) Alcoholic hepatitis (2) Mood disorder Pancreatitis Family History Hypertension Social History Smoking Status: Current Every Day Smoker Alcohol Use: occasionally Drug Use: none Marital Status: single Occupation Status: employed, [employer] student Current/Historical Medications Scheduled Amphetamine-Dextroamphetamine 20MG (Adderall 20MG), 1 TAB PO DAILY Fluoxetine (Prozac), 10 MG PO DAILY Pantoprazole (Protonix), 40 MG PO DAILY Sucralfate (Carafate), 1 TAB PO ACHS Scheduled PRN Hydroxyzine Hcl (Atarax), 50 MG PO Q6H PRN for Anxiety Ondansetron Hcl (Zofran), 4 MG PO Q8H PRN for Nausea Promethazine (Phenergan Suppository), 25 MG NH Q6H PRN for Nausea Promethazine Hcl (Phenergan), 25 MG PO Q6H PRN for Nausea Physical Exam Vital Signs Date Time Temp Pulse Resp B/P (MAP) Pulse Ox O2 Delivery O2 Flow Rate FiO2 01/22/17 11:00 128/94 Room Air 01/22/17 10:04 80 16 128/94 Room Air 01/22/17 09:44 86 16 109/68 100 Room Air 01/22/17 09:22 109/68 98 01/22/17 08:37 98 16 121/88 100 Room Air 01/22/17 07:41 83 136/95 99 Room Air 01/22/17 07:14 80 16 143/107 100 Room Air 01/22/17 06:29 88 18 134/104 100 86 134/96 100 134/84 01/22/17 06:26 103 01/22/17 06:05 96 Room Air 01/22/17 05:46 37.3 87 18 145/99 97 Room Air Physical Exam VITALS: Vitals are noted on the nurse's note and reviewed by myself. Vital signs stable. GENERAL: female, in no acute distress, nondiaphoretic, well-developed well- nourished. SKIN: The skin was without rashes, erythema, edema, or bruising. There is no tenting of the skin. Capillary reflex less than 2 seconds. HEAD: Normocephalic atraumatic. EARS: External auditory canals clear, tympanic membranes pearly gillespie without erythema or effusion bilaterally. EYES: Pupils equal round and reactive to light and accommodation. Conjunctivae without injection, sclerae without icterus. Extraocular movements intact. NOSE: Patent, turbinates without inflammation or discharge. MOUTH: Mucous membranes mildly dry. Pharynx without erythema or exudate. Uvula midline. Airway patent. Tongue does not deviate. NECK: Supple without nuchal rigidity. No lymphadenopathy. No thyromegaly. Cervical spine is nontender. No JVD. HEART: Regular rate and rhythm without murmurs gallops or rubs. LUNGS: Clear to auscultation bilaterally without wheezes, rales or rhonchi. No dullness to percussion. No retractions or accessory muscle use. ABDOMEN: Positive bowel sounds x 4. Normal tympanic percussion. Soft, tender to palpation epigastric left upper quadrant, no CVA tenderness, without masses or organomegaly. Bender sign negative. No guarding or rebound tenderness. MUSCULOSKELETAL: No muscle atrophy, erythema, or edema noted. NEURO: Patient was alert and oriented to person place and time. Normal sensation to light and sharp touch. No focal neurological deficits. Medical Decision & Procedures Laboratory Results 01/22/17 06:05 Red Blood Count 5.09, Mean Corpuscular Volume 79.2, Mean Corpuscular Hemoglobin 26.3, Mean Corpuscular Hemoglobin Concent 33.3, Mean Platelet Volume 9.3, Neutrophils (%) (Auto) 77.6, Lymphocytes (%) (Auto) 15.1, Monocytes (%) (Auto) 6.7, Eosinophils (%) (Auto) 0.0, Basophils (%) (Auto) 0.3, Neutrophils # (Auto) 6.17, Lymphocytes # (Auto) 1.20, Monocytes # (Auto) 0.53, Eosinophils # (Auto) 0.00, Basophils # (Auto) 0.02 01/22/17 06:05 Test 01/22/17 06:05 01/22/17 07:15 White Blood Count 7.94 K/uL (4.8-10.8) Red Blood Count 5.09 M/uL (4.2-5.4) Hemoglobin 13.4 g/dL (12.0-16.0) Hematocrit 40.3 % (37-47) Mean Corpuscular Volume 79.2 fL (80-100) Mean Corpuscular Hemoglobin 26.3 pg (25-34) Mean Corpuscular Hemoglobin Concent 33.3 g/dl (32-36) Platelet Count 356 K/uL (130-400) Mean Platelet Volume 9.3 fL (7.4-10.4) Neutrophils (%) (Auto) 77.6 % Lymphocytes (%) (Auto) 15.1 % Monocytes (%) (Auto) 6.7 % Eosinophils (%) (Auto) 0.0 % Basophils (%) (Auto) 0.3 % Neutrophils # (Auto) 6.17 K/uL (1.4-6.5) Lymphocytes # (Auto) 1.20 K/uL (1.2-3.4) Monocytes # (Auto) 0.53 K/uL (0.11-0.59) Eosinophils # (Auto) 0.00 K/uL (0-0.5) Basophils # (Auto) 0.02 K/uL (0-0.2) RDW Standard Deviation 52.3 fL (36.4-46.3) RDW Coefficient of Variation 18.3 % (11.5-14.5) Immature Granulocyte % (Auto) 0.3 % Immature Granulocyte # (Auto) 0.02 K/uL (0.00-0.02) Prothrombin Time 12.1 SECONDS (9.0-12.0) Prothromb Time International Ratio 1.1 (0.9-1.1) Activated Partial Thromboplast Time 27.7 SECONDS (21.0-31.0) Partial Thromboplastin Ratio 1.1 Anion Gap 13.0 mmol/L (3-11) Est Creatinine Clear Calc Drug Dose 90.3 ml/min Estimated GFR () 116.9 Estimated GFR (Non- 100.9 BUN/Creatinine Ratio 15.9 (10-20) Calcium Level 9.8 mg/dl (8.5-10.1) Total Bilirubin 2.0 mg/dl (0.2-1) Direct Bilirubin 1.1 mg/dl (0-0.2) Aspartate Amino Transf (AST/SGOT) 123 U/L (15-37) Alanine Aminotransferase (ALT/SGPT) 116 U/L (12-78) Alkaline Phosphatase 401 U/L (45-117) Total Protein 8.1 gm/dl (6.4-8.2) Albumin 3.6 gm/dl (3.4-5.0) Lipase 45 U/L (73-393) Human Chorionic Gonadotropin, Qual NEG (NEG) Urine Color DK YELLOW Urine Appearance CLEAR (CLEAR) Urine pH 6.0 (4.5-7.5) Urine Specific Blanchard 1.030 (1.000-1.030) Urine Protein 1+ (NEG) Urine Glucose (UA) NEG (NEG) Urine Ketones 4+ (NEG) Urine Occult Blood 3+ (NEG) Urine Nitrite POS (NEG) Urine Bilirubin 2+ (NEG) Urine Urobilinogen NEG (NEG) Urine Leukocyte Esterase SMALL (NEG) Urine WBC (Auto) 5-10 /hpf (0-5) Urine RBC (Auto) 0-4 /hpf (0-4) Urine Hyaline Casts (Auto) 1-5 /lpf (0-5) Urine Epithelial Cells (Auto) >30 /lpf (0-5) Urine Bacteria (Auto) NEG (NEG) Urine Crystals CALCIUM OXALATE (NONE Urine Opiates Screen NEG (NEG) Urine Methadone, Qualitative NEG (NEG) Urine Barbiturates NEG (NEG) Urine Phencyclidine (PCP) Level NEG (NEG) Ur Amphetamine/Methamphetamine POS (NEG) MDMA (Ecstasy) Screen NEG (NEG) Urine Benzodiazepines Screen NEG (NEG) Urine Cocaine Metabolite NEG (NEG) Urine Marijuana (THC) POS (NEG) Medications Administered Medications (Trade) Dose Ordered Sig/Luis Eduardo Route Start Time Stop Time Status Last Admin Dose Admin Sodium Chloride 1,000 ml @ 999 mls/hr Q1H1M STAT IV 01/22/17 05:58 01/22/17 06:58 DC 01/22/17 06:16 999 MLS/HR Sodium Chloride 1,000 ml @ 125 mls/hr Q8H STAT IV 01/22/17 05:58 01/22/17 12:57 DC 01/22/17 07:09 125 MLS/HR Metoclopramide HCl (Reglan Inj) 10 mg NOW STAT IV 01/22/17 05:58 01/22/17 06:00 DC 01/22/17 06:15 10 MG Diphenhydramine HCl (Benadryl Inj) 12.5 mg NOW STAT IV 01/22/17 05:58 01/22/17 06:00 DC 01/22/17 06:15 12.5 MG Ranitidine HCl (zANTac IV) 50 mg NOW STAT IV 01/22/17 05:58 01/22/17 06:00 DC 01/22/17 06:15 50 MG Morphine Sulfate (MoRPHine SULFATE INJ) 4 mg NOW STAT IV 01/22/17 06:38 01/22/17 06:39 DC 01/22/17 07:10 4 MG Ondansetron HCl (Zofran Inj) 4 mg NOW STAT IV 01/22/17 08:51 01/22/17 08:53 DC 01/22/17 08:56 4 MG ED Course Prior records/ancillary studies reviewed. Triage Nursing notes reviewed. Additional history obtained from friend The patient's history was concerning for abdominal pain. Differential diagnosis: Etiologies such as appendicitis, diverticulitis, PUD, biliary pathology, UTI, pancreatitis, obstruction, mesenteric ischemia, aortic pathology, infections, inflammatory bowel disease, renal colic, as well as others were entertained. Physical examination findings: As above. ER treatment provided: Reglan, Benadryl, Zantac, IV fluids On reassessment the patient felt better. Diagnostics interpreted by me: The labs revealed no leukocytosis, stable H&H, chronically elevated LFTs. Recent negative hepatitis panel per chart review Imaging studies: Ultrasound from last month was reviewed and negative for cholecystitis Biliary ultrasound CLINICAL HISTORY: epigastric pain, elevated LFTs COMPARISON STUDY: CT scan dated 08/22/2016 FINDINGS: The pancreas appears normal as visualized. The liver appears sonographically normal. There is no ductal dilatation. The common buttock measures 3 mm. The gallbladder appears normal. There is no right-sided hydronephrosis. IMPRESSION: Normal biliary ultrasound. Electronically signed by: Brien Chambers M.D. 11/29/2016 6:43 AM Exam and history seem to be consistent with her ongoing epigastric discomfort for the past several months. Patient's been seen multiple times in the ER for same complaint. she has been advised multiple times to continue care with GI and to abstain from alcohol. She apparently continues to drink. Case was signed out to Jose Spangler PA-C, pending re-eval and labs in stable condition. Case reviewed with my Attending. Medical Decision As above [place] Drug Monitoring Program Search Results: patient reviewed within database, no issues identified Medication Reconcilliation Current Medication List: was personally reviewed by me Blood Pressure Screening Patient's blood pressure: Normal blood pressure Impression Primary Impression: Epigastric abdominal pain Additional Impression: Vomiting Departure Information Referrals Winston Rod M.D. (MEDICAL) (PCP) Patient Instructions My [facility] Problem Qualifiers Additional Impression: Vomiting Vomiting type: unspecified Vomiting Intractability: non-intractable Nausea presence: with nausea Qualified Codes: R11.2 - Nausea with vomiting, unspecified
[2017-01-23] MEDS: ONDANSETRON INJ 2 MG/ML 2 ML VIAL IV PRN ×3 (03:02→16:01)
[2017-01-23] MEDS: SUCRALFATE 1 GM TAB PO SCH ×4 (03:07→20:42)
[2017-01-23] MEDS: PROCHLORPERAZINE INJ 10 MG in SYRINGE 8 ML IV PRN ×2 (03:50→14:15)
[2017-01-23 06:09] LABS: HEMATOCRIT 38.9 % (37-47); MEAN CORPUSCULAR HEMOGLOBIN 25.1 pg (25-34); MEAN CORPUSCULAR HGB CONC 31.4 g/dl (32-36); MEAN PLATELET VOLUME 9.6 fL (7.4-10.4); PLATELET COUNT 258 K/uL (130-400); RED BLOOD COUNT 4.86 M/uL (4.2-5.4); WHITE BLOOD COUNT 5.42 K/uL (4.8-10.8)
[2017-01-23 06:39] LABS: BUN/CREATININE RATIO 9.8 (10-20); CALCIUM 8.7 mg/dl (8.5-10.1); CREATININE 0.6 mg/dl (0.60-1.20); POTASSIUM 3.2 mmol/L (3.5-5.1)
[2017-01-23 06:41] LABS: ALB/GLOB RATIO 0.9 (0.9-2)
[2017-01-23 07:17] VITALS: BP 129/84; PULSE 75; TEMP 37; O2SAT 99
[2017-01-23 08:00] VITALS: O2SAT 98
[2017-01-23] MEDS: AMPHETAMINE ASP/SULF/DEXTRAMPH 20 MG TAB PO SCH (08:00)
[2017-01-23] MEDS: POTASSIUM CHLR 10 MEQ / WTR 10 MEQ in PREMIXED WATER 100 ML IV SCH ×2 (08:53→10:10)
[2017-01-23] MEDS: KETOROLAC TROMETHAMINE 15 MG/ML VIAL IV PRN (08:53)
[2017-01-23] MEDS: SODIUM CHLORIDE 0.9% 1000ML 1,000 ML IV SCH ×2 (08:55→17:06)
--- NOTE | 2017-01-23 11:00 | Gastroenterology Progress Note ---
Progress Note Date of Service: Jan 23, 2017 Subjective Pt evaluation today including: conversation w/ patient Feels somewhat improved, but generally similar to past Medications Current Inpatient Medications Medications (Trade) Dose Ordered Sig/Luis Eduardo Route Start Time Stop Time Status Last Admin Dose Admin Ioversol (Optiray 320) 100 ml UD PRN IV 01/22/17 10:15 01/26/17 10:14 Ondansetron HCl (Zofran Inj) 4 mg Q6H PRN IV 01/22/17 11:15 02/21/17 11:14 01/23/17 08:53 4 MG Pantoprazole Sodium 40 mg/ Syringe 10 ml @ 5 mls/min DAILY@11 IV 01/22/17 14:00 02/21/17 13:59 01/22/17 14:18 5 MLS/MIN Sodium Chloride 1,000 ml @ 100 mls/hr Q10H IV 01/22/17 11:15 02/21/17 11:14 01/23/17 08:55 100 MLS/HR Amphetamine Aspartate/ Amphetam Sulf (Amphetamine Aspartate/Amph Sulf/Dextramphet) 20 mg DAILY PO 01/23/17 08:00 02/06/17 08:59 Fluoxetine HCl (Prozac Cap) 10 mg DAILY PO 01/23/17 08:00 02/22/17 08:59 Sucralfate (Carafate Tab) 1 gm ACHS PO 01/22/17 16:30 02/21/17 16:29 01/22/17 21:25 1 GM Miscellaneous (Iv Fluids Completed) 1 ea PRN PRN N/A 01/22/17 11:30 01/22/18 11:29 Ketorolac Tromethamine (Toradol Inj) 15 mg Q6H PRN IV 01/22/17 16:00 01/27/17 15:59 01/23/17 08:53 15 MG Prochlorperazine Edisylate 10 mg/ Syringe 10 ml @ 5 mls/min Q8H PRN IV 01/22/17 19:00 02/21/17 18:59 01/23/17 03:50 5 MLS/MIN Potassium Chloride 10 meq/ Prmx 100 ml @ 100 mls/hr Q1H IV 01/23/17 09:00 01/23/17 10:59 01/23/17 10:10 100 MLS/HR Objective Vital Signs Date Time Temp Pulse Resp B/P (MAP) Pulse Ox O2 Delivery O2 Flow Rate FiO2 01/23/17 10:54 37.0 76 16 139/88 (105) 98 Room Air 01/23/17 07:17 37.0 75 16 129/84 (99) 99 Room Air 01/23/17 05:46 Room Air 01/23/17 00:05 Room Air 01/22/17 23:46 36.9 91 20 107/72 (84) 100 Room Air 01/22/17 22:00 Room Air 01/22/17 16:00 93 Room Air 01/22/17 15:53 37.0 67 18 139/91 (107) 93 Room Air 01/22/17 12:42 36.9 74 16 106/74 (85) 99 Room Air 01/22/17 11:52 82 16 125/74 100 Room Air 01/22/17 11:21 Room Air 01/22/17 11:00 128/94 Room Air Physical Exam General Appearance: WD/WN, no apparent distress Eyes: normal inspection ENT: normal ENT inspection, hearing grossly normal Neck: supple, no adenopathy Respiratory/Chest: chest non-tender, lungs clear Cardiovascular: regular rate, rhythm, no edema Abdomen: normal bowel sounds Extremities: normal range of motion Laboratory Results Last 24 Hours Test 01/22/17 11:23 01/23/17 05:41 Ethyl Alcohol mg/dL < 3.0 mg/dl White Blood Count 5.42 K/uL Red Blood Count 4.86 M/uL Hemoglobin 12.2 g/dL Hematocrit 38.9 % Mean Corpuscular Volume 80.0 fL Mean Corpuscular Hemoglobin 25.1 pg Mean Corpuscular Hemoglobin Concent 31.4 g/dl RDW Standard Deviation 51.4 fL RDW Coefficient of Variation 17.8 % Platelet Count 258 K/uL Mean Platelet Volume 9.6 fL Sodium Level 135 mmol/L Potassium Level 3.2 mmol/L Chloride Level 100 mmol/L Carbon Dioxide Level 23 mmol/L Anion Gap 12.0 mmol/L Blood Urea Nitrogen 6 mg/dl Creatinine 0.60 mg/dl Est Creatinine Clear Calc Drug Dose 123.4 ml/min Estimated GFR () 148.9 Estimated GFR (Non- 128.5 BUN/Creatinine Ratio 9.8 Random Glucose 61 mg/dl Calcium Level 8.7 mg/dl Magnesium Level 1.7 mg/dl Total Bilirubin 1.9 mg/dl Aspartate Amino Transf (AST/SGOT) 125 U/L Alanine Aminotransferase (ALT/SGPT) 109 U/L Alkaline Phosphatase 307 U/L Total Protein 6.6 gm/dl Albumin 3.1 gm/dl Globulin 3.5 gm/dl Albumin/Globulin Ratio 0.9 Assessment and Plan 21 yo with chronic abdominal pain -Lfts with slight improvement today -MRCP normal -EGD today with further recs to follow
[2017-01-23] MEDS ORDERED: LIDOCAINE HCL 2% 2 ML VIAL (20MG/ML) ONE (12:31)
[2017-01-23] MEDS ORDERED: PROPOFOL IV EMULSION 10 MG/ML 20 ML VIAL IV ONE (12:31)
--- NOTE | 2017-01-23 12:39 | GI REPORT ---
Procedure Date: 01/23/2017 12:14 PM Procedure: Upper GI endoscopy Indications: Epigastric abdominal pain, Abdominal pain in the right upper quadrant Medicines: General Anesthesia Complications: No immediate complications. Estimated blood loss: None. Estimated Blood Loss: Estimated blood loss: none. Procedure: Pre-Anesthesia Assessment: - Pre-Anesthesia Assessment: - Prior to the procedure, a History and Physical was performed, and patient medications, allergies and sensitivities were reviewed. The patient's tolerance of previous anesthesia was reviewed. Please see Brigade for complete details. - The risks and benefits of the procedure and the sedation options and risks were discussed with the patient. All questions were answered and informed consent was obtained. - Patient identification and proposed procedure were verified prior to the procedure by the physician and the nurse. The procedure was verified in the pre-procedure area in the procedure room. After obtaining informed consent, the endoscope was passed carefully and meticuously under direct vision and only advanced when the lumen was clearly identified, C02 insuflation was utilized throughout the entirity of the procedure. Throughout the procedure, the patient's blood pressure, pulse, and oxygen saturations were monitored continuously. After obtaining informed consent, the endoscope was passed under direct vision. Throughout the procedure, the patient's blood pressure, pulse, and oxygen saturations were monitored continuously. The scope was introduced through the mouth, and advanced to the second part of duodenum. The upper GI endoscopy was accomplished without difficulty. The patient tolerated the procedure well. Findings: The examined esophagus was normal. The entire examined stomach was normal. Biopsies were taken with a cold forceps for histology. The examined duodenum was normal. Biopsies for histology were taken with a cold forceps for evaluation of celiac disease. Impression: - Normal esophagus. - Normal stomach. Biopsied. - Normal examined duodenum. Biopsied. Recommendation: - Await pathology results. - [facility] patient to [facility] for possible discharge same day. - Use Prilosec (omeprazole) 20 mg PO BID. - As needed bentyl - Follow LFT's, advance diet as tolerated, if pain perists then consider EUS as scheduled Norris Leyva MD 01/23/2017 12:39:12 PM This report has been signed electronically. Note Initiated On: 01/23/2017 12:14 PM I attest to the content of the Intraoperative Record and orders documented therein, exceptions below
--- NOTE | 2017-01-23 12:42 | Anesthesiology Progress Note ---
Anesthesia Post Op Note Date & Time Jan 23, 2017 at 12:42 Vital Signs Pain Intensity: 6.0 Vital Signs Past 12 Hours Date Time Temp Pulse Resp B/P (MAP) Pulse Ox O2 Delivery O2 Flow Rate FiO2 01/23/17 10:54 37.0 76 16 139/88 (105) 98 Room Air 01/23/17 08:00 98 Room Air 01/23/17 07:17 37.0 75 16 129/84 (99) 99 Room Air 01/23/17 05:46 Room Air Notes Mental Status: alert / awake / arousable, participated in evaluation Pt Amnestic to Procedure: Yes Nausea / Vomiting: adequately controlled Pain: adequately controlled Airway Patency, RR, SpO2: stable & adequate BP & HR: stable & adequate Hydration State: stable & adequate Anesthetic Complications: no major complications apparent
[2017-01-23 14:07] VITALS: BP 106/71; PULSE 87; TEMP 37; O2SAT 99
[2017-01-23] MEDS: FLUOXETINE HCL 10 MG CAP PO SCH (14:15)
[2017-01-23] MEDS ORDERED: DICYCLOMINE HCL 20 MG TAB PO PRN (14:15)
[2017-01-23] MEDS: PANTOprazole INJ 40 MG in SYRINGE 0 ML IV SCH (14:15)
[2017-01-23] MEDS ORDERED: MAGNESIUM HYDROXIDE SUSP 30 ML UDC PO ONE (15:00)
--- NOTE | 2017-01-23 15:15 | Progress Note ---
Internal Med Progress Note Date of Service: Jan 23, 2017. Provider Documentation: SUBJECTIVE: The patient was seen and examined S/P EGD-Unremarkable Nausea but denies any abdominal pain OBJECTIVE: Vital Signs-as noted below Exam: General-no distress at rest Eyes-normal ENT-Normal Neck-supple Lungs-clear to auscultate bilaterally Heart-Regular,no murmur appreciated Abdomen-Soft,nontender,bowel sound present Extremities-No edema Neuro-AAOx3 Lab data as noted below. ASSESSMENT & PLAN: INTRACTABLE NAUSEA, VOMITING, EPIGASTRIC PAIN TRANSAMINITIS, HX ALCOHOLIC HEPATITIS - patient presenting with intractable nausea, vomiting, and epigastric pain x 5 days; -work up in the ED showing transaminitis (which patient has had in the past), CT abd/pelvis unremarkable - has history of alcoholic hepatitis - however reports no alcohol use in the past 3 weeks; -LFTs are improving and Hepatitis Screen were negative before -has been NPO ,IVF and Symptomatic treatment -MRCP::1. No biliary ductal dilation or focal filling defects identified. 2. Pancreatic duct not well seen. No focal pancreatic ductal dilation identified. Appreciate GI input S/P -negative EGD Continue PPI OP EUS H/O Alcohol abuse - UDS + for marijuana - would consider cannabis hyperemesis however patient reports only one use MOOD DISORDER - continue home meds -no acute issue DVT PROPHYLAXIS - SCDs DISPO -Likely home tomorrow Vital Signs: Date Time Temp Pulse Resp B/P (MAP) Pulse Ox O2 Delivery O2 Flow Rate FiO2 01/23/17 14:07 37.0 87 16 106/71 (83) 99 Room Air 01/23/17 12:49 80 16 137/102 (114) 100 Room Air 01/23/17 12:34 104 16 96/59 (71) 100 Room Air 01/23/17 10:54 37.0 76 16 139/88 (105) 98 Room Air 01/23/17 08:00 98 Room Air 01/23/17 07:17 37.0 75 16 129/84 (99) 99 Room Air 01/23/17 05:46 Room Air 01/23/17 00:05 Room Air 01/22/17 23:46 36.9 91 20 107/72 (84) 100 Room Air 01/22/17 22:00 Room Air 01/22/17 16:00 93 Room Air 01/22/17 15:53 37.0 67 18 139/91 (107) 93 Room Air Lab Results: Results Past 24 Hours Test 01/23/17 05:41 01/23/17 11:17 Range/Units White Blood Count 5.42 4.8-10.8 K/uL Red Blood Count 4.86 4.2-5.4 M/uL Hemoglobin 12.2 12.0-16.0 g/dL Hematocrit 38.9 37-47 % Mean Corpuscular Volume 80.0 80-100 fL Mean Corpuscular Hemoglobin 25.1 25-34 pg Mean Corpuscular Hemoglobin Concent 31.4 32-36 g/dl RDW Standard Deviation 51.4 36.4-46.3 fL RDW Coefficient of Variation 17.8 11.5-14.5 % Platelet Count 258 130-400 K/uL Mean Platelet Volume 9.6 7.4-10.4 fL Sodium Level 135 136-145 mmol/L Potassium Level 3.2 3.5-5.1 mmol/L Chloride Level 100 98-107 mmol/L Carbon Dioxide Level 23 21-32 mmol/L Anion Gap 12.0 3-11 mmol/L Blood Urea Nitrogen 6 7-18 mg/dl Creatinine 0.60 0.60-1.20 mg/dl Est Creatinine Clear Calc Drug Dose 123.4 ml/min Estimated GFR () 148.9 Estimated GFR (Non- 128.5 BUN/Creatinine Ratio 9.8 10-20 Random Glucose 61 70-99 mg/dl Calcium Level 8.7 8.5-10.1 mg/dl Magnesium Level 1.7 1.8-2.4 mg/dl Total Bilirubin 1.9 0.2-1 mg/dl Aspartate Amino Transf (AST/SGOT) 125 15-37 U/L Alanine Aminotransferase (ALT/SGPT) 109 12-78 U/L Alkaline Phosphatase 307 45-117 U/L Total Protein 6.6 6.4-8.2 gm/dl Albumin 3.1 3.4-5.0 gm/dl Globulin 3.5 2.5-4.0 gm/dl Albumin/Globulin Ratio 0.9 0.9-2
[2017-01-23 23:57] VITALS: BP 120/84; PULSE 79; TEMP 37; O2SAT 94
[2017-01-24] MEDS: SODIUM CHLORIDE 0.9% 1000ML 1,000 ML IV SCH ×3 (02:49→21:28)
[2017-01-24] MEDS: SUCRALFATE 1 GM TAB PO SCH ×4 (06:17→21:26)
[2017-01-24 06:31] LABS: ALT/SGPT 104 U/L (12-78); BLOOD UREA NITROGEN 3 mg/dl (7-18); BUN/CREATININE RATIO 5.3 (10-20); CALCIUM 8.6 mg/dl (8.5-10.1); CARBON DIOXIDE 27 mmol/L (21-32); CHLORIDE 105 mmol/L (98-107); CREATININE 0.49 mg/dl (0.60-1.20); GLUCOSE 65 mg/dl (70-99); POTASSIUM 3.1 mmol/L (3.5-5.1); SODIUM 139 mmol/L (136-145)
[2017-01-24 06:41] LABS: ALKALINE PHOSPHATASE 260 U/L (45-117); AST/SGOT 114 U/L (15-37)
[2017-01-24 07:14] VITALS: BP 107/72; PULSE 67; TEMP 36.9; O2SAT 100
[2017-01-24] MEDS: PANTOprazole SOD 40 MG TAB PO SCH (08:18)
[2017-01-24] MEDS: FLUOXETINE HCL 10 MG CAP PO SCH (08:19)
[2017-01-24] MEDS: AMPHETAMINE ASP/SULF/DEXTRAMPH 20 MG TAB PO SCH (08:21)
[2017-01-24] MEDS: KETOROLAC TROMETHAMINE 15 MG/ML VIAL IV PRN (08:51)
[2017-01-24] MEDS: ONDANSETRON INJ 2 MG/ML 2 ML VIAL IV PRN ×2 (08:51→16:09)
[2017-01-24] MEDS ORDERED: BISACODYL 5 MG TABEC PO ONE (10:00)
[2017-01-24] MEDS ORDERED: POTASSIUM CHLORIDE 20 MEQ TABCR PO STA (11:12)
[2017-01-24] MEDS: PROCHLORPERAZINE INJ 10 MG in SYRINGE 8 ML IV PRN (11:48)
--- NOTE | 2017-01-24 12:59 | Gastroenterology Progress Note ---
Progress Note Date of Service: Jan 24, 2017 Subjective Pt evaluation today including: conversation w/ patient, physical exam, chart review, lab review, review of inpatient medication list Pt tolerated CL diet last night but this AM started having n/v after CL for breakfast. Still persistent mid abd pain. Also c/o no BMs x over a week, yesterday given Milk of Mg. EGD grossly unremarkable. Review of Systems Constitutional: No fever, No chills Respiratory: No cough Cardiac: No chest pain Abdomen: + pain, + nausea, + vomiting, + constipation Medications Current Inpatient Medications Medications (Trade) Dose Ordered Sig/Luis Eduardo Route Start Time Stop Time Status Last Admin Dose Admin Ioversol (Optiray 320) 100 ml UD PRN IV 01/22/17 10:15 01/26/17 10:14 Ondansetron HCl (Zofran Inj) 4 mg Q6H PRN IV 01/22/17 11:15 02/21/17 11:14 01/24/17 08:51 4 MG Sodium Chloride 1,000 ml @ 100 mls/hr Q10H IV 01/22/17 11:15 02/21/17 11:14 01/24/17 11:52 100 MLS/HR Amphetamine Aspartate/ Amphetam Sulf (Amphetamine Aspartate/Amph Sulf/Dextramphet) 20 mg DAILY PO 01/23/17 08:00 02/06/17 08:59 01/24/17 08:21 20 MG Fluoxetine HCl (Prozac Cap) 10 mg DAILY PO 01/23/17 08:00 02/22/17 08:59 01/24/17 08:19 10 MG Sucralfate (Carafate Tab) 1 gm ACHS PO 01/22/17 16:30 02/21/17 16:29 01/24/17 11:09 1 GM Miscellaneous (Iv Fluids Completed) 1 ea PRN PRN N/A 01/22/17 11:30 01/22/18 11:29 Ketorolac Tromethamine (Toradol Inj) 15 mg Q6H PRN IV 01/22/17 16:00 01/27/17 15:59 01/24/17 08:51 15 MG Prochlorperazine Edisylate 10 mg/ Syringe 10 ml @ 5 mls/min Q8H PRN IV 01/22/17 19:00 02/21/17 18:59 01/24/17 11:48 5 MLS/MIN Dicyclomine HCl (Bentyl Tab) 20 mg BID PRN PO 01/23/17 14:15 02/22/17 14:14 01/24/17 11:10 20 MG Pantoprazole Sodium (Protonix Tab) 40 mg QAM PO 01/24/17 08:00 02/23/17 07:59 01/24/17 08:18 40 MG Objective Vital Signs Date Time Temp Pulse Resp B/P (MAP) Pulse Ox O2 Delivery O2 Flow Rate FiO2 01/24/17 09:15 Room Air 01/24/17 07:14 36.9 67 16 107/72 (84) 100 Room Air 01/23/17 23:59 Room Air 01/23/17 23:57 37.0 79 16 120/84 (96) 94 Room Air 01/23/17 16:00 Room Air 01/23/17 14:07 37.0 87 16 106/71 (83) 99 Room Air Physical Exam General Appearance: WD/WN, no apparent distress, + thin Eyes: normal inspection, PERRL, EOMI Neck: supple, no JVD, trachea midline Respiratory/Chest: normal breath sounds, no respiratory distress, no accessory muscle use Cardiovascular: regular rate, rhythm, no gallop, no murmur Abdomen: normal bowel sounds, soft, + tenderness (epigastric) Extremities: normal inspection, no pedal edema, no calf tenderness Neurologic/Psych: alert, normal mood/affect, oriented x 3 Skin: normal color, warm/dry, no rash Laboratory Results Last 24 Hours Test 01/24/17 05:19 Sodium Level 139 mmol/L Potassium Level 3.1 mmol/L Chloride Level 105 mmol/L Carbon Dioxide Level 27 mmol/L Anion Gap 7.0 mmol/L Blood Urea Nitrogen 3 mg/dl Creatinine 0.49 mg/dl Est Creatinine Clear Calc Drug Dose 151.1 ml/min Estimated GFR () > 150.0 Estimated GFR (Non- 137.3 BUN/Creatinine Ratio 5.3 Random Glucose 65 mg/dl Calcium Level 8.6 mg/dl Total Bilirubin 1.2 mg/dl Direct Bilirubin 0.7 mg/dl Aspartate Amino Transf (AST/SGOT) 114 U/L Alanine Aminotransferase (ALT/SGPT) 104 U/L Alkaline Phosphatase 260 U/L Total Protein 5.7 gm/dl Albumin 2.7 gm/dl Assessment and Plan Patient is a 21 year old female w hx of pancreatitis, ETOH and marijuana abuses , who presented w ongoing epigastric area abd pain, increased Tbili though transaminases are better compared to previous outpt values. Lipase normal. CT abd/pelvis w/o liver, pancreas abnormalities, no biliary ductal dilation. EGD performed on 01/23 unremarkable, bx pending. Her LFTs are slowly trending down. She started having N/V this AM, still c/o epigastric area abd pain. Plans - CL diet. - Protonix 40mg IV daily - Bentyl 20mg BID prn abd pain. - Monitor LFTs; ETOH abstinence advised. Consider case management involvement for substance abuse counseling resources. - If abd pain persist, will plan for EUS +/- gastric emptying study to r/o gastroparesis in outpt setting - Will sign off, pls call if new questions/concerns arise. I have seen, examined and agree with the plan as outlined by NISHA Walker as above. -exam reveals soft abd
--- NOTE | 2017-01-24 14:28 | Progress Note ---
Internal Med Progress Note Date of Service: Jan 24, 2017. Provider Documentation: SUBJECTIVE: The patient was seen and examined S/P EGD-Unremarkable Nausea with vomiting this morning Not been able to keep anything down OBJECTIVE: Vital Signs-as noted below Exam: General-no distress at rest Eyes-normal ENT-Normal Neck-supple Lungs-clear to auscultate bilaterally Heart-Regular,no murmur appreciated Abdomen-Soft,minimal tenderness in epigastrium,bowel sound present Extremities-No edema Neuro-AAOx3 Lab data as noted below. ASSESSMENT & PLAN: INTRACTABLE NAUSEA, VOMITING, EPIGASTRIC PAIN TRANSAMINITIS, HX ALCOHOLIC HEPATITIS - patient presenting with intractable nausea, vomiting, and epigastric pain x 5 days; -work up in the ED showing transaminitis (which patient has had in the past), CT abd/pelvis unremarkable - has history of alcoholic hepatitis - however reports no alcohol use in the past 3 weeks; -LFTs are improving and Hepatitis Screen were negative before -has been NPO ,IVF and Symptomatic treatment -MRCP::1. No biliary ductal dilation or focal filling defects identified. 2. Pancreatic duct not well seen. No focal pancreatic ductal dilation identified. Appreciate GI input S/P -negative EGD Continue PPI OP EUS Continues to have Nausea and Vomiting Continue clear for now H/O Alcohol abuse - UDS + for marijuana - would consider cannabis hyperemesis however patient reports only one use -Social service for discharge instruction MOOD DISORDER - continue home meds -no acute issue DVT PROPHYLAXIS - SCDs DISPO -Likely home in a day or two Vital Signs: Date Time Temp Pulse Resp B/P (MAP) Pulse Ox O2 Delivery O2 Flow Rate FiO2 01/24/17 09:15 Room Air 01/24/17 07:14 36.9 67 16 107/72 (84) 100 Room Air 01/23/17 23:59 Room Air 01/23/17 23:57 37.0 79 16 120/84 (96) 94 Room Air 01/23/17 16:00 Room Air Lab Results: Results Past 24 Hours Test 01/24/17 05:19 Range/Units Sodium Level 139 136-145 mmol/L Potassium Level 3.1 3.5-5.1 mmol/L Chloride Level 105 98-107 mmol/L Carbon Dioxide Level 27 21-32 mmol/L Anion Gap 7.0 3-11 mmol/L Blood Urea Nitrogen 3 7-18 mg/dl Creatinine 0.49 0.60-1.20 mg/dl Est Creatinine Clear Calc Drug Dose 151.1 ml/min Estimated GFR () > 150.0 Estimated GFR (Non- 137.3 BUN/Creatinine Ratio 5.3 10-20 Random Glucose 65 70-99 mg/dl Calcium Level 8.6 8.5-10.1 mg/dl Total Bilirubin 1.2 0.2-1 mg/dl Direct Bilirubin 0.7 0-0.2 mg/dl Aspartate Amino Transf (AST/SGOT) 114 15-37 U/L Alanine Aminotransferase (ALT/SGPT) 104 12-78 U/L Alkaline Phosphatase 260 45-117 U/L Total Protein 5.7 6.4-8.2 gm/dl Albumin 2.7 3.4-5.0 gm/dl
[2017-01-24 15:55] VITALS: BP 123/81; PULSE 48; TEMP 36.9; O2SAT 100
[2017-01-24 23:40] VITALS: BP 121/82; PULSE 92; TEMP 37.1; O2SAT 92
[2017-01-25] MEDS: SUCRALFATE 1 GM TAB PO SCH ×2 (06:09→11:32)
[2017-01-25 07:19] VITALS: BP 105/71; PULSE 78; TEMP 36.8; O2SAT 100
[2017-01-25] MEDS: SODIUM CHLORIDE 0.9% 1000ML 1,000 ML IV SCH (07:34)
[2017-01-25] MEDS: AMPHETAMINE ASP/SULF/DEXTRAMPH 20 MG TAB PO SCH (07:36)
[2017-01-25] MEDS: FLUOXETINE HCL 10 MG CAP PO SCH (07:36)
[2017-01-25] MEDS: PANTOprazole SOD 40 MG TAB PO SCH (07:36)
--- NOTE | 2017-01-25 13:46 | Progress Note ---
Internal Med Progress Note Date of Service: Jan 25, 2017. Provider Documentation: SUBJECTIVE: The patient was seen and examined S/P EGD-Unremarkable Nausea with vomiting -improved Tolerating regular diet OBJECTIVE: Vital Signs-as noted below Exam: General-no distress at rest Eyes-normal ENT-Normal Neck-supple Lungs-clear to auscultate bilaterally Heart-Regular,no murmur appreciated Abdomen-Soft,benign,no tenderness in epigastrium Extremities-No edema Neuro-AAOx3 Lab data as noted below. ASSESSMENT & PLAN: INTRACTABLE NAUSEA, VOMITING, EPIGASTRIC PAIN TRANSAMINITIS, HX ALCOHOLIC HEPATITIS - patient presenting with intractable nausea, vomiting, and epigastric pain x 5 days; -work up in the ED showing transaminitis (which patient has had in the past), CT abd/pelvis unremarkable - has history of alcoholic hepatitis - however reports no alcohol use in the past 3 weeks; -LFTs are improving and Hepatitis Screen were negative before -has been NPO ,IVF and Symptomatic treatment -MRCP::1. No biliary ductal dilation or focal filling defects identified. 2. Pancreatic duct not well seen. No focal pancreatic ductal dilation identified. Appreciate GI input S/P -negative EGD Continue PPI OP EUS as per GI Tolerating regular diet Will discharge home H/O Alcohol abuse - UDS + for marijuana - would consider cannabis hyperemesis however patient reports only one use -Social service for discharge instruction -OP AA follow up MOOD DISORDER - continue home meds -no acute issue DVT PROPHYLAXIS - SCDs DISPO -discharge home today Vital Signs: Date Time Temp Pulse Resp B/P (MAP) Pulse Ox O2 Delivery O2 Flow Rate FiO2 01/25/17 08:00 Room Air 01/25/17 07:19 36.8 78 16 105/71 (82) 100 Room Air 01/25/17 00:00 Room Air 01/24/17 23:40 37.1 92 18 121/82 (95) 92 Room Air 01/24/17 16:00 Room Air 01/24/17 15:55 36.9 48 18 123/81 (95) 100 Room Air
[2017-01-25] MEDS ORDERED: BNT20 PO (13:49)
--- NOTE | 2017-01-25 13:53 | Discharge Instructions ---
Discharge Instructions Date of Service Jan 25, 2017. Admission Reason for Admission: Intractable Nausea And Vomiting Discharge Discharge Diagnosis / Problem: Nausea and Vomiting,Epigastric pain Discharge Goals Goal(s): Prevent Disease Progression Activity Recommendations Activity Limitations: resume your previous activity . Instructions / Follow-Up Instructions / Follow-Up Dr Chávez on 01/29/17 at 9:45AM.Have regular follow up with AA group.GI will arrange for EUS as an OP . Current Hospital Diet Patient's current hospital diet: Regular Diet Discharge Diet Recommended Diet: Regular Diet Procedures Procedures Performed: EGD with biopsy Pending Studies Studies pending at discharge: no Medical Emergencies . Who to Call and When: Medical Emergencies: If at any time you feel your situation is an emergency, please call 911 immediately. . Non-Emergent Contact Non-Emergency issues call your: Primary Care Provider . Past History Medical & Surgical History: (1) Epigastric abdominal pain (2) Vomiting (3) Alcoholic hepatitis (4) Mood disorder . "Provider Documentation" section prepared by Rama Griffiths. . VTE Core Measure Inpt VTE Proph given/why not?: SCD's
[2017-01-25 13:59] VITALS: BP 105/71; PULSE 78; TEMP 36.8; O2SAT 100
--- NOTE | 2017-01-25 18:28 | Discharge Summary ---
Discharge Summary Date of Service Jan 25, 2017. Discharge Summary Admission Date: Jan 22, 2017 at 11:10 Discharge Date: Jan 25, 2017 Discharge Disposition: Home Principal Diagnosis: Nausea and Vomiting,Epigastric pain Secondary Diagnoses/Problems: Please see H&P and Hospital Progress note Procedures: EGD Consultations: GI Medication Reconciliation New Medications: Dicyclomine HCl (Dicyclomine HCl) 20 Mg Tab 20 MG PO BID PRN for abd pain for 30 Days, #30 TAB Continued Medications: Amphetamine-Dextroamphetamine 20MG (Adderall 20MG) 1 Tab Tab 1 TAB PO DAILY for 30 Days, #30 TAB Fluoxetine (Prozac) 10 Mg Cap 10 MG PO DAILY, CAP Hydroxyzine Hcl (Atarax) 50 Mg Tab 50 MG PO Q6H PRN for Anxiety, TAB Ondansetron Hcl (Zofran) 4 Mg Tab 4 MG PO Q8H PRN for Nausea, TAB Pantoprazole (Protonix) 40 Mg Tab 40 MG PO DAILY for Documentation for 30 Days, #30 TAB Promethazine (Phenergan Suppository) 25 Mg Supp 25 MG ME Q6H PRN for Nausea, #10 SUPP Promethazine Hcl (Phenergan) 25 Mg Tab 25 MG PO Q6H PRN for Nausea, #15 TAB Sucralfate (Carafate) 1 Gm Tab 1 TAB PO ACHS for 30 Days, TAB 1 Refill Admission Information HPI (per Admitting provider): 21 year old female who presents to the ER with abdominal pain, nausea, and vomiting. Patient reports chronic epigastric abdominal pain for the past 6 months however symptoms acutely worsened 5 days ago. She has been diagnosed with alcoholic hepatitis and does admit that typically her symptoms would flare up after drinking. She was seen by GI as an outpatient and is scheduled for an EGG/EUS next week. Patient reports she has not drank any alcohol for the past 3 weeks. She reports that five days ago she drank a lot of coffee and "junk food" . Since then, she reports sever stabbing epigastric pain with radiation to the left. She also has had several episodes of vomiting and is unable to keep anything down. She used Zofran and Phenergan without relief. She also smoked marijuana once to help with the pain and nausea. She denies hematemesis and coffee ground emesis. She reports one episode of diarrhea. She denies BRBPR and dark tarry stools. She denies fever and chills. No chest pain or shortness of breath. She denies lightheadedness, dizziness, diaphoresis, and syncopal events. In the ED, she is found to have a transaminitis (which she has had in the past). Other labs are unremarkable. CT abd/pelvis is negative for acute findings. She was treated with IVF, IV Zofran, IV Reglan, IV Benadryl, IV Zantac , and IV morphine. She continues to have nausea and was unable to keep down water and crackers. Past Medical/Surgical History Medical Problems: (1) Alcoholic hepatitis Status: Chronic (2) Mood disorder Status: Chronic Family History Hypertension Social History Smoking Status: Current Every Day Smoker Alcohol Use: history of heavy alochol use, patient reports no alochol in the past 3 weeks Drug Use: marijuana Multi-Drug Resistant Organisms History of MDRO: No Allergies Coded Allergies: No Known Allergies (Unverified , 01/22/17) Home Medications Scheduled Amphetamine-Dextroamphetamine 20MG (Adderall 20MG), 1 TAB PO DAILY Fluoxetine (Prozac), 10 MG PO DAILY Pantoprazole (Protonix), 40 MG PO DAILY Sucralfate (Carafate), 1 TAB PO ACHS Scheduled PRN Hydroxyzine Hcl (Atarax), 50 MG PO Q6H PRN for Anxiety Ondansetron Hcl (Zofran), 4 MG PO Q8H PRN for Nausea Promethazine (Phenergan Suppository), 25 MG ME Q6H PRN for Nausea Promethazine Hcl (Phenergan), 25 MG PO Q6H PRN for Nausea Review of Systems ROS per HPI, all other systems reviewed and negative Physical Ex - H&P Physical Exam Vital Signs Date Time Temp Pulse Resp B/P (MAP) Pulse Ox O2 Delivery O2 Flow Rate FiO2 01/22/17 11:21 Room Air 01/22/17 11:00 128/94 Room Air 01/22/17 10:04 80 16 128/94 Room Air 01/22/17 09:44 86 16 109/68 100 Room Air 01/22/17 09:22 109/68 98 01/22/17 08:37 98 16 121/88 100 Room Air 01/22/17 07:41 83 136/95 99 Room Air 01/22/17 07:14 80 16 143/107 100 Room Air 01/22/17 06:29 88 18 134/104 100 86 134/96 100 134/84 01/22/17 06:26 103 01/22/17 06:05 96 Room Air 01/22/17 05:46 37.3 87 18 145/99 97 Room Air General Appearance: no apparent distress Head: normocephalic, atraumatic Eyes: normal inspection, sclerae normal ENT: hearing grossly normal Neck: supple, no JVD Respiratory/Chest: lungs clear, normal breath sounds, no respiratory distress Cardiovascular: regular rate, rhythm, no edema, normal peripheral pulses Abdomen/GI: normal bowel sounds, soft, + tenderness (mild, epigastric) Extremities/Musculoskelatal: normal inspection, no calf tenderness Neurologic/Psych: no motor/sensory deficits, alert, normal mood/affect, oriented x 3 Skin: normal color, warm/dry Diagnostics - H&P Diagnostics Laboratory Results Results Past 24 Hours Test 01/22/17 06:05 01/22/17 07:15 01/22/17 11:23 Range/Units White Blood Count 7.94 4.8-10.8 K/uL Red Blood Count 5.09 4.2-5.4 M/uL Hemoglobin 13.4 12.0-16.0 g/dL Hematocrit 40.3 37-47 % Mean Corpuscular Volume 79.2 80-100 fL Mean Corpuscular Hemoglobin 26.3 25-34 pg Mean Corpuscular Hemoglobin Concent 33.3 32-36 g/dl Platelet Count 356 130-400 K/uL Mean Platelet Volume 9.3 7.4-10.4 fL Neutrophils (%) (Auto) 77.6 % Lymphocytes (%) (Auto) 15.1 % Monocytes (%) (Auto) 6.7 % Eosinophils (%) (Auto) 0.0 % Basophils (%) (Auto) 0.3 % Neutrophils # (Auto) 6.17 1.4-6.5 K/uL Lymphocytes # (Auto) 1.20 1.2-3.4 K/uL Monocytes # (Auto) 0.53 0.11-0.59 K/uL Eosinophils # (Auto) 0.00 0-0.5 K/uL Basophils # (Auto) 0.02 0-0.2 K/uL RDW Standard Deviation 52.3 36.4-46.3 fL RDW Coefficient of Variation 18.3 11.5-14.5 % Immature Granulocyte % (Auto) 0.3 % Immature Granulocyte # (Auto) 0.02 0.00-0.02 K/uL Prothrombin Time 12.1 9.0-12.0 SECONDS Prothromb Time International Ratio 1.1 0.9-1.1 Activated Partial Thromboplast Time 27.7 21.0-31.0 SECONDS Partial Thromboplastin Ratio 1.1 Sodium Level 135 136-145 mmol/L Potassium Level 3.6 3.5-5.1 mmol/L Chloride Level 98 98-107 mmol/L Carbon Dioxide Level 24 21-32 mmol/L Anion Gap 13.0 3-11 mmol/L Blood Urea Nitrogen 13 7-18 mg/dl Creatinine 0.82 0.60-1.20 mg/dl Est Creatinine Clear Calc Drug Dose 90.3 ml/min Estimated GFR () 116.9 Estimated GFR (Non- 100.9 BUN/Creatinine Ratio 15.9 10-20 Random Glucose 69 70-99 mg/dl Calcium Level 9.8 8.5-10.1 mg/dl Total Bilirubin 2.0 0.2-1 mg/dl Direct Bilirubin 1.1 0-0.2 mg/dl Aspartate Amino Transf (AST/SGOT) 123 15-37 U/L Alanine Aminotransferase (ALT/SGPT) 116 12-78 U/L Alkaline Phosphatase 401 45-117 U/L Total Protein 8.1 6.4-8.2 gm/dl Albumin 3.6 3.4-5.0 gm/dl Lipase 45 73-393 U/L Human Chorionic Gonadotropin, Qual NEG NEG Urine Opiates Screen NEG NEG Urine Methadone, Qualitative NEG NEG Urine Barbiturates NEG NEG Urine Phencyclidine (PCP) Level NEG NEG Ur Amphetamine/Methamphetamine POS NEG MDMA (Ecstasy) Screen NEG NEG Urine Benzodiazepines Screen NEG NEG Urine Cocaine Metabolite NEG NEG Urine Marijuana (THC) POS NEG Diagnostic Radiology CT ABD/PELVIS IMPRESSION: There are no acute infectious or inflammatory findings in the abdomen or pelvis. Impression - H&P Impression Assessment and Plan INTRACTABLE NAUSEA, VOMITING, EPIGASTRIC PAIN TRANSAMINITIS, HX ALCOHOLIC HEPATITIS - admit to med/surg - patient presenting with intractable nausea, vomiting, and epigastric pain x 5 days; work up in the ED showing transaminitis (which patient has had in the past ), CT abd/pelvis unremarkable - patient with history of alcoholic hepatitis - however reports no alcohol use in the past 3 weeks; will check ETOH level - UDS + for marijuana - would consider cannabis hyperemesis however patient reports only one use - ? need for MRCP - noted normal lipase and no CBD on CT - defer to GI - treat conservatively with NPO, IVF, IV PPI, PRN antiemetics - case discussed with NISHA Cochran MOOD DISORDER - continue home meds DVT PROPHYLAXIS - SCDs DISPO - The patient will be placed as observation status for now until further work up is complete. Attending addendum: Agree with the above H&P; please refer to above for more details. Patient is a 21 yo female who presented to the ER for complaints of intractable N/V that has been ongoing for at least 1 week. She reports ingestion of anything , including water, induces vomiting. She states she has been unable to keep anything down for the last week and that she has not been urinating much either. The emesis is usually yellow/green bilious but a few days ago she notes it appeared like coffee grounds, and yesterday she saw a few streaks of blood as well. She has some discomfort in the epigastric area. Cardiac: RR, S1 and S2 auscultated Respiratory: CTA B/L GI: soft, NTND, +BS; subjective discomfort in the epigastric Intractable Nausea/Vomiting: -patient with recurrent ER visits for same complaint, with some associated epipastic pain -CT abd pelvis do not show evidence of pancreatitis, lipase negative despite patient having a past history of pancreatitis -continue with PPI -clear liquids -GI consultation; patient is scheduled for outpatient EGD -patient denies any alcohol use for over 3 weeks although she has a history of alcohol abuse Elevated LFT's: -previously elevated following alcohol use; patient denies any recent use Advanced Directives Existing Living Will: No Existing Power of Consumer Marketing Analyst: No VTE Prophylaxis VTE Risk Assessment Done? Y/N: Yes Risk Level: Low Physical Exam (per Admitting): General Appearance: no apparent distress Head: normocephalic, atraumatic Eyes: normal inspection, sclerae normal ENT: hearing grossly normal Neck: supple, no JVD Respiratory/Chest: lungs clear, normal breath sounds, no respiratory distress Cardiovascular: regular rate, rhythm, no edema, normal peripheral pulses Abdomen/GI: normal bowel sounds, soft, + tenderness (mild, epigastric) Extremities/Musculoskelatal: normal inspection, no calf tenderness Neurologic/Psych: no motor/sensory deficits, alert, normal mood/affect, oriented x 3 Skin: normal color, warm/dry Hospital Course INTRACTABLE NAUSEA, VOMITING, EPIGASTRIC PAIN TRANSAMINITIS, HX ALCOHOLIC HEPATITIS - patient presenting with intractable nausea, vomiting, and epigastric pain x 5 days; -work up in the ED showing transaminitis (which patient has had in the past), CT abd/pelvis unremarkable - has history of alcoholic hepatitis - however reports no alcohol use in the past 3 weeks; -LFTs are improving and Hepatitis Screen were negative before -has been NPO ,IVF and Symptomatic treatment -MRCP::1. No biliary ductal dilation or focal filling defects identified. 2. Pancreatic duct not well seen. No focal pancreatic ductal dilation identified. Appreciate GI input S/P -negative EGD Continue PPI OP EUS as per GI Tolerating regular diet Will discharge home H/O Alcohol abuse - UDS + for marijuana - would consider cannabis hyperemesis however patient reports only one use -Social service for discharge instruction -OP AA follow up MOOD DISORDER - continue home meds -no acute issue DVT PROPHYLAXIS - SCDs DISPO -discharge home today Total time spent on discharge = 35 minutes This includes examination of the patient, discharge planning, medication reconciliation, and communication with other providers. Discharge Instructions Date of Service Jan 25, 2017. Admission Reason for Admission: Intractable Nausea And Vomiting Discharge Discharge Diagnosis / Problem: Nausea and Vomiting,Epigastric pain Discharge Goals Goal(s): Prevent Disease Progression Activity Recommendations Activity Limitations: resume your previous activity . Instructions / Follow-Up Instructions / Follow-Up Dr Chávez on 01/29/17 at 9:45AM.Have regular follow up with AA group.GI will arrange for EUS as an OP . Current Hospital Diet Patient's current hospital diet: Regular Diet Discharge Diet Recommended Diet: Regular Diet Procedures Procedures Performed: EGD with biopsy Pending Studies Studies pending at discharge: no Medical Emergencies . Who to Call and When: Medical Emergencies: If at any time you feel your situation is an emergency, please call 911 immediately. . Non-Emergent Contact Non-Emergency issues call your: Primary Care Provider . Past History Medical & Surgical History: (1) Epigastric abdominal pain (2) Vomiting (3) Alcoholic hepatitis (4) Mood disorder . "Provider Documentation" section prepared by Rama Griffiths. . VTE Core Measure Inpt VTE Proph given/why not?: SCD's <Electronically signed by Rama Griffiths M.D.> Signed: 01/25/17 2164 Additional Copies To Winston Rod M.D. (MEDICAL)
== END 2017-01-25 16:48 | disposition home or self-care (01) ==
LOC: EDBD 05:37 → C.EDA 05:37 → C.4E 11:10 → ENRESERV 11:29
PROVIDERS: ADMIT Internal Medicine; ATTEND Internal Medicine
DX: R11.2 Nausea with vomiting, unspecified (principal); R10.13 Epigastric pain; R79.89 Other specified abnormal findings of blood chemistry; K70.10 Alcoholic hepatitis without ascites; K29.50 Unspecified chronic gastritis without bleeding; F17.200 Nicotine dependence, unspecified, uncomplicated; F12.10 Cannabis abuse, uncomplicated; F10.10 Alcohol abuse, uncomplicated; F39 Unspecified mood [affective] disorder; Z87.11 Personal history of peptic ulcer disease; Z82.49 Family history of ischemic heart disease and other diseases of the circulatory system

== ENCOUNTER 2017-06-07 17:03 | Inpatient (IN) | payer OTHER ==
[~2017-06-07] VITALS: Ht 170.2 cm; Wt 53.4 kg
[~2017-06-07 17:03] MED LIST changes: -ACET-1256 PO; +AMPH20TA2 PO; +BNT20 PO; -DEXT1TAB15 PO; +HYDR-3126 PO; -HYDR25CA PO; +ONDA4TAB65 PO; -PANT40TA PO; -RANI150T3 PO; +SUCR1TAB29 PO
[2017-06-07] MEDS ORDERED: SODIUM CHLORIDE 0.9% 1000ML 1,000 ML IV STA ×2 (17:22→23:54)
[2017-06-07] MEDS ORDERED: ONDANSETRON INJ 2 MG/ML 2 ML VIAL IV STA ×2 (17:22→19:21)
[2017-06-07] MEDS ORDERED: PANT40TA2 PO (17:34)
--- NOTE | 2017-06-07 17:37 | EMERGENCY ROOM VISIT NOTE ---
History Report prepared by Vita: Warner Patterson Under the Supervision of: Dr. Ashwin Boyer D.O. First contact with patient: 17:06 Chief Complaint: OVERDOSE (INTENTIONAL) Stated Complaint: OVERDOSE History of Present Illness The patient is a 22 year old female who presents to the Emergency Room after an intentional overdose on Fluoxetine occurring prior to arrival. The patient states that she had a fight with her mother around an hour ago and states that her mother accused her of something that she did not do. She states that she wanted to leave and was very upset about this. The patient reports that she wanted to hurt herself, and she voiced this to her mother. She states that she took more fluoxetine than usual afterwards, and she states that she drank some alcohol earlier in the day as well. She reports that she did not take any extra Adderall. The patient denies any Motrin usage today. She states that she is currently having some nausea and abdominal pain. She states that she has a history of pancreatitis due to drinking alcohol, and she states that she drinks every other day. The patient has no surgical history, and her last period was two months ago. The patient states that she does not smoke cigarettes, and she does not use any other drugs. Source of History: patient Onset: prior to arrival Position: other (global) Quality: other (overdose) Associated Symptoms: + nausea, + abdominal pain Review of Systems See HPI for pertinent positives & negatives. A total of 10 systems reviewed and were otherwise negative. Past Medical & Surgical Medical Problems: (1) Alcoholic hepatitis (2) Mood disorder Family History Hypertension Social History Smoking Status: Current Every Day Smoker Alcohol Use: occasionally Drug Use: none Marital Status: single Occupation Status: employed, [employer] student Current/Historical Medications Scheduled Amphetamine-Dextroamphetamine 20MG (Adderall 20MG), 1 TAB PO DAILY Fluoxetine (Prozac), 10 MG PO DAILY Pantoprazole (Pantoprazole Sodium), 40 MG PO TID Sucralfate (Carafate), 1 TAB PO ACHS Scheduled PRN Dicyclomine HCl (Dicyclomine HCl), 20 MG PO BID PRN for abd pain Hydroxyzine Hcl (Atarax), 50 MG PO Q6H PRN for Anxiety Allergies Coded Allergies: No Known Allergies (Unverified , 06/07/17) Physical Exam Vital Signs Date Time Temp Pulse Resp B/P (MAP) Pulse Ox O2 Delivery O2 Flow Rate FiO2 06/08/17 05:21 112 18 134/96 99 Room Air 06/08/17 02:00 99 19 124/88 97 06/08/17 01:30 101 27 98 06/08/17 01:00 121 23 131/85 97 06/08/17 00:30 97 23 97 06/08/17 00:00 106 22 135/82 97 06/07/17 23:30 114 19 95 06/07/17 23:00 111 15 126/90 97 06/07/17 22:31 111 06/07/17 22:08 108 20 128/85 95 Room Air 06/07/17 21:03 108 14 127/85 96 Room Air 06/07/17 20:03 119 15 108/85 97 Room Air 06/07/17 19:49 115 22 120/83 97 Room Air 06/07/17 19:02 114 16 123/82 96 Room Air 06/07/17 18:10 123 06/07/17 17:42 98 Room Air 06/07/17 17:03 36.8 119 13 126/76 98 Room Air Physical Exam GENERAL: Patient is awake, alert, very guarded appearing, and odor of alcohol is noted. EYES: The conjunctivae are clear. The pupils are round and reactive. EARS, NOSE, MOUTH AND THROAT: The nose is without any evidence of any deformity. Mucous membranes are moist tongue is midline NECK: The neck is nontender and supple. RESPIRATORY: Normal respiratory effort is noted there is no evidence of wheezing rhonchi or rales CARDIOVASCULAR: Tachycardic but regular rhythm. No definite murmur was noted to auscultation. GASTROINTESTINAL: The abdomen is soft. Bowel sounds are present in all quadrants. Abdomen is nontender MUSCULOSKELETAL/EXTREMITIES: There is no evidence of gross deformity full range of motion is noted in the hips and shoulders SKIN: There is no obvious evidence of any rash. There are no petechiae, pallor or cyanosis noted. NEUROLOGIC: Patient is awake alert and oriented x3 strength is symmetric patellar reflexes are 2+ bilaterally PSYCH: Affect was very flat. Appears very depressed. Currently admitting to earlier suicidal ideations after an argument with her mother. Very vague and will not elaborate on the plan. Makes poor eye contact. Medical Decision & Procedures Laboratory Results 06/07/17 17:49 Red Blood Count 4.09, Mean Corpuscular Volume 95.4, Mean Corpuscular Hemoglobin 31.8, Mean Corpuscular Hemoglobin Concent 33.3, Mean Platelet Volume 8.7, Neutrophils (%) (Auto) 53.9, Lymphocytes (%) (Auto) 38.9, Monocytes (%) (Auto) 6.6, Eosinophils (%) (Auto) 0.2, Basophils (%) (Auto) 0.2, Neutrophils # (Auto) 2.52, Lymphocytes # (Auto) 1.82, Monocytes # (Auto) 0.31, Eosinophils # (Auto) 0.01, Basophils # (Auto) 0.01 06/07/17 17:49 Test 06/07/17 17:28 06/07/17 17:49 Urine Color YELLOW Urine Appearance CLOUDY (CLEAR) Urine pH 7.0 (4.5-7.5) Urine Specific [place] 1.017 (1.000-1.030) Urine Protein NEG (NEG) Urine Glucose (UA) NEG (NEG) Urine Ketones NEG (NEG) Urine Occult Blood NEG (NEG) Urine Nitrite NEG (NEG) Urine Bilirubin NEG (NEG) Urine Urobilinogen NEG (NEG) Urine Leukocyte Esterase NEG (NEG) Urine WBC (Auto) 1-5 /hpf (0-5) Urine RBC (Auto) 0-4 /hpf (0-4) Urine Hyaline Casts (Auto) 1-5 /lpf (0-5) Urine Epithelial Cells (Auto) >30 /lpf (0-5) Urine Bacteria (Auto) NEG (NEG) Urine Opiates Screen NEG (NEG) Urine Methadone, Qualitative NEG (NEG) Urine Barbiturates NEG (NEG) Urine Phencyclidine (PCP) Level NEG (NEG) Ur Amphetamine/Methamphetamine NEG (NEG) MDMA (Ecstasy) Screen NEG (NEG) Urine Benzodiazepines Screen NEG (NEG) Urine Cocaine Metabolite NEG (NEG) Urine Marijuana (THC) NEG (NEG) White Blood Count 4.68 K/uL (4.8-10.8) Red Blood Count 4.09 M/uL (4.2-5.4) Hemoglobin 13.0 g/dL (12.0-16.0) Hematocrit 39.0 % (37-47) Mean Corpuscular Volume 95.4 fL (80-100) Mean Corpuscular Hemoglobin 31.8 pg (25-34) Mean Corpuscular Hemoglobin Concent 33.3 g/dl (32-36) Platelet Count 288 K/uL (130-400) Mean Platelet Volume 8.7 fL (7.4-10.4) Neutrophils (%) (Auto) 53.9 % Lymphocytes (%) (Auto) 38.9 % Monocytes (%) (Auto) 6.6 % Eosinophils (%) (Auto) 0.2 % Basophils (%) (Auto) 0.2 % Neutrophils # (Auto) 2.52 K/uL (1.4-6.5) Lymphocytes # (Auto) 1.82 K/uL (1.2-3.4) Monocytes # (Auto) 0.31 K/uL (0.11-0.59) Eosinophils # (Auto) 0.01 K/uL (0-0.5) Basophils # (Auto) 0.01 K/uL (0-0.2) RDW Standard Deviation 57.6 fL (36.4-46.3) RDW Coefficient of Variation 16.7 % (11.5-14.5) Immature Granulocyte % (Auto) 0.2 % Immature Granulocyte # (Auto) 0.01 K/uL (0.00-0.02) Prothrombin Time 10.8 SECONDS (9.0-12.0) Prothromb Time International Ratio 1.0 (0.9-1.1) Activated Partial Thromboplast Time 24.6 SECONDS (21.0-31.0) Partial Thromboplastin Ratio 0.9 Anion Gap 11.0 mmol/L (3-11) Est Creatinine Clear Calc Drug Dose 109.6 ml/min Estimated GFR () 142.6 Estimated GFR (Non- 123.0 BUN/Creatinine Ratio 16.2 (10-20) Osmolality 377 mOsm/kg (280-300) Calcium Level 9.4 mg/dl (8.5-10.1) Magnesium Level 2.1 mg/dl (1.8-2.4) Total Bilirubin 0.5 mg/dl (0.2-1) Direct Bilirubin 0.4 mg/dl (0-0.2) Aspartate Amino Transf (AST/SGOT) 173 U/L (15-37) Alanine Aminotransferase (ALT/SGPT) 76 U/L (12-78) Alkaline Phosphatase 642 U/L (45-117) Total Creatine Kinase 44 U/L (26-192) Troponin I < 0.015 ng/ml (0-0.045) Total Protein 7.5 gm/dl (6.4-8.2) Albumin 3.4 gm/dl (3.4-5.0) Lipase 78 U/L (73-393) Human Chorionic Gonadotropin, Qual NEG (NEG) Salicylates Level < 1.7 mg/dl (2.8-20) Acetaminophen Level < 2 ug/ml (10-30) Ethyl Alcohol mg/dL 253.4 mg/dl (0-3) Laboratory results per my review. Medications Administered Medications (Trade) Dose Ordered Sig/Luis Eduardo Route Start Time Stop Time Status Last Admin Dose Admin Sodium Chloride 1,000 ml @ 999 mls/hr Q1H1M STAT IV 06/07/17 17:22 06/07/17 18:22 DC 06/07/17 18:10 999 MLS/HR Ondansetron HCl (Zofran Inj) 4 mg NOW STAT IV 06/07/17 17:22 06/07/17 17:23 DC 06/07/17 18:10 4 MG Ondansetron HCl (Zofran Inj) 4 mg NOW STAT IV 06/07/17 19:21 06/07/17 19:23 DC 06/07/17 20:16 4 MG Sodium Chloride 1,000 ml @ 999 mls/hr Q1H1M STAT IV 06/07/17 23:54 06/08/17 00:54 DC 06/08/17 00:05 999 MLS/HR Metoclopramide HCl (Reglan Inj) 5 mg NOW STAT IV 06/07/17 23:54 06/07/17 23:57 DC 06/08/17 00:05 5 MG Diphenhydramine HCl (Benadryl Inj) 12.5 mg NOW STAT IV 06/07/17 23:54 06/07/17 23:57 DC 06/08/17 00:05 12.5 MG Famotidine (Pepcid 20mg Iv Push) 20 mg ONE STAT IV 06/07/17 23:54 06/07/17 23:57 DC 06/08/17 00:05 20 MG Ondansetron HCl (Zofran Inj) 4 mg NOW STAT IV 06/08/17 05:30 06/08/17 05:31 DC 06/08/17 05:46 4 MG ECG Indication: toxicologic Rate (beats per minute): 120 Rhythm: sinus tachycardia Findings: no ectopy, other (T wave flattening) Comparison ECG Date: no prior available Change: EKG has been interpreted by me. ED Course 1705: The patient was evaluated in room B9. A complete history and physical examination were performed. 172: Zofran 4mg IV, NSS 1,000 ml @ 999 mls/hr IV 1907: I reevaluated the patient, and I updated her on the results and the treatment plan. 1920: Zofran 4mg IV 2219: The patient was signed out to Dr. Burgess at the change of shift. Medical Decision Differential diagnosis: Etiologies such as mood disorder, infection, hypoglycemia, electrolyte abnormalities, cardiac sources, intracerebral event, toxicologic, neurologic, as well as others were entertained. Measured Serum Osmolality is 377. Calculated osmolality is 353-366. The patient does not have a significant anion gap. The patient is a 22-year-old female who presented to the emergency department for an evaluation of mental health problems. The patient has significant alcohol abuse history. The patient presented to the emergency department by ambulance accompanied by her mother. The patient has been having suicidal ideation. She had significant alcohol use today. The patient was medically cleared with the exception of her on-call level was very high. I discussed the patient's laboratory results with her. She was treated with IV fluids and IV antiemetics. I also discussed her findings with her mother. Her mother filled out a 302 petition and I reviewed this with the mental health case checker. At this time the patient still will require some observation until she is less clinically intoxicated in the 302 petition can be reevaluated. The patient was signed out to the evening physician at change of shift. Please see his note for continuation of care. Medication Reconcilliation Current Medication List: was personally reviewed by me Blood Pressure Screening Patient's blood pressure: Normal blood pressure Impression Primary Impression: Alcohol intoxication Additional Impressions: Depression Anxiety Suicidal ideation Scribe Attestation The scribe's documentation has been prepared under my direction and personally reviewed by me in its entirety. I confirm that the note above accurately reflects all work, treatment, procedures, and medical decision making performed by me. Departure Information Dispostion Still a Patient Referrals Winston Rod M.D. (MEDICAL) (PCP) Patient Instructions My [facility] Problem Qualifiers Primary Impression: Alcohol intoxication Complication of substance-induced condition: uncomplicated Qualified Codes: F10.920 - Alcohol use, unspecified with intoxication, uncomplicated Additional Impressions: Depression Depression Type: unspecified Qualified Codes: F32.9 - Major depressive disorder, single episode, unspecified
[2017-06-07 18:07] LABS: BASO % 0.2 %; BASO ABS # 0.01 K/uL (0-0.2); EOS % 0.2 %; EOS ABS # 0.01 K/uL (0-0.5); IG# 0.01 K/uL (0.00-0.02); LYMPH % 38.9 %; LYMPH ABS # 1.82 K/uL (1.2-3.4); MEAN CELL VOLUME 95.4 fL (80-100); MEAN CORPUSCULAR HEMOGLOBIN 31.8 pg (25-34); MEAN CORPUSCULAR HGB CONC 33.3 g/dl (32-36); MEAN PLATELET VOLUME 8.7 fL (7.4-10.4); MONO % 6.6 %; MONO ABS # 0.31 K/uL (0.11-0.59); NEUT % 53.9 %; NEUT ABS # 2.52 K/uL (1.4-6.5); PLATELET COUNT 288 K/uL (130-400); RED CELL DISTRIBUTION WIDTH CV 16.7 % (11.5-14.5); RED CELL DISTRIBUTION WIDTH SD 57.6 fL (36.4-46.3); WHITE BLOOD COUNT 4.68 K/uL (4.8-10.8)
[2017-06-07 18:18] LABS: PTT PATIENT 24.6 SECONDS (21.0-31.0)
[2017-06-07 18:32] LABS: ALBUMIN 3.4 gm/dl (3.4-5.0); ALT/SGPT 76 U/L (12-78); BLOOD UREA NITROGEN 11 mg/dl (7-18); CALCIUM 9.4 mg/dl (8.5-10.1); CARBON DIOXIDE 27 mmol/L (21-32); CREATININE 0.67 mg/dl (0.60-1.20); GLUCOSE 101 mg/dl (70-99); LIPASE 78 U/L (73-393); POTASSIUM 3.1 mmol/L (3.5-5.1); SODIUM 144 mmol/L (136-145)
[2017-06-07 18:35] LABS: ALKALINE PHOSPHATASE 642 U/L (45-117); AST/SGOT 173 U/L (15-37); TOTAL PROTEIN 7.5 gm/dl (6.4-8.2)
--- NOTE | 2017-06-07 21:52 | EMERGENCY ROOM VISIT NOTE ---
ED Visit Note First contact with patient: 21:42 The patient was taken in signout from Dr. Boyer at the change of shift. Please see that note for details. The patient was pending clearance of her intoxication and psychiatric evaluation. The patient's intoxication cleared. She did have some vomiting. She was complaining of upper abdominal pain and noted a history of pancreatitis. Her lipase was unremarkable on initial screen. She was given IV Reglan, IV Benadryl, normal saline hydration and had a CT scan performed. Given IV Pepcid. She did not have any peritoneal findings but was quite tender in the upper abdomen. Imaging did not reveal any significant abnormalities. The patient was currently being evaluated by mental health and the details are still in progress. Her case was signed out to Dr. Rothman at the change of shift.
[2017-06-07] MEDS ORDERED: DiphenhydrAMINE HCL 50 MG/ML VIAL IV STA (23:54)
[2017-06-07] MEDS ORDERED: FAMOTIDINE 20MG/5ML IV PUSH IV STA (23:54)
[2017-06-07] MEDS ORDERED: METOCLOPRAMIDE HCL INJ 5 MG/ML 2 ML VIAL IV STA (23:54)
[2017-06-08] VITALS (7 sets, daily range): BP systolic 118–133; BP diastolic 84–91; PULSE 88–105; TEMP 36.7–36.9; O2SAT 98; BMI 18.5
[2017-06-08] MEDS ORDERED: OPTIRAY 320 IV PRN
[2017-06-08] MEDS ORDERED: ONDANSETRON INJ 2 MG/ML 2 ML VIAL IV STA (05:30)
--- NOTE | 2017-06-08 05:56 | EMERGENCY ROOM VISIT NOTE ---
ED Visit Note First contact with patient: 05:30 This case was signed out to me at change of shift. She has been accepted on . She complained on nausea and was given another dose of zofran.
[2017-06-08] MEDS ORDERED: NURSING VERBAL MED ORDER ONE (06:00)
[2017-06-08] MEDS ORDERED: ALUMINUM/MAGNESIUM SUSP 30 ML UDC PO PRN (06:30)
[2017-06-08] MEDS ORDERED: ACETAMINOPHEN 325 MG TAB PO PRN (06:30)
[2017-06-08] MEDS ORDERED: SODIUM CHLORIDE 0.65% NA SOLN 45 ML (OCEAN) PRN (06:30)
[2017-06-08] MEDS ORDERED: BISMUTH SUBSALICYLATE PER ML OMNICELL CHARGE PO PRN (06:30)
[2017-06-08] MEDS ORDERED: MAGNESIUM HYDROXIDE SUSP 30 ML UDC PO PRN (06:30)
--- NOTE | 2017-06-08 07:34 | DIAGNOSTIC IMAGING REPORT ---
CT SCAN OF THE ABDOMEN AND PELVIS WITH IV CONTRAST CLINICAL HISTORY: Upper abdominal pain. Intoxication. Reported history of pancreatitis. COMPARISON STUDY: Abdominal CT dated 01/22/2017. TECHNIQUE: Following the IV administration of 93 cc of Optiray 320, CT scan of the abdomen and pelvis is performed from the lung bases to the proximal femora. Images are reviewed in the axial, sagittal, and coronal planes. IV contrast was administered without complication. A dose lowering technique was utilized adhering to the principles of ALARA. CT DOSE: 254.81 mGy.cm FINDINGS: Lung bases: The heart is normal in size and without pericardial effusion. The lung bases are clear. Liver: The contrast-enhanced liver is normal in size, contour, and attenuation. There is no intrahepatic biliary ductal dilatation. The hepatic veins and portal veins are patent. Gallbladder: Unremarkable. Spleen: Normal in size and attenuation. Pancreas: The pancreas is atrophic for age. The gland enhances homogeneously. No peripancreatic fluid is identified. There is no CT evidence of acute pancreatitis. Adrenal glands: Unremarkable. Kidneys: The contrast enhanced kidneys are normal in size and without hydronephrosis. The kidneys enhance symmetrically. Abdominal vasculature: The abdominal aorta is normal in course and caliber. Bowel: The small bowel and colon are normal in course and caliber. The appendix is normal as visualized. Peritoneum: There is no intraperitoneal free air or abdominal ascites. There is a small fat-containing umbilical hernia. Lymphadenopathy: None. Pelvic viscera: The bladder, uterus, and adnexa are normal as visualized. Small ovarian follicles are observed. Trace free fluid in the cul-de-sac is likely within physiologic limits. Skeletal structures: No lytic or blastic lesions are seen. IMPRESSION: 1. There are no acute infectious or inflammatory findings in the abdomen or pelvis. Specifically, there is no CT evidence of acute pancreatitis as clinically. Correlation with serum amylase/lipase levels is recommended. 2. There is trace free fluid in the cul-de-sac, likely within physiologic limits. Electronically signed by: James Lowery M.D. 06/08/2017 7:33 AM Dictated Date/Time: 06/08/2017 7:28 AM
[2017-06-08] MEDS ORDERED: GABAPENTIN 800 MG TAB PO SCH (08:45)
[2017-06-08] MEDS ORDERED: LORAZEPAM 1 MG TAB PO PRN (08:45)
[2017-06-08] MEDS ORDERED: GABAPENTIN 800 MG TAB PO ONE (09:45)
[2017-06-08] MEDS: MULTIVITAMIN TAB PO SCH (09:46)
[2017-06-08] MEDS: LORAZEPAM 1 MG TAB PO PRN (09:46)
[2017-06-08] MEDS: THIAMINE HCL 100 MG TAB PO SCH (09:46)
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
[2017-06-08] MEDS ORDERED: PROMETHAZINE HCL 25 MG TAB PO PRN (16:00)
[2017-06-08] MEDS ORDERED: PROMETHAZINE HCL 25 MG SUPP PR PRN (16:00)
[2017-06-08] MEDS: GABAPENTIN 400MG Q6H DOSE PO SCH ×2 (16:48→21:37)
[2017-06-08] MEDS: SUCRALFATE 1 GM TAB PO SCH ×2 (16:50→21:37)
[2017-06-08] MEDS ORDERED: INFLUENZA VIRUS QUAD VACCINE 0.5 ML SYR IM. ONE (18:00)
[2017-06-08] MEDS ORDERED: INFLUENZA ADMINISTRATION CHARGE ONE (18:00)
[2017-06-08] MEDS: DICYCLOMINE HCL 10 MG CAP PO SCH (21:37)
[2017-06-08] MEDS: hydrOXYzine HCL 25 MG TAB PO PRN (22:13)
[2017-06-09] MEDS: GABAPENTIN 400MG Q8H DOSE PO SCH ×3 (06:16→21:25)
[2017-06-09 06:57] VITALS: BP_SYST 123; BP_SYST 130; BP_DIAS 88; BP_DIAS 92; PULSE 76; PULSE 82; TEMP 36.9
[2017-06-09 06:58] VITALS: BMI 18.5
--- NOTE | 2017-06-09 08:01 | Psychiatric Progress Notes ---
Progress Note Date of Service Jun 09, 2017. Interval History Maricruz Chávez is a 22-year-old female admitted on Jun 08, 2017 at 05:58 who currently lives in [facility] with a family friend. Maricruz Chávez was admitted on a 201 voluntary commitment. Patient is admitted from home . The patient was brought to the ED by the ambulance called by mother after patient had TI of her medication. Chief Complaint "I am shaky today". Subjective Patient was seen & assessed interval progress reviewed with Treatment Team 7.5h + sleep AWSS was 9 yesterday AM to 4 then to 1 last evening, she was given the Recovery protocol book and is open to the idea of rehab services. SHe reports she went to [facility] in 2016 and only stayed breifly because she started having hallucinosis of withdrawal and left AMA early in the stay She is not having hallucinations today (saw and felt colors and shapes yesterday AM prior to medications for withdrawal) she is taking minimal po Feels good to not feel so nauseated anymore when sitting but still turned off by food with some nausea this AM at breakfast, she is having very infrequent bowel movements (e.g. [id number]) but not feeling overtly constipated at this time. SHe did go to community meeting and rated mood as a 5/10 and noted she was anxious Per SW most recent BF of 2 year is pending discharge from correction soon, she knows the relationship is not good for her, and he has history with heroin. THis is a major stressor. She shares with this provider how she feels that setting boundaries is complicated and hard for her. SHe is open to taking a medication for her anxiety noting that she drinks when she is socially anxious or having VAHE worry. She was at a 9/10 this AM prior to community meeting for anxiety, now with this provider she is at a 6/10 with some panic-like sensations feeling restless, short of breath and physically shaky. She denies other s/sx of withdrawal at this time. Discussed lexapro and r/b/se/a to include but not limited to the black box warning, SOLOMON, GI upset and sexual SE. She agrees to take this med. Discussed naltrexone (she was prescribed before but did not take) and she is ambivalent and we agreed to keep that conversation on the table for the future. SHe feels safe in the hospital but is worried at how easily overwhelmed she was this AM and is aware that she is at high risk for relapse to alcohol and disinhibited behavior if she were not in a controlled environment. Review of Systems Denies physical concerns other than noted above. Sleep Information Total Hours of Sleep: 7.50 Meal Information Percent of Breakfast Consumed: 0 Percent of Lunch Consumed: 5 Percent of Dinner Consumed: 0 Mental Status Exam During interview pt is: alert and oriented Appearance: other (dressed in stylish clothing with significant attnetion to hair and makeup today) Eye contact is: fair (she is drowsy and nods off at times, wakens to verbal stimuli) Motor behavior is: steady gait & station, no abnormal motor movements (she is shaky mildly with extended hands, and restless shifting in seat anxiously) Speech: normal in rate, rhythm & volume Affect: blunted, anxious Mood is: depressed Thought process: goal directed, linear, logical, clear, coherent Thought content: reality based without delusions Suicidal thought are: denied (but unable to contract for safety outside of the hospital feeling she would be at risk if not supported in a controlled environment) Homicidal thoughts are: denied Hallucinations: denies auditory, denies visual Cognition: memory grossly intact Intelligence estimated to be: average Insight: fair Judgement: fair Impression Patient is a 22yo Single black female with long standing h/o anxiety and depression and what sounds like underlying PTSD symptoms and alcohol abuse r/o dependence with impending withdrawal with hallucinosis this morning and chronic abdominal pain likely related to the same. Patient reports inconsistence with psychotropic medications and possibly nausea related to prozac. She is unsafe due to risk of complicated alcohol withdrawal and ongoing suicidal thinking with plan and recent acts of furtherance prior to admit. Inpatient care is the least restrictive and most appropriate setting for care at this time. She seems to have some grogginess and cognitive cloudiness cannot rule out gabapentin or prn ativan as contributing but AWSS score controlled from 9 to a 1 at this time. Will monitor closely. Plan (1) Mood disorder 06/08 - Safety - inpatient care is least restrictive care and most appropriate setting for care at this time - depression with concurrent alcohol induced mood disorder contributing - hold on discussion of alternative antidepressants until she is more wakeful, strongly considering remeron or alternative SSRI with caution due to question of nausea - recommend therapy, grant milieu, and supportive therapy - recommend outpatient psychiatry and therapy once stabilized and discharged 06/09 - inpatient remains least restrictive setting as she is in pending withdrawal on controlled taper protocol, as well as ongoing high anxiety and we have not yet assisted with coping skills or modified her risk with aftercare and rehab services or helping with relationship boundary setting or family meeting. - continue wtih therapy, [facility] - start lexapro 10mg po qday for anxiety and mood, consented today see subjective of note (2) Anxiety 06/08 - see depression as above, remeron would be off label but may help anxiety, SSRI would be preferable for PTSD and VAHE and panic if she would tolerate it, will wait to discuss it with her until she is more wakeful 06/09 - see depression as above (3) Alcohol abuse 06/08 and 06/09 AWSS [facility] withdrawal protocol gabapentin loading and ativan prn Recommend rehab services which today she told manager social work she B12, folate testing, and supplementation (elevated RDW) as well as MVI intoxication is most likely cause of elevated serum osmolality elevated ALT/AST in a 2:1 ratio with normal lipase likely alcohol induced hepatitis (given negative MRCP, EGD 01/2017 for similar symptoms and no new findings or s/sx) will monitor (4) Epigastric abdominal pain 06/08 and 06/09 intoxication is most likely cause of elevated serum osmolality elevated ALT/AST in a 2:1 ratio with normal lipase likely alcohol induced hepatitis (given negative MRCP, EGD 01/2017 for similar symptoms and no new findings or s/sx) will monitor Resume prior regimen (recommended at discharge by GI at her 01/2017 admit): bentyl 20mg po bid zofran 4mg q4h prn nausea promethazine 25mg po q6h prn or suppository sulcralfate 1 ac and 1 hs Thyroid -recheck of TSH WNL, Elevated RDW - unclear as B12, and folate WNL, not anemic, no urgent f/u needed but should be followed longer term by PCM Discharge / Aftercare Planning Primary Care Physician: Name: None Therapist: Name: None Customer Marketing Manager: Name: None Visit Code E&M Code: 82455 Therapy Code: 06130 OK toward alcohol use, she is contemplation/action phase 20min Inventory Assets Strengths: voluntary for care at this time willingness to take medications stated willingness to consider alcohol rehab services Needs: safe environment alcohol withdrawal and rehab services mood and anxiety treatment Risk Factors Assessment : No /single/: Yes Health problems: Yes Mental Health Diagnoses: Yes Substance use disorders: Yes Previous attempt: Yes Previous attempt; didn't tell: Yes Family history of suicide: No Previous psychiatric stay: No Hopelessness: Yes Smoker: Yes Protective Factors Assessment Quaker beliefs: No : No Responsible for young children: No Employed: No Stable relationships: No Supportive family: No Good rapport with provider: No Absence of risk factors above: No Data Vital Signs Last 24 Hrs: Date Time Temp Pulse Resp B/P (MAP) Pulse Ox O2 Delivery O2 Flow Rate FiO2 06/09/17 06:57 36.9 76 16 130/92 82 123/88 06/08/17 20:37 36.7 98 16 130/90 06/08/17 15:54 36.9 88 16 126/89 06/08/17 12:43 36.8 89 16 118/84 06/08/17 10:37 36.8 97 16 125/87 06/08/17 10:22 36.9 105 18 133/91 06/08/17 09:32 36.9 105 18 133/91 Meds Administered Last 24 Hrs: Meds Administered (Past 24Hrs) Medications (Trade) Dose Ordered Sig/Luis Eduardo Route Start Time Stop Time Status Last Admin Dose Admin Sodium Chloride 1,000 ml @ 999 mls/hr Q1H1M STAT IV 06/07/17 17:22 06/07/17 18:22 DC 06/07/17 18:10 999 MLS/HR Ondansetron HCl (Zofran Inj) 4 mg NOW STAT IV 06/07/17 17:22 06/07/17 17:23 DC 06/07/17 18:10 4 MG Ondansetron HCl (Zofran Inj) 4 mg NOW STAT IV 06/07/17 19:21 06/07/17 19:23 DC 06/07/17 20:16 4 MG Sodium Chloride 1,000 ml @ 999 mls/hr Q1H1M STAT IV 06/07/17 23:54 06/08/17 00:54 DC 06/08/17 00:05 999 MLS/HR Metoclopramide HCl (Reglan Inj) 5 mg NOW STAT IV 06/07/17 23:54 06/07/17 23:57 DC 06/08/17 00:05 5 MG Diphenhydramine HCl (Benadryl Inj) 12.5 mg NOW STAT IV 06/07/17 23:54 06/07/17 23:57 DC 06/08/17 00:05 12.5 MG Famotidine (Pepcid 20mg Iv Push) 20 mg ONE STAT IV 06/07/17 23:54 06/07/17 23:57 DC 06/08/17 00:05 20 MG Ondansetron HCl (Zofran Inj) 4 mg NOW STAT IV 06/08/17 05:30 06/08/17 05:31 DC 06/08/17 05:46 4 MG Hydroxyzine HCl (Vistaril Tab) 50 mg HSZ PRN PO 06/08/17 06:30 07/08/17 06:29 06/08/17 22:13 50 MG Thiamine HCl (Vitamin B-1 Tab) 100 mg Q24H PO 06/08/17 09:00 07/08/17 08:59 06/08/17 09:46 100 MG Lorazepam (Ativan Tab) PRN Dosing -Active Protocol UD PRN PO 06/08/17 08:45 07/08/17 08:44 06/08/17 09:46 2 MG Multivitamins (Multivitamin Tab) 1 tab QAM PO 06/08/17 09:00 07/08/17 08:59 06/08/17 09:46 1 TAB Gabapentin (Neurontin Tab) 800 mg NOW ONCE PO 06/08/17 09:45 06/08/17 09:46 DC 06/08/17 09:47 800 MG Gabapentin (Neurontin Cap) 400 mg Q6H PO 06/08/17 16:00 06/08/17 22:01 DC 06/08/17 21:37 400 MG Gabapentin (Neurontin Cap) 400 mg Q8H PO 06/09/17 06:00 06/09/17 22:01 06/09/17 06:16 400 MG Dicyclomine HCl (Bentyl Cap) 20 mg BID PO 06/08/17 22:00 07/08/17 21:59 06/08/17 21:37 20 MG Sucralfate (Carafate Tab) 1 gm QID PO 06/08/17 17:00 07/08/17 16:59 06/08/17 21:37 1 GM Influenza Virus Vaccine Quadrival (Flucelvax Quad Vaccine) 0.5 ml ONCE ONCE IM. 06/08/17 18:00 06/08/17 18:01 DC 06/08/17 18:45 0.5 ML Lab Results Last 24 Hrs: Last 24 Hours Test 06/08/17 09:09 Vitamin B12 Level 482 pg/mL Folate 6.97 ng/mL Thyroid Stimulating Hormone (TSH) 0.595 uIu/ml
[2017-06-09 09:15] VITALS: BP 113/81; PULSE 114; TEMP 36.9
[2017-06-09] MEDS: DICYCLOMINE HCL 10 MG CAP PO SCH ×2 (09:35→21:25)
[2017-06-09] MEDS: SUCRALFATE 1 GM TAB PO SCH ×4 (09:36→21:25)
[2017-06-09] MEDS: MULTIVITAMIN TAB PO SCH (09:36)
[2017-06-09] MEDS: THIAMINE HCL 100 MG TAB PO SCH (09:36)
[2017-06-09] MEDS ORDERED: ESCITALOPRAM OXALATE 10 MG TAB PO ONE (10:37)
[2017-06-09] MEDS: hydrOXYzine HCL 25 MG TAB PO PRN ×2 (11:50→21:34)
[2017-06-09 12:08] VITALS: BP 123/87; PULSE 76; TEMP 36.8
[2017-06-09 14:54] VITALS: Ht 170.2 cm; Wt 53.4 kg
[2017-06-09 16:28] VITALS: BP 125/84; PULSE 89; TEMP 37
[2017-06-09 20:16] VITALS: BP 129/94; PULSE 84; TEMP 37
[2017-06-10] VITALS (7 sets, daily range): BP systolic 114–136; BP diastolic 83–97; PULSE 71–102; TEMP 36.6–37.1
[2017-06-10] MEDS: ESCITALOPRAM OXALATE 10 MG TAB PO SCH (08:18)
[2017-06-10] MEDS: DICYCLOMINE HCL 10 MG CAP PO SCH ×2 (08:18→21:20)
[2017-06-10] MEDS: THIAMINE HCL 100 MG TAB PO SCH (08:18)
[2017-06-10] MEDS: MULTIVITAMIN TAB PO SCH (08:18)
[2017-06-10] MEDS: SUCRALFATE 1 GM TAB PO SCH ×4 (08:18→21:20)
[2017-06-10] MEDS: GABAPENTIN 400MG Q12H DOSE PO SCH ×2 (10:22→21:20)
[2017-06-10] MEDS: LORAZEPAM 1 MG TAB PO PRN ×2 (11:22→23:43)
--- NOTE | 2017-06-10 11:27 | Psychiatric Progress Notes ---
Progress Note Date of Service Jun 10, 2017. Interval History Maricruz Chávez is a 22-year-old female admitted on Jun 08, 2017 at 05:58 who currently lives in [facility] with a family friend. Maricruz Chávez was admitted on a 201 voluntary commitment. Patient is admitted from home . The patient was brought to the ED by the ambulance called by mother after patient had TI of her medication. Chief Complaint "Okay, I still have anxiety". Subjective Patient was seen & assessed interval progress reviewed with Treatment Team. Staff report her nausea has improved, but she still has poor po intake. She is attending groups and is denying SI. She talked about her ex-boyfriend who is getting out of detention soon, and is worried that he will harass her. Today she was seen with Patt Capps PA-C, with her permission. She states she is improved from admission, but is still very anxious. She reports VH last evening for about an hour, saw a cell phone and movement in the wall, which she thinks was due to alcohol withdrawal. She reports this has happened before, 1-2 times when she was withdrawing from alcohol. She also reports shakiness, decreased appetite , refusing most meals. Even when feeling well, she only eats two meals a day. She denies SI, and is going to groups, which she thinks have been helpful. She has set daily goals and thinks this helps her not to get overwhelmed with worrying about the future. Her goals are to be in a safe environment when she leaves, and to find positive, constructive ways to deal with her problems. She also wants to address her "ex-boyfriend situation." She denies side effects to medications. She has gotten multiple doses of hydroxyzine, and one dose of lorazepam 2mg on 06/08 for withdrawal. She remains willing for rehab. Sleep Information Total Hours of Sleep: 5.00 Meal Information Percent of Breakfast Consumed: 5 Percent of Lunch Consumed: 15 Percent of Dinner Consumed: 10 Mental Status Exam During interview pt is: alert and oriented, cooperative Appearance: appropriately dressed, appropriately groomed, other (thin, hair and makeup done) Eye contact is: good Motor behavior is: steady gait & station, no abnormal motor movements ( wringing hands) Speech: normal in rate, rhythm & volume Affect: anxious, constricted Mood is: anxious Thought process: goal directed, linear, logical, clear, coherent Thought content: reality based without delusions Suicidal thought are: denied (but unable to contract for safety outside of the hospital feeling she would be at risk if not supported in a controlled environment) Homicidal thoughts are: denied Hallucinations: denies auditory, denies visual Cognition: memory grossly intact, attention grossly intact, language grossly intact Intelligence estimated to be: average Insight: fair Judgement: fair Impression Patient is a 22yo single female with long standing h/o anxiety and depression, likely underlying PTSD symptoms and alcohol abuse r/o dependence, with alcohol withdrawal with hallucinosis. Patient reports inconsistence with psychotropic medications and possibly nausea related to prozac. She is unsafe due to risk of complicated alcohol withdrawal and ongoing suicidal thinking with plan and recent acts of furtherance prior to admit. Inpatient care is the least restrictive and most appropriate setting for care at this time. She is willing for inpatient substance abuse treatment and will pursue county assessment as has no insurance and pursue rehab referrals. She is appropriate for transfer to rehab as soon as a bed can be secured. Plan (1) Mood disorder 06/08 - Safety - inpatient care is least restrictive care and most appropriate setting for care at this time - depression with concurrent alcohol induced mood disorder contributing - hold on discussion of alternative antidepressants until she is more wakeful, strongly considering remeron or alternative SSRI with caution due to question of nausea - recommend therapy, grant milieu, and supportive therapy - recommend outpatient psychiatry and therapy once stabilized and discharged 06/09 - inpatient remains least restrictive setting as she is in pending withdrawal on controlled taper protocol, as well as ongoing high anxiety and we have not yet assisted with coping skills or modified her risk with aftercare and rehab services or helping with relationship boundary setting or family meeting. - continue with therapy, grant milieu and group. - start lexapro 10mg po qday for anxiety and mood, consented today see subjective of note. 06/10 - Continue escitalopram 10mg and groups/therapy. - Continue hydroxyzine prn. (2) Anxiety 06/08 - see depression as above, remeron would be off label but may help anxiety, SSRI would be preferable for PTSD and VAHE and panic if she would tolerate it, will wait to discuss it with her until she is more wakeful 06/09 - see depression as above (3) Alcohol abuse 06/08 and 06/09 AWSS with withdrawal protocol gabapentin loading and ativan prn Recommend rehab services which today she told social work associate she B12, folate testing, and supplementation (elevated RDW) as well as MVI intoxication is most likely cause of elevated serum osmolality elevated ALT/AST in a 2:1 ratio with normal lipase likely alcohol induced hepatitis (given negative MRCP, EGD 01/2017 for similar symptoms and no new findings or s/sx) will monitor 06/10 - Continue AWSS and gabapentin taper. Willing for rehab, will pursue referrals. (4) Epigastric abdominal pain 06/08 and 06/09 intoxication is most likely cause of elevated serum osmolality elevated ALT/AST in a 2:1 ratio with normal lipase likely alcohol induced hepatitis (given negative MRCP, EGD 01/2017 for similar symptoms and no new findings or s/sx) will monitor Resume prior regimen (recommended at discharge by GI at her 01/2017 admit): Bentyl 20mg po bid Zofran 4mg q4h prn nausea promethazine 25mg po q6h prn or suppository sucralfate 1 ac and 1 hs Thyroid -recheck of TSH WNL, Elevated RDW - unclear as B12, and folate WNL, not anemic, no urgent f/u needed but should be followed longer term by PCM Discharge / Aftercare Planning Primary Care Physician: Name: None Therapist: Name: None Material Mixer: Name: None Visit Code E&M Code: 53077 Inventory Assets Strengths: voluntary for care at this time willingness to take medications stated willingness to consider alcohol rehab services Needs: safe environment alcohol withdrawal and rehab services mood and anxiety treatment Risk Factors Assessment : No /single/: Yes Higher / Fall in social status: No Access to guns: No Health problems: Yes Mental Health Diagnoses: Yes Substance use disorders: Yes Previous attempt: Yes Previous attempt; didn't tell: Yes Family history of suicide: No Previous psychiatric stay: No Hopelessness: Yes Smoker: Yes Protective Factors Assessment Temple beliefs: No : No Responsible for young children: No Employed: No Stable relationships: No Supportive family: No Good rapport with provider: No Absence of risk factors above: No Data Vital Signs Last 24 Hrs: Date Time Temp Pulse Resp B/P (MAP) Pulse Ox O2 Delivery O2 Flow Rate FiO2 06/10/17 08:10 36.6 86 14 134/97 06/10/17 06:51 36.7 71 16 136/96 76 130/93 06/09/17 20:16 37.0 84 16 129/94 06/09/17 16:28 37.0 89 16 125/84 06/09/17 12:08 36.8 76 16 123/87 76 Meds Administered Last 24 Hrs: Meds Administered (Past 24Hrs) Medications (Trade) Dose Ordered Sig/Luis Eduardo Route Start Time Stop Time Status Last Admin Dose Admin Gabapentin (Neurontin Cap) 400 mg Q6H PO 06/08/17 16:00 06/08/17 22:01 DC 06/08/17 21:37 400 MG Gabapentin (Neurontin Cap) 400 mg Q8H PO 06/09/17 06:00 06/09/17 22:01 DC 06/09/17 21:25 400 MG Gabapentin (Neurontin Cap) 400 mg Q12H PO 06/10/17 10:00 06/10/17 22:01 06/10/17 10:22 400 MG Dicyclomine HCl (Bentyl Cap) 20 mg BID PO 06/08/17 22:00 07/08/17 21:59 06/10/17 08:18 20 MG Sucralfate (Carafate Tab) 1 gm QID PO 06/08/17 17:00 07/08/17 16:59 06/10/17 08:18 1 GM Influenza Virus Vaccine Quadrival (Flucelvax Quad Vaccine) 0.5 ml ONCE ONCE IM. 06/08/17 18:00 06/08/17 18:01 DC 06/08/17 18:45 0.5 ML Escitalopram Oxalate (Lexapro Tab) 10 mg QAM PO 06/10/17 09:00 07/10/17 08:59 06/10/17 08:18 10 MG Escitalopram Oxalate (Lexapro Tab) 10 mg 1037 ONCE PO 06/09/17 10:37 06/09/17 10:43 DC 06/09/17 11:10 10 MG
[2017-06-10] MEDS: hydrOXYzine HCL 25 MG TAB PO PRN ×2 (21:20→23:42)
[2017-06-11] VITALS (7 sets, daily range): BP systolic 110–125; BP diastolic 76–88; PULSE 72–102; TEMP 36.4–37
[2017-06-11] MEDS: SUCRALFATE 1 GM TAB PO SCH ×4 (08:47→22:17)
[2017-06-11] MEDS: ESCITALOPRAM OXALATE 10 MG TAB PO SCH (08:47)
[2017-06-11] MEDS: DICYCLOMINE HCL 10 MG CAP PO SCH ×2 (08:47→22:17)
[2017-06-11] MEDS: THIAMINE HCL 100 MG TAB PO SCH (08:48)
[2017-06-11] MEDS: LORAZEPAM 1 MG TAB PO PRN ×4 (08:48→19:37)
[2017-06-11] MEDS: MULTIVITAMIN TAB PO SCH (08:48)
--- NOTE | 2017-06-11 15:00 | Psychiatric Progress Notes ---
Progress Note Date of Service Jun 11, 2017. Interval History Maricruz Chávez is a 22-year-old female admitted on Jun 08, 2017 at 05:58 who currently lives in [facility] with a family friend. Maricruz Chávez was admitted on a 201 voluntary commitment. Patient is admitted from home . The patient was brought to the ED by the ambulance called by mother after patient had TI of her medication. Chief Complaint "OK". Subjective Patient was seen & assessed interval progress reviewed with Treatment Team. The patient says overall she feels a little bit improved since the time of admission but remains anxious and with alcohol withdrawal symptoms. She denies any GI symptoms but does have intermittent tremors and is now endorsing visual hallucinations. Last evening, she thought that she saw a cell phone on her lap , reached out to put her finger on it and withdrew her finger seeing the contents of the phone on her finger. Today she is having visual distortions, seeing the flower border on her bedroom wall in 3D, and feeling like carpets are swirling. She denies ever having had DTs in the past. She is asking about her medications, wondering about something for anxiety. She denies any suicidal ideation. She reports poor appetite although was noted to have eaten 50-100% of her meals. She is also struggling to force fluids. She is extremely slender, BMI 18.5, but denies any history of eating disordered behaviors. Her anxiety is high and feels like she is under a lot of stress from multiple reasons. She is not currently in school, has chronic pancreatitis , and has relationship stressors with her mother. Review of Systems Constitutional: + weakness ENT: No hearing loss, No unusual epistaxis, No nasal symptoms, No sore throat, No tinnitus, No dental problems, No trouble swallowing, No problem reported Respiratory: No cough, No sputum, No wheezing, No shortness of breath, No dyspnea on exertion, No dyspnea at rest, No hemoptysis, No problem reported Cardiovascular: + problem reported (dizziness upon standing) Abdomen: + problem reported (poor appetite) Musculoskeletal: No joint pain, No muscle pain, No swelling, No calf pain, No problem reported Neurologic: + problem reported (visual hallucinations in the setting of alcohol withdrawal) Psychiatric: + depression symptoms, + anxiety Sleep Information Total Hours of Sleep: 4.75 Meal Information Percent of Breakfast Consumed: 50 Percent of Lunch Consumed: 100 Percent of Dinner Consumed: 50 Mental Status Exam During interview pt is: alert and oriented, cooperative Appearance: appropriately dressed, appropriately groomed, other (thin, hair and makeup done) Eye contact is: good Motor behavior is: steady gait & station, no abnormal motor movements (mild tremor to outstretched hands) Speech: normal in rate, rhythm & volume Affect: anxious, constricted Mood is: anxious Thought process: goal directed, linear, logical, clear, coherent Thought content: reality based without delusions Suicidal thought are: denied (but unable to contract for safety outside of the hospital feeling she would be at risk if not supported in a controlled environment) Homicidal thoughts are: denied Hallucinations: denies auditory, denies visual Cognition: memory grossly intact, attention grossly intact, language grossly intact Intelligence estimated to be: average Insight: fair Judgement: fair Impression The patient had not been completely honest about her withdrawal symptoms and today reports having visual hallucinations both last evening and today. In view of this will give her a one-time dose of Librium 50 mg so as not to get behind the curve and to prevent seizures. We will continue her on the [facility] as per protocol. She was seen by [facility] who supports referral for inpatient rehabilitation when medically stable. We will continue her current psychiatric medications but consider increasing Lexapro to 15 mg soon as tomorrow to help target mood and anxiety. Plan (1) Mood disorder 06/08 - Safety - inpatient care is least restrictive care and most appropriate setting for care at this time - depression with concurrent alcohol induced mood disorder contributing - hold on discussion of alternative antidepressants until she is more wakeful, strongly considering remeron or alternative SSRI with caution due to question of nausea - recommend therapy, grant milieu, and supportive therapy - recommend outpatient psychiatry and therapy once stabilized and discharged 06/09 - inpatient remains least restrictive setting as she is in pending withdrawal on controlled taper protocol, as well as ongoing high anxiety and we have not yet assisted with coping skills or modified her risk with aftercare and rehab services or helping with relationship boundary setting or family meeting. - continue with therapy, grant milieu and group. - start lexapro 10mg po qday for anxiety and mood, consented today see subjective of note. 06/10 - Continue escitalopram 10mg and groups/therapy. - Continue hydroxyzine prn. 06/11 - Continue current medications but consider increasing Lexapro to 15 mg as soon as tomorrow (2) Anxiety 06/08 - see depression as above, remeron would be off label but may help anxiety, SSRI would be preferable for PTSD and VAHE and panic if she would tolerate it, will wait to discuss it with her until she is more wakeful 06/09 - see depression as above (3) Alcohol abuse 06/08 and 06/09 AWSS with withdrawal protocol gabapentin loading and ativan prn Recommend rehab services which today she told long term care social worker she B12, folate testing, and supplementation (elevated RDW) as well as MVI intoxication is most likely cause of elevated serum osmolality elevated ALT/AST in a 2:1 ratio with normal lipase likely alcohol induced hepatitis (given negative MRCP, EGD 01/2017 for similar symptoms and no new findings or s/sx) will monitor 06/10 - Continue AWSS and gabapentin taper. Willing for rehab, will pursue referrals. 06/11 - Will give one time dose of Librium 50 mg in view of hallucinations. - [facility] has supported inpatient referral and will send information to rehabs when medically stable - Encourage patient to hydrate (4) Epigastric abdominal pain 06/08 and 06/09 intoxication is most likely cause of elevated serum osmolality elevated ALT/AST in a 2:1 ratio with normal lipase likely alcohol induced hepatitis (given negative MRCP, EGD 01/2017 for similar symptoms and no new findings or s/sx) will monitor Resume prior regimen (recommended at discharge by GI at her 01/2017 admit): Bentyl 20mg po bid Zofran 4mg q4h prn nausea promethazine 25mg po q6h prn or suppository sucralfate 1 ac and 1 hs Thyroid -recheck of TSH WNL, Elevated RDW - unclear as B12, and folate WNL, not anemic, no urgent f/u needed but should be followed longer term by PCM Discharge / Aftercare Planning Primary Care Physician: Name: None Therapist: Name: None Police Lieutenant Patrol: Name: None Visit Code E&M Code: 56007 Inventory Assets Strengths: voluntary for care at this time willingness to take medications stated willingness to consider alcohol rehab services Needs: safe environment alcohol withdrawal and rehab services mood and anxiety treatment Risk Factors Assessment : No /single/: Yes Higher / Fall in social status: No Access to guns: No Health problems: Yes Mental Health Diagnoses: Yes Substance use disorders: Yes Previous attempt: Yes Previous attempt; didn't tell: Yes Family history of suicide: No Previous psychiatric stay: No Hopelessness: Yes Smoker: Yes Protective Factors Assessment Anglican beliefs: No : No Responsible for young children: No Employed: No Stable relationships: No Supportive family: No Good rapport with provider: No Absence of risk factors above: No Data Vital Signs Last 24 Hrs: Date Time Temp Pulse Resp B/P (MAP) Pulse Ox O2 Delivery O2 Flow Rate FiO2 06/11/17 13:55 36.4 82 18 116/79 06/11/17 11:10 37.0 80 18 110/76 06/11/17 08:30 37.0 102 18 114/83 06/11/17 06:55 36.7 72 16 125/88 80 115/83 06/10/17 20:48 36.8 87 18 122/88 06/10/17 16:22 36.8 102 16 114/83 Meds Administered Last 24 Hrs: Meds Administered (Past 24Hrs) Medications (Trade) Dose Ordered Sig/Luis Eduardo Route Start Time Stop Time Status Last Admin Dose Admin Gabapentin (Neurontin Cap) 400 mg Q12H PO 06/10/17 10:00 06/10/17 22:01 DC 06/10/17 21:20 400 MG Escitalopram Oxalate (Lexapro Tab) 10 mg QAM PO 06/10/17 09:00 07/10/17 08:59 06/11/17 08:47 10 MG Lab Results Last 24 Hrs: 06/07/17 17:49 Red Blood Count 4.09, Mean Corpuscular Volume 95.4, Mean Corpuscular Hemoglobin 31.8, Mean Corpuscular Hemoglobin Concent 33.3, Mean Platelet Volume 8.7, Neutrophils (%) (Auto) 53.9, Lymphocytes (%) (Auto) 38.9, Monocytes (%) (Auto) 6.6, Eosinophils (%) (Auto) 0.2, Basophils (%) (Auto) 0.2, Neutrophils # (Auto) 2.52, Lymphocytes # (Auto) 1.82, Monocytes # (Auto) 0.31, Eosinophils # (Auto) 0.01, Basophils # (Auto) 0.01 06/07/17 17:49 Test 06/07/17 17:28 06/07/17 17:49 06/08/17 09:09 Urine Color YELLOW Urine Appearance CLOUDY (CLEAR) Urine pH 7.0 (4.5-7.5) Urine Specific [place] 1.017 (1.000-1.030) Urine Protein NEG (NEG) Urine Glucose (UA) NEG (NEG) Urine Ketones NEG (NEG) Urine Occult Blood NEG (NEG) Urine Nitrite NEG (NEG) Urine Bilirubin NEG (NEG) Urine Urobilinogen NEG (NEG) Urine Leukocyte Esterase NEG (NEG) Urine WBC (Auto) 1-5 /hpf (0-5) Urine RBC (Auto) 0-4 /hpf (0-4) Urine Hyaline Casts (Auto) 1-5 /lpf (0-5) Urine Epithelial Cells (Auto) >30 /lpf (0-5) Urine Bacteria (Auto) NEG (NEG) Urine Opiates Screen NEG (NEG) Urine Methadone, Qualitative NEG (NEG) Urine Barbiturates NEG (NEG) Urine Phencyclidine (PCP) Level NEG (NEG) Ur Amphetamine/Methamphetamine NEG (NEG) MDMA (Ecstasy) Screen NEG (NEG) Urine Benzodiazepines Screen NEG (NEG) Urine Cocaine Metabolite NEG (NEG) Urine Marijuana (THC) NEG (NEG) White Blood Count 4.68 K/uL (4.8-10.8) Red Blood Count 4.09 M/uL (4.2-5.4) Hemoglobin 13.0 g/dL (12.0-16.0) Hematocrit 39.0 % (37-47) Mean Corpuscular Volume 95.4 fL (80-100) Mean Corpuscular Hemoglobin 31.8 pg (25-34) Mean Corpuscular Hemoglobin Concent 33.3 g/dl (32-36) Platelet Count 288 K/uL (130-400) Mean Platelet Volume 8.7 fL (7.4-10.4) Neutrophils (%) (Auto) 53.9 % Lymphocytes (%) (Auto) 38.9 % Monocytes (%) (Auto) 6.6 % Eosinophils (%) (Auto) 0.2 % Basophils (%) (Auto) 0.2 % Neutrophils # (Auto) 2.52 K/uL (1.4-6.5) Lymphocytes # (Auto) 1.82 K/uL (1.2-3.4) Monocytes # (Auto) 0.31 K/uL (0.11-0.59) Eosinophils # (Auto) 0.01 K/uL (0-0.5) Basophils # (Auto) 0.01 K/uL (0-0.2) RDW Standard Deviation 57.6 fL (36.4-46.3) RDW Coefficient of Variation 16.7 % (11.5-14.5) Immature Granulocyte % (Auto) 0.2 % Immature Granulocyte # (Auto) 0.01 K/uL (0.00-0.02) Prothrombin Time 10.8 SECONDS (9.0-12.0) Prothromb Time International Ratio 1.0 (0.9-1.1) Activated Partial Thromboplast Time 24.6 SECONDS (21.0-31.0) Partial Thromboplastin Ratio 0.9 Anion Gap 11.0 mmol/L (3-11) Est Creatinine Clear Calc Drug Dose 109.6 ml/min Estimated GFR () 142.6 Estimated GFR (Non- 123.0 BUN/Creatinine Ratio 16.2 (10-20) Osmolality 377 mOsm/kg (280-300) Calcium Level 9.4 mg/dl (8.5-10.1) Magnesium Level 2.1 mg/dl (1.8-2.4) Total Bilirubin 0.5 mg/dl (0.2-1) Direct Bilirubin 0.4 mg/dl (0-0.2) Aspartate Amino Transf (AST/SGOT) 173 U/L (15-37) Alanine Aminotransferase (ALT/SGPT) 76 U/L (12-78) Alkaline Phosphatase 642 U/L (45-117) Total Creatine Kinase 44 U/L (26-192) Troponin I < 0.015 ng/ml (0-0.045) Total Protein 7.5 gm/dl (6.4-8.2) Albumin 3.4 gm/dl (3.4-5.0) Lipase 78 U/L (73-393) Human Chorionic Gonadotropin, Qual NEG (NEG) Salicylates Level < 1.7 mg/dl (2.8-20) Acetaminophen Level < 2 ug/ml (10-30) Ethyl Alcohol mg/dL 253.4 mg/dl (0-3) Vitamin B12 Level 482 pg/mL (211-911) Folate 6.97 ng/mL (>5.38) Thyroid Stimulating Hormone (TSH) 0.595 uIu/ml (0.300-4.500)
[2017-06-11] MEDS ORDERED: CHLORDIAZEPOXIDE 25 MG CAP PO ONE (15:15)
[2017-06-11] MEDS ORDERED: GABAPENTIN 400MG X1 DOSE PO SCH (22:00)
[2017-06-11] MEDS: hydrOXYzine HCL 25 MG TAB PO PRN (22:19)
[2017-06-12 06:54] VITALS: BP_SYST 110; BP_SYST 116; BP_DIAS 74; BP_DIAS 87; PULSE 66; PULSE 76; TEMP 36.5
[2017-06-12 08:36] VITALS: BP 108/73; PULSE 69; TEMP 36.5
[2017-06-12] MEDS: DICYCLOMINE HCL 10 MG CAP PO SCH ×2 (09:50→21:51)
[2017-06-12] MEDS: ESCITALOPRAM OXALATE 10 MG TAB PO SCH (09:51)
[2017-06-12] MEDS: THIAMINE HCL 100 MG TAB PO SCH (09:51)
[2017-06-12] MEDS: SUCRALFATE 1 GM TAB PO SCH ×4 (09:51→21:51)
[2017-06-12] MEDS: MULTIVITAMIN TAB PO SCH (09:51)
--- NOTE | 2017-06-12 12:18 | Psychiatric Progress Notes ---
Progress Note Date of Service Jun 12, 2017. Interval History Maricruz Chávez is a 22-year-old female admitted on Jun 08, 2017 at 05:58 who currently lives in [facility] with a family friend. Maricruz Chávez was admitted on a 201 voluntary commitment. Patient is admitted from home . The patient was brought to the ED by the ambulance called by mother after patient had TI of her medication. Chief Complaint "A little better". Subjective Patient was seen & assessed interval progress reviewed with Treatment Team. The patient is feeling that her alcohol withdrawal symptoms are little better. She is still having some visual hallucinations but fewer than yesterday or the day before. She still feels anxious and tremulous at times. She describes her mood as "normal" and does not have cravings for alcohol today but admits that the cravings were very bad yesterday. She reports good sleep. Her appetite remains a problem and nursing notes that she's lost 5 pounds since admission. She denies any thoughts of suicidality. She remains committed to going to rehabilitation and we discuss the need for her not to be at risk of acute alcohol withdrawal at the time the referral is made. I suggest that we wait another 24 hours and she is in agreement with this. The patient had a meeting with her mother yesterday which was described as difficult. Mother was using vulgar language, calling her names and accusing her of being a liar. Review of Systems Constitutional: No fever, No chills, No sweats, No weight loss, No weakness, No fatigue, No problem reported ENT: No hearing loss, No unusual epistaxis, No nasal symptoms, No sore throat, No tinnitus, No dental problems, No trouble swallowing, No problem reported Respiratory: No cough, No sputum, No wheezing, No shortness of breath, No dyspnea on exertion, No dyspnea at rest, No hemoptysis, No problem reported Cardiovascular: No chest pain, No orthopnea, No PND, No edema, No claudication , No palpitations, No problem reported Abdomen: + problem reported (poor appetite) Musculoskeletal: No joint pain, No muscle pain, No swelling, No calf pain, No problem reported Neurologic: No memory loss, No paralysis, No weakness, No numbness/tingling, No vertigo, No balance problems, No problem reported Psychiatric: + anxiety (visual hallucinations), + problem reported Integumentary: No rash, No itch, No new/changing skin lesions, No color change , No bleeding, No problem reported Sleep Information Total Hours of Sleep: 7.00 Meal Information Percent of Breakfast Consumed: 100 Percent of Lunch Consumed: 0 Percent of Dinner Consumed: 50 Mental Status Exam During interview pt is: alert and oriented, cooperative Appearance: appropriately dressed, appropriately groomed, other (thin, hair and makeup done) Eye contact is: good Motor behavior is: steady gait & station, no abnormal motor movements Speech: normal in rate, rhythm & volume Affect: anxious, constricted Mood is: anxious Thought process: goal directed, linear, logical, clear, coherent Thought content: reality based without delusions Suicidal thought are: denied (but unable to contract for safety outside of the hospital feeling she would be at risk if not supported in a controlled environment) Homicidal thoughts are: denied Hallucinations: denies auditory, denies visual Cognition: memory grossly intact, attention grossly intact, language grossly intact Intelligence estimated to be: average Insight: fair Judgement: fair Impression Still with some hallucinations however improving each day. Has scored on the AWSS protocol twice yesterday, receiving when necessary Ativan. She is not visibly tremulous today, has a full face of makeup on. Her appetite remains a problem, consultation with the dietitian has been placed and will put her on every other day weights. I anticipate we may be able to move forward with referrals to rehabilitation as early as tomorrow. Plan (1) Mood disorder 06/08 - Safety - inpatient care is least restrictive care and most appropriate setting for care at this time - depression with concurrent alcohol induced mood disorder contributing - hold on discussion of alternative antidepressants until she is more wakeful, strongly considering remeron or alternative SSRI with caution due to question of nausea - recommend therapy, grant milieu, and supportive therapy - recommend outpatient psychiatry and therapy once stabilized and discharged 06/09 - inpatient remains least restrictive setting as she is in pending withdrawal on controlled taper protocol, as well as ongoing high anxiety and we have not yet assisted with coping skills or modified her risk with aftercare and rehab services or helping with relationship boundary setting or family meeting. - continue with therapy, grant milieu and group. - start lexapro 10mg po qday for anxiety and mood, consented today see subjective of note. 06/10 - Continue escitalopram 10mg and groups/therapy. - Continue hydroxyzine prn. 06/11 - Continue current medications but consider increasing Lexapro to 15 mg as soon as tomorrow (2) Anxiety 06/08 - see depression as above, remeron would be off label but may help anxiety, SSRI would be preferable for PTSD and VAHE and panic if she would tolerate it, will wait to discuss it with her until she is more wakeful 06/09 - see depression as above (3) Alcohol abuse 06/08 and 06/09 AWSS with withdrawal protocol gabapentin loading and ativan prn Recommend rehab services which today she told health care social worker she B12, folate testing, and supplementation (elevated RDW) as well as MVI intoxication is most likely cause of elevated serum osmolality elevated ALT/AST in a 2:1 ratio with normal lipase likely alcohol induced hepatitis (given negative MRCP, EGD 01/2017 for similar symptoms and no new findings or s/sx) will monitor 06/10 - Continue AWSS and gabapentin taper. Willing for rehab, will pursue referrals. 06/11 - Will give one time dose of Librium 50 mg in view of hallucinations. - [facility] has supported inpatient referral and will send information to rehabs when medically stable - Encourage patient to hydrate (4) Epigastric abdominal pain 06/08 and 06/09 intoxication is most likely cause of elevated serum osmolality elevated ALT/AST in a 2:1 ratio with normal lipase likely alcohol induced hepatitis (given negative MRCP, EGD 01/2017 for similar symptoms and no new findings or s/sx) will monitor Resume prior regimen (recommended at discharge by GI at her 01/2017 admit): Bentyl 20mg po bid Zofran 4mg q4h prn nausea promethazine 25mg po q6h prn or suppository sucralfate 1 ac and 1 hs Thyroid -recheck of TSH WNL, Elevated RDW - unclear as B12, and folate WNL, not anemic, no urgent f/u needed but should be followed longer term by PCM Discharge / Aftercare Planning Primary Care Physician: Name: None Therapist: Name: None Gravity Prospecting Operator Helper: Name: [facility] - [employer] Operator Helper to be assigned after pt completes rehab . Appointment Notes: [address] [facility] [address] [facility] [address] Visit Code E&M Code: 67841 Inventory Assets Strengths: voluntary for care at this time willingness to take medications stated willingness to consider alcohol rehab services Needs: safe environment alcohol withdrawal and rehab services mood and anxiety treatment Risk Factors Assessment : No /single/: Yes Higher / Fall in social status: No Access to guns: No Health problems: Yes Mental Health Diagnoses: Yes Substance use disorders: Yes Previous attempt: Yes Previous attempt; didn't tell: Yes Family history of suicide: No Previous psychiatric stay: No Hopelessness: Yes Smoker: Yes Protective Factors Assessment Uatsdin beliefs: No : No Responsible for young children: No Employed: No Stable relationships: No Supportive family: No Good rapport with provider: No Absence of risk factors above: No Data Vital Signs Last 24 Hrs: Date Time Temp Pulse Resp B/P (MAP) Pulse Ox O2 Delivery O2 Flow Rate FiO2 06/12/17 08:36 36.5 69 16 108/73 06/12/17 06:54 36.5 66 16 110/74 76 116/87 06/11/17 21:39 37.0 80 18 125/82 06/11/17 19:23 36.8 94 18 111/77 06/11/17 16:26 36.5 74 18 120/81 06/11/17 13:55 36.4 82 18 116/79 Meds Administered Last 24 Hrs: Meds Administered (Past 24Hrs) Medications (Trade) Dose Ordered Sig/Luis Eduardo Route Start Time Stop Time Status Last Admin Dose Admin Gabapentin (Neurontin Cap) 400 mg Q24H PO 06/11/17 22:00 06/11/17 22:01 DC 06/11/17 22:17 400 MG Chlordiazepoxide (Librium Cap) 50 mg NOW ONCE PO 06/11/17 15:15 06/11/17 15:16 DC 06/11/17 15:11 50 MG Lab Results Last 24 Hrs: 06/07/17 17:49 Red Blood Count 4.09, Mean Corpuscular Volume 95.4, Mean Corpuscular Hemoglobin 31.8, Mean Corpuscular Hemoglobin Concent 33.3, Mean Platelet Volume 8.7, Neutrophils (%) (Auto) 53.9, Lymphocytes (%) (Auto) 38.9, Monocytes (%) (Auto) 6.6, Eosinophils (%) (Auto) 0.2, Basophils (%) (Auto) 0.2, Neutrophils # (Auto) 2.52, Lymphocytes # (Auto) 1.82, Monocytes # (Auto) 0.31, Eosinophils # (Auto) 0.01, Basophils # (Auto) 0.01 06/07/17 17:49 Test 06/07/17 17:28 06/07/17 17:49 06/08/17 09:09 Urine Color YELLOW Urine Appearance CLOUDY (CLEAR) Urine pH 7.0 (4.5-7.5) Urine Specific [place] 1.017 (1.000-1.030) Urine Protein NEG (NEG) Urine Glucose (UA) NEG (NEG) Urine Ketones NEG (NEG) Urine Occult Blood NEG (NEG) Urine Nitrite NEG (NEG) Urine Bilirubin NEG (NEG) Urine Urobilinogen NEG (NEG) Urine Leukocyte Esterase NEG (NEG) Urine WBC (Auto) 1-5 /hpf (0-5) Urine RBC (Auto) 0-4 /hpf (0-4) Urine Hyaline Casts (Auto) 1-5 /lpf (0-5) Urine Epithelial Cells (Auto) >30 /lpf (0-5) Urine Bacteria (Auto) NEG (NEG) Urine Synthetic Stimulants see note Urine Opiates Screen NEG (NEG) Urine Methadone, Qualitative NEG (NEG) Urine Barbiturates NEG (NEG) Urine Phencyclidine (PCP) Level NEG (NEG) Ur Amphetamine/Methamphetamine NEG (NEG) MDMA (Ecstasy) Screen NEG (NEG) Urine Benzodiazepines Screen NEG (NEG) Urine Cocaine Metabolite NEG (NEG) Cannabinoids Comment see note Urine Synthetic Cannabinoids NEGATIVE (Negative) Ur Synthetic Cannabinoids Confirm (()) Urine Marijuana (THC) NEG (NEG) White Blood Count 4.68 K/uL (4.8-10.8) Red Blood Count 4.09 M/uL (4.2-5.4) Hemoglobin 13.0 g/dL (12.0-16.0) Hematocrit 39.0 % (37-47) Mean Corpuscular Volume 95.4 fL (80-100) Mean Corpuscular Hemoglobin 31.8 pg (25-34) Mean Corpuscular Hemoglobin Concent 33.3 g/dl (32-36) Platelet Count 288 K/uL (130-400) Mean Platelet Volume 8.7 fL (7.4-10.4) Neutrophils (%) (Auto) 53.9 % Lymphocytes (%) (Auto) 38.9 % Monocytes (%) (Auto) 6.6 % Eosinophils (%) (Auto) 0.2 % Basophils (%) (Auto) 0.2 % Neutrophils # (Auto) 2.52 K/uL (1.4-6.5) Lymphocytes # (Auto) 1.82 K/uL (1.2-3.4) Monocytes # (Auto) 0.31 K/uL (0.11-0.59) Eosinophils # (Auto) 0.01 K/uL (0-0.5) Basophils # (Auto) 0.01 K/uL (0-0.2) RDW Standard Deviation 57.6 fL (36.4-46.3) RDW Coefficient of Variation 16.7 % (11.5-14.5) Immature Granulocyte % (Auto) 0.2 % Immature Granulocyte # (Auto) 0.01 K/uL (0.00-0.02) Prothrombin Time 10.8 SECONDS (9.0-12.0) Prothromb Time International Ratio 1.0 (0.9-1.1) Activated Partial Thromboplast Time 24.6 SECONDS (21.0-31.0) Partial Thromboplastin Ratio 0.9 Anion Gap 11.0 mmol/L (3-11) Est Creatinine Clear Calc Drug Dose 109.6 ml/min Estimated GFR () 142.6 Estimated GFR (Non- 123.0 BUN/Creatinine Ratio 16.2 (10-20) Osmolality 377 mOsm/kg (280-300) Calcium Level 9.4 mg/dl (8.5-10.1) Magnesium Level 2.1 mg/dl (1.8-2.4) Total Bilirubin 0.5 mg/dl (0.2-1) Direct Bilirubin 0.4 mg/dl (0-0.2) Aspartate Amino Transf (AST/SGOT) 173 U/L (15-37) Alanine Aminotransferase (ALT/SGPT) 76 U/L (12-78) Alkaline Phosphatase 642 U/L (45-117) Total Creatine Kinase 44 U/L (26-192) Troponin I < 0.015 ng/ml (0-0.045) Total Protein 7.5 gm/dl (6.4-8.2) Albumin 3.4 gm/dl (3.4-5.0) Lipase 78 U/L (73-393) Human Chorionic Gonadotropin, Qual NEG (NEG) Salicylates Level < 1.7 mg/dl (2.8-20) Acetaminophen Level < 2 ug/ml (10-30) Ethyl Alcohol mg/dL 253.4 mg/dl (0-3) Vitamin B12 Level 482 pg/mL (211-911) Folate 6.97 ng/mL (>5.38) Thyroid Stimulating Hormone (TSH) 0.595 uIu/ml (0.300-4.500)
[2017-06-12 12:58] VITALS: BP 117/79; PULSE 76; TEMP 36.8
[2017-06-12 16:59] VITALS: BP 120/80; PULSE 75; TEMP 36.9
[2017-06-12 20:02] VITALS: BP 126/91; PULSE 80; TEMP 36.8
[2017-06-12] MEDS: hydrOXYzine HCL 25 MG TAB PO PRN ×2 (20:07→21:57)
[2017-06-13 06:53] VITALS: BP_SYST 123; BP_SYST 127; BP_DIAS 85; BP_DIAS 87; PULSE 68; PULSE 69; TEMP 36.6
--- NOTE | 2017-06-13 07:46 | Psychiatric Progress Notes ---
Progress Note Date of Service Jun 13, 2017. Interval History Maricruz Chávez is a 22-year-old female admitted on Jun 08, 2017 at 05:58 who currently lives in [facility] with a family friend. Maricruz Chávez was admitted on a 201 voluntary commitment. Patient is admitted from home . The patient was brought to the ED by the ambulance called by mother after patient had TI of her medication. Chief Complaint "Okay". Subjective Patient was seen & assessed interval progress reviewed with Nursing. Staff report she is going to groups and participating, and remains willing for rehab. She was anxious and upset after a phone call from her ex-boyfriend's mother last evening, and stated she only accepted it because she wanted to know if her ex was out of senior living. She also met with staff prior to a planned visit from her mother, stating she was feeling hurt by her mother, didn't feel he had a healthy relationship. Staff reviewed mindfulness and communication techniques with her, and encouraged her to work on positive supports, including engaging with AA and getting a sponsor. She met with the dietitian regarding her low body weight, weight loss, and poor oral intake. She has had a couple episodes of perceptual disturbances, where the wall or carpet looked like it was moving. It lasts minutes and is not distressing, also occurred during a past episode of alcohol withdrawal. She denies any other symptoms of withdrawal and has not scored on AWSS in 2 days. Mood is "anxious," worried about what will happen when she returns to her life. Her ex-boyfriend's mother called her here, which "disturbed me as I never told her where I was," and said she was "in shock" that she even knew she was here. She says she used to "help (the ex-boyfriend's mother) out" so she still calls the patient for help. Although she says she wants to "cut ties," she has not yet told his mother that. She says she doesn't know how to tell her that, and isn't sure if she could have that conversation with her now. She thinks her ex is going to [place] "to stay for a while," and thinks he tried to call her cell phone, as his mother told her that. She is also worried about that her ex will continue to try to contact her, as his mother told her he loves her, and can't wait to see her. She feels "awkward, uncomfortable" about this, as she's already told her ex that she doesn't want to talk to him. She doesn't want any further calls from his mother or from her ex, and will tell nursing staff. Sleep Information Total Hours of Sleep: 6.00 Meal Information Percent of Breakfast Consumed: 100 Percent of Lunch Consumed: 0 Percent of Dinner Consumed: 75 Mental Status Exam During interview pt is: alert and oriented, cooperative Appearance: appropriately dressed, appropriately groomed, other (thin, hair and makeup done, casually dressed and clean clothes) Eye contact is: good Motor behavior is: steady gait & station, no abnormal motor movements Speech: normal in rate, rhythm & volume Affect: mood congruent, anxious Mood is: other ("okay") Thought process: goal directed, linear, logical, clear, coherent Thought content: reality based without delusions Suicidal thought are: denied Homicidal thoughts are: denied Hallucinations: denies auditory, denies visual Cognition: memory grossly intact, attention grossly intact, language grossly intact Intelligence estimated to be: average Insight: fair Judgement: fair Impression Alcohol withdrawal symptoms have resolved, the patient has not triggered the withdrawal protocol or required lorazepam in 2 days. She is psychiatrically and medically stable for transfer to inpatient rehabilitation, and will make referrals today. Although she is stable to go to rehabilitation, she requires continued inpatient hospitalization until such time as she can be transferred there, as she is not appropriate for discharge to the community given the high risk of relapse and decompensation in mood and the risk of severe symptoms returning. Plan (1) Mood disorder 06/08 - Safety - inpatient care is least restrictive care and most appropriate setting for care at this time - depression with concurrent alcohol induced mood disorder contributing - hold on discussion of alternative antidepressants until she is more wakeful, strongly considering remeron or alternative SSRI with caution due to question of nausea - recommend therapy, grant milieu, and supportive therapy - recommend outpatient psychiatry and therapy once stabilized and discharged 06/09 - inpatient remains least restrictive setting as she is in pending withdrawal on controlled taper protocol, as well as ongoing high anxiety and we have not yet assisted with coping skills or modified her risk with aftercare and rehab services or helping with relationship boundary setting or family meeting. - continue with therapy, grant milieu and group. - start lexapro 10mg po qday for anxiety and mood, consented today see subjective of note. 06/10 - Continue escitalopram 10mg and groups/therapy. - Continue hydroxyzine prn. 06/11 - Continue current medications but consider increasing Lexapro to 15 mg as soon as tomorrow 06/02 - Increase escitalopram to 15 mg daily for tomorrow. (2) Anxiety 06/08 - see depression as above, remeron would be off label but may help anxiety, SSRI would be preferable for PTSD and VAHE and panic if she would tolerate it, will wait to discuss it with her until she is more wakeful 06/09 - see depression as above 06/13 - Patient with anxiety about her ex boyfriend's mother contacting her and her ex-boyfriend getting out of group home. He continues to attempt to contact her, although she has asked him not to. She has been given information about the [facility], and again discussed this today. She does not wish to receive phone calls from either of these individuals and is going to inform staff. Encouraged her to consider having staff assist her to contact her ex- boyfriend's mother and inform her that she no longer wishes to speak with her, as she feels distressed by contact with this woman. She is also receiving unwanted contact from her ex-boyfriend, and is fearful of him getting out of group home. Encouraged her to contact the [facility] resource [place] and to utilize staff supports here to process this and to examine her options, stressing that her safety and stability are the primary concerns right now, as she has been continuing contact with the ex-boyfriend's mother out of a sense of obligation to her. (3) Alcohol abuse 06/08 and 06/09 AWSS with withdrawal protocol gabapentin loading and ativan prn Recommend rehab services which today she told social welfare administrator she B12, folate testing, and supplementation (elevated RDW) as well as MVI intoxication is most likely cause of elevated serum osmolality elevated ALT/AST in a 2:1 ratio with normal lipase likely alcohol induced hepatitis (given negative MRCP, EGD 01/2017 for similar symptoms and no new findings or s/sx) will monitor 06/10 - Continue AWSS and gabapentin taper. Willing for rehab, will pursue referrals. 06/11 - Will give one time dose of Librium 50 mg in view of hallucinations. - [facility] has supported inpatient referral and will send information to rehabs when medically stable - Encourage patient to hydrate 06/13 - Has not scored on AWSS or required prn lorazepam in 2 days, so will discontinue it. 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 Educated the patient about this, as she was worried it might indicate schizophrenia, and reassured her that this is not likely the case. - The patient is now medically and psychiatrically stable for referral to inpatient rehabilitation. Ideally she would be transferred directly from the hospital to the rehabilitation facility, and is appropriate to attend rehabilitation soon as a bed can be secured. - Patient has been given information about AA and encouraged to follow up with this after rehabilitation, to obtain a sponsor, and to pursue outpatient substance abuse treatment to ensure ongoing sobriety. (4) Epigastric abdominal pain 06/08 and 06/09 intoxication is most likely cause of elevated serum osmolality elevated ALT/AST in a 2:1 ratio with normal lipase likely alcohol induced hepatitis (given negative MRCP, EGD 01/2017 for similar symptoms and no new findings or s/sx) will monitor Resume prior regimen (recommended at discharge by GI at her 01/2017 admit): Bentyl 20mg po bid Zofran 4mg q4h prn nausea promethazine 25mg po q6h prn or suppository sucralfate 1 ac and 1 hs 06/13 - Met with dietitian, encouraged to work on improving her diet and ensure adequate nutrition. - Recommend ongoing follow-up as an outpatient to rule out eating disorder, due to low body weight. Thyroid -recheck of TSH WNL, Elevated RDW - unclear as B12, and folate WNL, not anemic, no urgent f/u needed but should be followed longer term by PCM Discharge / Aftercare Planning Primary Care Physician: Name: None Therapist: Name: None Sales And Service Technician: Name: [facility] - Sales And Service Technician to be assigned after pt completes rehab . Appointment Notes: [address] [facility] [address] Visit Code E&M Code: 37562 Inventory Assets Strengths: voluntary for care at this time willingness to take medications stated willingness to consider alcohol rehab services Needs: safe environment alcohol withdrawal and rehab services mood and anxiety treatment Risk Factors Assessment : No /single/: Yes Higher / Fall in social status: No Access to guns: No Health problems: Yes Mental Health Diagnoses: Yes Substance use disorders: Yes Previous attempt: Yes Previous attempt; didn't tell: Yes Family history of suicide: No Previous psychiatric stay: No Hopelessness: Yes Smoker: Yes Protective Factors Assessment Faith beliefs: No : No Responsible for young children: No Employed: No Stable relationships: No Supportive family: No Good rapport with provider: No Absence of risk factors above: No Data Vital Signs Last 24 Hrs: Date Time Temp Pulse Resp B/P (MAP) Pulse Ox O2 Delivery O2 Flow Rate FiO2 06/13/17 06:53 36.6 68 16 127/85 69 123/87 06/12/17 20:02 36.8 80 16 126/91 06/12/17 16:59 36.9 75 14 120/80 06/12/17 12:58 36.8 76 16 117/79 06/12/17 08:36 36.5 69 16 108/73 Meds Administered Last 24 Hrs: Meds Administered (Past 24Hrs) Medications (Trade) Dose Ordered Sig/Luis Eduardo Route Start Time Stop Time Status Last Admin Dose Admin Gabapentin (Neurontin Cap) 400 mg Q24H PO 06/11/17 22:00 06/11/17 22:01 DC 06/11/17 22:17 400 MG Chlordiazepoxide (Librium Cap) 50 mg NOW ONCE PO 06/11/17 15:15 06/11/17 15:16 DC 06/11/17 15:11 50 MG
[2017-06-13] MEDS: SUCRALFATE 1 GM TAB PO SCH ×4 (09:23→21:10)
[2017-06-13] MEDS: DICYCLOMINE HCL 10 MG CAP PO SCH ×2 (09:23→21:10)
[2017-06-13] MEDS: MULTIVITAMIN TAB PO SCH (09:24)
[2017-06-13] MEDS: THIAMINE HCL 100 MG TAB PO SCH (09:24)
[2017-06-13] MEDS: ESCITALOPRAM OXALATE 10 MG TAB PO SCH (09:24)
[2017-06-13] MEDS: hydrOXYzine HCL 25 MG TAB PO PRN (21:09)
[2017-06-14 07:00] VITALS: BP_SYST 128; BP_SYST 133; BP_DIAS 82; BP_DIAS 90; PULSE 67; PULSE 71; TEMP 36.4
[2017-06-14] MEDS: MULTIVITAMIN TAB PO SCH (08:53)
[2017-06-14] MEDS: THIAMINE HCL 100 MG TAB PO SCH (08:53)
[2017-06-14] MEDS: SUCRALFATE 1 GM TAB PO SCH ×4 (08:53→21:27)
[2017-06-14] MEDS: ESCITALOPRAM OXALATE 10 MG TAB PO SCH (08:53)
[2017-06-14] MEDS: DICYCLOMINE HCL 10 MG CAP PO SCH ×2 (08:53→21:28)
[2017-06-14] MEDS ORDERED: THM100 PO (09:25)
[2017-06-14] MEDS ORDERED: ESCI1SOL2 PO (09:25)
[2017-06-14] MEDS ORDERED: MULT-890 PO (09:25)
--- NOTE | 2017-06-14 10:36 | Psych Management Progress Note ---
Psychiatry Miscellaneous Date of Service: Jun 14, 2017. Patient seen, MS assessed. Rates mood as 8/10 but "2/10 15 min ago" as was focussing on only having heels to got to rehab with. Encouraged cooperation with care and treatment plan as outlined by allied health prescriber. She is positive with peers and voiced readiness to work the rehab program when transportation available.
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
[2017-06-14] MEDS ORDERED: LXP10 PO (14:02)
--- NOTE | 2017-06-14 17:18 | Psychiatric Progress Notes ---
Progress Note Date of Service Jun 14, 2017. Interval History Maricruz Chávez is a 22-year-old female admitted on Jun 08, 2017 at 05:58 who currently lives in [facility] with a family friend. Maricruz Chávez was admitted on a 201 voluntary commitment. Patient is admitted from home . The patient was brought to the ED by the ambulance called by mother after patient had TI of her medication. Chief Complaint "I'm really anxious right now". Subjective Patient was seen & assessed interval progress reviewed with Treatment Team. Staff reported patient's acceptance to [facility] for rehabilitation, time of transportation pending. Pt was seen and assessed today to discuss discharge to rehab facility. Pt states she is very anxious this morning as she thought she would have more time to plan and feels like she is leaving for rehab on short notice. Pt states she is unsure how she will get clothes and belongings prior to transport. She reports she is "tired" and did not sleep well last evening. Pt states "I've been wanting to go to rehab, it's something I've been looking forward to." Due to concerns with arrangements for her belongings, anxiety is rated at a 9/10 (10=worst) during the encounter. For the same reason, patient rates mood at a 2/10 (10=best). She states she thinks she will feel better once she knows more about what will be happening. Pt denies SI/HI, A/V hallucinations and other psychosis. 17:00 - Calls to [facility] have been made and social work reports they are waiting for a discharge before they can admit the patient. Likely discharge to [facility] will be postponed. Review of Systems Psych: denies symptoms other than stated above Constitutional: denied Cardiovascular: denied GI: denied Neurologic: denied Remainder of 10 body systems also reviewed and denied other than noted above. Sleep Information Total Hours of Sleep: 6.50 Meal Information Percent of Breakfast Consumed: 90 Percent of Lunch Consumed: 75 Percent of Dinner Consumed: 65 Mental Status Exam During interview pt is: alert and oriented, cooperative Appearance: appropriately dressed (in casual, clean clothing), appropriately groomed, other (thin figure) Eye contact is: good Motor behavior is: steady gait & station, no abnormal motor movements Speech: normal in rate, rhythm & volume Affect: mood congruent, anxious (severe) Mood is: anxious ("I'm having really bad anxiety right now") Thought process: goal directed, linear, logical, clear, coherent Thought content: reality based without delusions Suicidal thought are: denied Homicidal thoughts are: denied Hallucinations: denies auditory, denies visual Cognition: memory grossly intact, attention grossly intact, language grossly intact Intelligence estimated to be: average Insight: fair Judgement: fair Impression Pt is anxious about discharge to rehab as she was hoping to have a chance to get her things together. She remains agreeable to rehab. Pt continues to report improvement in mood and denies side effects to her increased dosage of Lexapro. Will continue to call [facility] about anticipated timing of discharge. Pt remains stable, but would greatly benefit from inpatient rehabilitation. Transfer to rehab would be appropriate, however the patient remains at high risk of relapse and potential for harm to self if discharged to the community at this time. Plan (1) Mood disorder 06/08 - Safety - inpatient care is least restrictive care and most appropriate setting for care at this time - depression with concurrent alcohol induced mood disorder contributing - hold on discussion of alternative antidepressants until she is more wakeful, strongly considering remeron or alternative SSRI with caution due to question of nausea - recommend therapy, grant milieu, and supportive therapy - recommend outpatient psychiatry and therapy once stabilized and discharged 06/09 - inpatient remains least restrictive setting as she is in pending withdrawal on controlled taper protocol, as well as ongoing high anxiety and we have not yet assisted with coping skills or modified her risk with aftercare and rehab services or helping with relationship boundary setting or family meeting. - continue with therapy, grant milieu and group. - start lexapro 10mg po qday for anxiety and mood, consented today see subjective of note. 06/10 - Continue escitalopram 10mg and groups/therapy. - Continue hydroxyzine prn. 06/11 - Continue current medications but consider increasing Lexapro to 15 mg as soon as tomorrow 06/12 - Increase escitalopram to 15 mg daily for tomorrow. 06/14 - Continue current medications. - Discharge to rehabilitation when bed and transportation is available. (2) Anxiety 06/08 - see depression as above, remeron would be off label but may help anxiety, SSRI would be preferable for PTSD and VAHE and panic if she would tolerate it, will wait to discuss it with her until she is more wakeful 06/09 - see depression as above 06/13 - Patient with anxiety about her ex boyfriend's mother contacting her and her ex-boyfriend getting out of [facility]. He continues to attempt to contact her, although she has asked him not to. She has been given information about the [facility] [employer], and again discussed this today. She does not wish to receive phone calls from either of these individuals and is going to inform staff. Encouraged her to consider having staff assist her to contact her ex- boyfriend's mother and inform her that she no longer wishes to speak with her, as she feels distressed by contact with this woman. She is also receiving unwanted contact from her ex-boyfriend, and is fearful of him getting out of [facility]. Encouraged her to contact [facility] and to utilize staff supports here to process this and to examine her options, stressing that her safety and stability are the primary concerns right now, as she has been continuing contact with the ex-boyfriend's mother out of a sense of obligation to her. 06/14 - Pt reports increased anxiety due to limited notice about rehab acceptance. Pt was encouraged to make arrangements for items to be brought to her on the unit. Questions were answered and suggested patient speak with delinquency prevention social worker making rehab referral if other concerns about the process. She was agreeable and mildly calmed by this. (3) Alcohol abuse 06/08 and 06/09 AWSS with withdrawal protocol gabapentin loading and ativan prn Recommend rehab services which today she told delinquency prevention social worker she B12, folate testing, and supplementation (elevated RDW) as well as MVI intoxication is most likely cause of elevated serum osmolality elevated ALT/AST in a 2:1 ratio with normal lipase likely alcohol induced hepatitis (given negative MRCP, EGD 01/2017 for similar symptoms and no new findings or s/sx) will monitor 06/10 - Continue AWSS and gabapentin taper. Willing for rehab, will pursue referrals. 06/11 - Will give one time dose of Librium 50 mg in view of hallucinations. - [facility] has supported inpatient referral and will send information to rehabs when medically stable - Encourage patient to hydrate 06/13 - Has not scored on AWSS or required prn lorazepam in 2 days, so will discontinue it. 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 Educated the patient about this, as she was worried it might indicate schizophrenia, and reassured her that this is not likely the case. - The patient is now medically and psychiatrically stable for referral to inpatient rehabilitation. Ideally she would be transferred directly from the hospital to the rehabilitation facility, and is appropriate to attend rehabilitation soon as a bed can be secured. - Patient has been given information about AA and encouraged to follow up with this after rehabilitation, to obtain a sponsor, and to pursue outpatient substance abuse treatment to ensure ongoing sobriety. 06/14 - Notified of acceptance into [facility] for rehabilitation, however no bed availability at this point. Calls have been ongoing throughout the day to assess status. (4) Epigastric abdominal pain 06/08 and 06/09 intoxication is most likely cause of elevated serum osmolality elevated ALT/AST in a 2:1 ratio with normal lipase likely alcohol induced hepatitis (given negative MRCP, EGD 01/2017 for similar symptoms and no new findings or s/sx) will monitor Resume prior regimen (recommended at discharge by GI at her 01/2017 admit): Bentyl 20mg po bid Zofran 4mg q4h prn nausea promethazine 25mg po q6h prn or suppository sucralfate 1 ac and 1 hs 06/13 - Met with dietitian, encouraged to work on improving her diet and ensure adequate nutrition. - Recommend ongoing follow-up as an outpatient to rule out eating disorder, due to low body weight. Thyroid -recheck of TSH WNL, Elevated RDW - unclear as B12, and folate WNL, not anemic, no urgent f/u needed but should be followed longer term by PCM Discharge / Aftercare Planning Primary Care Physician: Name: None Therapist: Name: [facility] ( Inpatient ) Phone Number: Appointment Notes: [id number] [facility] [id number] Scrub Nurse: Name: [facility] - Scrub Nurse to be assigned after pt completes rehab . Appointment Notes: [address] [facility] [address] [facility] [address] Visit Code E&M Code: 78221 Inventory Assets Strengths: voluntary for care at this time willingness to take medications stated willingness to consider alcohol rehab services Needs: safe environment alcohol withdrawal and rehab services mood and anxiety treatment Risk Factors Assessment : No /single/: Yes Higher / Fall in social status: No Access to guns: No Health problems: Yes Mental Health Diagnoses: Yes Substance use disorders: Yes Previous attempt: Yes Previous attempt; didn't tell: Yes Family history of suicide: No Previous psychiatric stay: No Hopelessness: Yes Smoker: Yes Protective Factors Assessment Mormonism beliefs: No : No Responsible for young children: No Employed: No Stable relationships: No Supportive family: No Good rapport with provider: No Absence of risk factors above: No Data Vital Signs Last 24 Hrs: Date Time Temp Pulse Resp B/P (MAP) Pulse Ox O2 Delivery O2 Flow Rate FiO2 06/14/17 07:00 36.4 67 16 133/82 71 128/90 Meds Administered Last 24 Hrs: Meds Administered (Past 24Hrs) Medications (Trade) Dose Ordered Sig/Luis Eduardo Route Start Time Stop Time Status Last Admin Dose Admin Escitalopram Oxalate (Lexapro Tab) 15 mg QAM PO 06/14/17 09:00 07/10/17 08:59 06/14/17 08:53 15 MG
[2017-06-14] MEDS: hydrOXYzine HCL 25 MG TAB PO PRN ×2 (17:58→21:28)
[2017-06-15 06:52] VITALS: BP_SYST 112; BP_SYST 114; BP_DIAS 78; BP_DIAS 83; PULSE 72; TEMP 36.6
[2017-06-15] MEDS: DICYCLOMINE HCL 10 MG CAP PO SCH ×2 (09:31→22:01)
[2017-06-15] MEDS: SUCRALFATE 1 GM TAB PO SCH ×4 (09:31→22:01)
[2017-06-15] MEDS: MULTIVITAMIN TAB PO SCH (09:32)
[2017-06-15] MEDS: THIAMINE HCL 100 MG TAB PO SCH (09:32)
[2017-06-15] MEDS: ESCITALOPRAM OXALATE 10 MG TAB PO SCH (09:33)
--- NOTE | 2017-06-15 14:19 | Psychiatric Progress Notes ---
Progress Note Date of Service Jun 15, 2017. Interval History Maricruz Chávez is a 22-year-old female admitted on Jun 08, 2017 at 05:58 who currently lives in [facility] with a family friend. Maricruz Chávez was admitted on a 201 voluntary commitment. Patient is admitted from home . The patient was brought to the ED by the ambulance called by mother after patient had TI of her medication. Chief Complaint "I feel a lot better than yesterday when we talked". Subjective Patient was seen & assessed interval progress reviewed with Nursing. Staff reports that no bed was made available at the rehab facility the patient had been referred to. Therefore yesterday's discharge was cancelled. They are continuing to fax the patient's records to other inpatient rehab facilities for referrals. Pt was seen today to assess progress since admission. Pt states she is feeling better today after having time to process her transfer to rehab. Pt was unable to get belongings from her mother yesterday, and is planning to have clothes brought to her before she is discharged. Pt states her anxiety has improved and she now rates it a 3/10 (10=worst). Pt reports mood at a 8/10 ( 10=best) and she states she is feeling much better and is ready for rehab. Pt continues to tolerate Lexapro 15mg without side effects. Pt denies SI/HI, A/V hallucinations, and other psychosis. Pt denies ongoing signs of alcohol withdrawal. Review of Systems Psych: denies symptoms other than stated above Constitutional: denied Cardiovascular: denied GI: denied Neurologic: denied Remainder of 10 body systems also reviewed and denied other than noted above. Sleep Information Total Hours of Sleep: 6.25 Meal Information Percent of Breakfast Consumed: 100 Percent of Lunch Consumed: 70 Percent of Dinner Consumed: 70 Mental Status Exam During interview pt is: alert and oriented, cooperative Appearance: appropriately dressed (casual clothing), appropriately groomed, other (thin figure) Eye contact is: good Motor behavior is: steady gait & station, no abnormal motor movements Speech: normal in rate, rhythm & volume Affect: mood congruent, euthymic Mood is: other ("better") Thought process: goal directed, linear, logical, clear, coherent Thought content: reality based without delusions Suicidal thought are: denied Homicidal thoughts are: denied Hallucinations: denies auditory, denies visual Cognition: memory grossly intact, attention grossly intact, language grossly intact Intelligence estimated to be: average Insight: fair Judgement: fair Impression Anxiety from yesterday has improved as patient has had more time to process her pending discharge. Pt states mood and anxiety have been better and she continues to tolerate Lexapro 15mg. Referrals to several inpatient rehabilitation facilities have been made, awaiting acceptance. Pt remains excited and willing for rehab. Patient remains at high risk of relapse and potential for harm to self if discharged to the community at this time. Plan (1) Mood disorder 06/08 - Safety - inpatient care is least restrictive care and most appropriate setting for care at this time - depression with concurrent alcohol induced mood disorder contributing - hold on discussion of alternative antidepressants until she is more wakeful, strongly considering remeron or alternative SSRI with caution due to question of nausea - recommend therapy, grant milieu, and supportive therapy - recommend outpatient psychiatry and therapy once stabilized and discharged 06/09 - inpatient remains least restrictive setting as she is in pending withdrawal on controlled taper protocol, as well as ongoing high anxiety and we have not yet assisted with coping skills or modified her risk with aftercare and rehab services or helping with relationship boundary setting or family meeting. - continue with therapy, grant milieu and group. - start lexapro 10mg po qday for anxiety and mood, consented today see subjective of note. 06/10 - Continue escitalopram 10mg and groups/therapy. - Continue hydroxyzine prn. 06/11 - Continue current medications but consider increasing Lexapro to 15 mg as soon as tomorrow 06/12 - Increase escitalopram to 15 mg daily for tomorrow. 06/14 - Continue current medications. - Discharge to rehabilitation when bed and transportation is available. 06/15 - Continue escitalopram 15mg daily - Search for available beds at inpatient rehabilitation facilities continues (2) Anxiety 06/08 - see depression as above, remeron would be off label but may help anxiety, SSRI would be preferable for PTSD and VAHE and panic if she would tolerate it, will wait to discuss it with her until she is more wakeful 06/09 - see depression as above 06/13 - Patient with anxiety about her ex boyfriend's mother contacting her and her ex-boyfriend getting out of care home. He continues to attempt to contact her, although she has asked him not to. She [facility], and again discussed this today. She does not wish to receive phone calls from either of these individuals and is going to inform staff. Encouraged her to consider having staff assist her to contact her ex- boyfriend's mother and inform her that she no longer wishes to speak with her, as she feels distressed by contact with this woman. She is also receiving unwanted contact from her ex-boyfriend, and is fearful of him getting out of care home. Encouraged [facility] to [facility] and to utilize staff supports here to process this and to examine her options, stressing that her safety and stability are the primary concerns right now, as she has been continuing contact with the ex-boyfriend's mother out of a sense of obligation to her. 06/14 - Pt reports increased anxiety due to limited notice about rehab acceptance. Pt was encouraged to make arrangements for items to be brought to her on the unit. Questions were answered and suggested patient speak with social science research assistant making rehab referral if other concerns about the process. She was agreeable and mildly calmed by this. (3) Alcohol abuse 06/08 and 06/09 AWSS with withdrawal protocol gabapentin loading and ativan prn Recommend rehab services which today she told social science research assistant she B12, folate testing, and supplementation (elevated RDW) as well as MVI intoxication is most likely cause of elevated serum osmolality elevated ALT/AST in a 2:1 ratio with normal lipase likely alcohol induced hepatitis (given negative MRCP, EGD 01/2017 for similar symptoms and no new findings or s/sx) will monitor 06/10 - Continue AWSS and gabapentin taper. Willing for rehab, will pursue referrals. 06/11 - Will give one time dose of Librium 50 mg in view of hallucinations. - [facility] has supported inpatient referral and will send information to rehabs when medically stable - Encourage patient to hydrate 06/13 - Has not scored on AWSS or required prn lorazepam in 2 days, so will discontinue it. 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 Educated the patient about this, as she was worried it might indicate schizophrenia, and reassured her that this is not likely the case. - The patient is now medically and psychiatrically stable for referral to inpatient rehabilitation. Ideally she would be transferred directly from the hospital to the rehabilitation facility, and is appropriate to attend rehabilitation soon as a bed can be secured. - Patient has been given information about AA and encouraged to follow up with this after rehabilitation, to obtain a sponsor, and to pursue outpatient substance abuse treatment to ensure ongoing sobriety. 06/14 - Notified of acceptance into [facility] for rehabilitation, however no bed availability at this point. Calls have been ongoing throughout the day to assess status. 06/15 - Referrals sent to several inpatient rehabilitation facilities, discharge pending acceptance. (4) Epigastric abdominal pain 06/08 and 06/09 intoxication is most likely cause of elevated serum osmolality elevated ALT/AST in a 2:1 ratio with normal lipase likely alcohol induced hepatitis (given negative MRCP, EGD 01/2017 for similar symptoms and no new findings or s/sx) will monitor Resume prior regimen (recommended at discharge by GI at her 01/2017 admit): Bentyl 20mg po bid Zofran 4mg q4h prn nausea promethazine 25mg po q6h prn or suppository sucralfate 1 ac and 1 hs 06/13 - Met with dietitian, encouraged to work on improving her diet and ensure adequate nutrition. - Recommend ongoing follow-up as an outpatient to rule out eating disorder, due to low body weight. Thyroid -recheck of TSH WNL, Elevated RDW - unclear as B12, and folate WNL, not anemic, no urgent f/u needed but should be followed longer term by PCM Discharge / Aftercare Planning Primary Care Physician: Name: None Therapist: Name: [facility] ( Inpatient ) Phone Number: Appointment Notes: [id number] [facility] [address] Want Ad Clerk: Name: [facility]SU - Want Ad Clerk to be assigned after pt completes rehab . Appointment Notes: [address] [facility] [address] Visit Code E&M Code: 70465 Inventory Assets Strengths: voluntary for care at this time willingness to take medications stated willingness to consider alcohol rehab services Needs: safe environment alcohol withdrawal and rehab services mood and anxiety treatment Risk Factors Assessment : No /single/: Yes Higher / Fall in social status: No Access to guns: No Health problems: Yes Mental Health Diagnoses: Yes Substance use disorders: Yes Previous attempt: Yes Previous attempt; didn't tell: Yes Family history of suicide: No Previous psychiatric stay: No Hopelessness: Yes Smoker: Yes Protective Factors Assessment Confucianism beliefs: No : No Responsible for young children: No Employed: No Stable relationships: No Supportive family: No Good rapport with provider: No Absence of risk factors above: No Data Vital Signs Last 24 Hrs: Date Time Temp Pulse Resp B/P (MAP) Pulse Ox O2 Delivery O2 Flow Rate FiO2 06/15/17 06:52 36.6 72 14 112/78 72 114/83 Meds Administered Last 24 Hrs: Meds Administered (Past 24Hrs) Medications (Trade) Dose Ordered Sig/Luis Eduardo Route Start Time Stop Time Status Last Admin Dose Admin Escitalopram Oxalate (Lexapro Tab) 15 mg QAM PO 06/14/17 09:00 07/10/17 08:59 06/15/17 09:33 15 MG
[2017-06-15] MEDS: hydrOXYzine HCL 25 MG TAB PO PRN ×2 (17:48→22:37)
[2017-06-16] MEDS: hydrOXYzine HCL 25 MG TAB PO PRN ×2 (01:42→14:14)
[2017-06-16 06:45] VITALS: BP_SYST 116; BP_SYST 124; BP_DIAS 78; BP_DIAS 88; PULSE 54; PULSE 60; TEMP 36.6
[2017-06-16] MEDS: DICYCLOMINE HCL 10 MG CAP PO SCH (09:05)
[2017-06-16] MEDS: SUCRALFATE 1 GM TAB PO SCH ×2 (09:05→12:24)
[2017-06-16] MEDS: THIAMINE HCL 100 MG TAB PO SCH (09:06)
[2017-06-16] MEDS: ESCITALOPRAM OXALATE 10 MG TAB PO SCH (09:06)
[2017-06-16] MEDS: MULTIVITAMIN TAB PO SCH (09:06)
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
[2017-06-16] MEDS ORDERED: ESCI1TAB9 PO (11:21)
[2017-06-16 14:14] VITALS: BP 124/88; PULSE 60; TEMP 36.6; O2SAT 98
== END 2017-06-16 15:35 | DRG 897 ==
LOC: EDBD 17:03 → C.EDB 17:04 → C.MHU 06-08 05:58
PROVIDERS: ADMIT Psychiatry & Neurology Psychiatry; ATTEND Psychiatry & Neurology Psychiatry
DX: F10.24 Alcohol dependence with alcohol-induced mood disorder (principal); F10.231 Alcohol dependence with withdrawal delirium; F17.200 Nicotine dependence, unspecified, uncomplicated; F41.9 Anxiety disorder, unspecified; F32.9 Major depressive disorder, single episode, unspecified; F90.9 Attention-deficit hyperactivity disorder, unspecified type; K70.10 Alcoholic hepatitis without ascites; Z79.899 Other long term (current) drug therapy

== ENCOUNTER 2019-04-19 02:16 | Inpatient (IN) ==
[2019-04-19] MEDS ORDERED: HYDROCORTISONE ACETATE 25 MG SUPP PR PRN (02:33)
[2019-04-19] MEDS ORDERED: BENZOCAINE 20% AER SPR 82.5 GM CAN EXT PRN (02:33)
[2019-04-19] MEDS ORDERED: ACETAMINOPHEN 325 MG TAB PO PRN (02:33)
[2019-04-19] MEDS ORDERED: DIPHTHERIA/TETANUS/PERTUSSIS 0.5 ML SYR/VIAL IM ONE (02:33)
[2019-04-19] MEDS ORDERED: bisacodyL 10 MG SUPP PR PRN (02:33)
[2019-04-19] MEDS ORDERED: MEASLES, MUMPS & RUBELLA VIRUS VIAL SQ ONE (02:33)
[2019-04-19] MEDS ORDERED: OXYTOCIN 30 UNITS/500 ML BAG IV PRN (02:33)
[2019-04-19] MEDS ORDERED: SUPERCREAM 0.870% 15 GM JAR EXT PRN (02:33)
[2019-04-19] MEDS ORDERED: LACTATED RINGER'S 1,000 ML IV SCH (02:45)
--- NOTE | 2019-04-19 02:53 | History & Physical Report ---
Date of Service April 19, 2019 Assessment & Plan (1) Spontaneous vaginal delivery: 24 yo female with no care, s/p at home Placenta appears complete Elevated BP Plan to admit, IVF, Labs, agrees for drug screening and all therapy (2) Recreational drug use: (3) Methadone dependence: History of Present Illness Chief Complaint: s/p at home Primary Care Provider: Winston Rod MD Patient is a 24 yo who was brought to L&D by an ambulance after home delivery by herself She has not had care She quickly went into labor and delivered spontaneously within 5 minutes after LOF per her. Delivery time 0118, placenta came after She denies SOLOMON/ Change in vision/ N&V/ Abd pain She admits using drugs, IV heroine, Methadone, Marijuana Smoker 1 cig/day No alcohol use h/o recurrent pancreatitis, last time was 2 years ago Does not give much details Allergies Allergy/AdvReac Type Severity Reaction Status Date / Time No Known Allergies Allergy Verified 04/19/19 02:43 Patient History Medical History No significant past medical history Pancreatitis Social History Preferred Language: Kosovan Feels Safe at Home: Yes Smoking Status: Current every day smoker Hx Alcohol Use: Yes Hx Substance Use: Yes substance use type: crack/cocaine Review of Systems All systems reviewed & are unremarkable except as noted in HPI & below Physical Exam Constitutional: WD/WN, vitals as above + ill appearing (thin, jaundice) and + thin Eyes: Jaundice Respiratory: normal respiratory effort, lungs clear to auscultation normal respiratory effort Cardiovascular: RRR, no murmur, no edema Gastrointestinal (Abdomen): Abd: soft, flat, ND, no epigastric tenderness, fundus firm below U Genitourinary: normal external appearance Small cloths removed, 1st degree left labial laceration, not bleeding, No perineal nor vaginal laceration Results & Data Vital Signs (Past 12 Hours) Vital Signs Pulse BP 04/19/19 02:32 57 L 155/101 H 04/19/19 02:21 72 156/110 H
[2019-04-19] MEDS ORDERED: LABETALOL HCL 100 MG TAB PO ONE (02:56)
[2019-04-19 03:15] LABS: Hemoglobin 11.9 g/dL (12.0-16.0); Mean Corpuscular Hemoglobin 25.4 pg (25-34); Mean Corpuscular Volume 76.8 fL (80-100); Mean Platelet Volume 9.9 fL (7.4-10.4); Platelet Count 353 K/uL (130-400); RDW Coefficient of Variation 15.9 % (11.5-14.5); RDW Standard Deviation 44.5 fL (36.4-46.3); Red Blood Count 4.69 M/uL (4.2-5.4); White Blood Count 14.03 K/uL (4.8-10.8)
[2019-04-19] MEDS: IBUPROFEN 600 MG TAB PO PRN ×2 (03:18→18:45)
[2019-04-19 03:20] LABS: Mean Corpuscular Hgb Conc 33.1 g/dL (32-36)
--- NOTE | 2019-04-19 03:27 | Obstetrical Progress Note ---
Date of Service April 19, 2019 Subjective Patient declined repair of 1st degree labial laceration She declined digital exam Placenta is complete VB is minimal to moderate Fundus firm below u Received PO Labetalol Labs are pending Will continue to monitor closely Results & Data Vital Signs (Past 12 Hours) Vital Signs Temp Pulse Resp BP 04/19/19 03:17 99 H 152/101 H 04/19/19 03:07 79 152/98 H 04/19/19 03:06 94 H 127/99 04/19/19 02:51 100 H 20 175/104 H 04/19/19 02:40 20 04/19/19 02:32 57 L 20 155/101 H 04/19/19 02:21 72 156/110 H 04/19/19 02:17 36.6 C 20
[2019-04-19 03:34] LABS: Alanine Aminotransferase 32 U/L (12-78); Albumin Globulin Ratio 0.3 (0.9-2); Albumin Level 1.9 gm/dl (3.4-5.0); Alkaline Phosphatase 505 U/L (45-117); Aspartate Aminotransferase 58 U/L (15-37); BUN Creatinine Ratio 9.2 (10-20); Bilirubin,Total 4.6 mg/dl (0.2-1); Blood Urea Nitrogen 5 mg/dl (7-18); Calcium 9.2 mg/dl (8.5-10.1); Carbon Dioxide 24 mmol/L (21-32); Chloride 98 mmol/L (98-107); Est GFR (African American) 148.3; Est GFR (Non-African American) 127.9; Globulin 5.5 gm/dl (2.5-4.0); Glucose 65 mg/dl (70-99); Potassium 3.9 mmol/L (3.5-5.1); Sodium 133 mmol/L (136-145); Total Protein 7.4 gm/dl (6.4-8.2)
[2019-04-19 03:36] LABS: Fibrinogen 448 mg/dl (184-400); INR 1.1 (0.9-1.1); Partial Thromboplastin Ratio 0.9; Partial Thromboplastin Time 25.4 Seconds (21.0-31.0); Prothrombin Time 11.4 Seconds (9.0-12.0)
[2019-04-19 03:46] LABS: Hepatitis B Surface Antigen Neg (Neg); Rubella IgG Antibody Immune (Immune)
[2019-04-19 04:14] LABS: Hepatitis C IgG 13Yrs+Old_Rflx Neg (Neg)
[2019-04-19] MEDS: ONDANSETRON 2 MG OD TAB PO PRN ×2 (08:28→15:58)
[2019-04-19] MEDS: FERROUS SULFATE 325 MG TAB PO SCH (08:30)
[2019-04-19] MEDS: PRENATAL VITAMIN 1 TAB PO SCH (08:30)
[2019-04-19] MEDS: LABETALOL HCL 100 MG TAB PO SCH ×2 (08:30→20:16)
[2019-04-19] MEDS: DOCUSATE SODIUM 100 MG CAP PO SCH ×2 (08:30→20:16)
[2019-04-19] MEDS ORDERED: DIPHENOXYLATE/ATROPINE 2.5/0.025MG TAB PO PRN (09:49)
--- NOTE | 2019-04-19 10:13 | Obstetrical Progress Note ---
Date of Service April 19, 2019 Subjective Patient is seen and examined. She feels well, no complaints. Nausea+, but no vomiting, Zofran is helping Ambulating without dizziness Voiding without difficulty Tolerating regular diet with out N&V Bleeding is minimal No SOLOMON/ Change in vision/ fever/ chills/ CP/ SOB/ / Leg pain Bottle feeding without problems Vital Signs Temp Pulse Pulse Resp BP BP Pulse Ox 04/19/19 08:18 37.2 C 102 H 20 153/88 H 04/19/19 04:36 84 147/77 H 04/19/19 04:35 36.9 C 84 18 147/77 H 98 04/19/19 04:32 98 H 176/71 H 04/19/19 04:17 36.9 C 80 18 145/100 H 04/19/19 04:02 87 132/96 04/19/19 03:47 77 18 146/97 H 04/19/19 03:32 81 155/107 H 04/19/19 03:17 99 H 18 152/101 H 04/19/19 03:07 79 152/98 H 04/19/19 03:06 94 H 18 127/99 04/19/19 02:51 100 H 20 175/104 H 04/19/19 02:40 20 04/19/19 02:32 57 L 20 155/101 H 04/19/19 02:21 72 156/110 H 04/19/19 02:17 36.6 C 20 Intake and Output 04/18/19 04/19/19 04/19/19 22:59 06:59 14:59 Other: Weight 52.163 kg PE: General: Alert, orientedx3, NAD Abd: soft, NT, fundus firm, below Umbilicus Perineum intact, Lochia rubra minimal Ext; NT, no edema AP: 24 yo s/p at home, ppd# 0 Admitted as h/o drug abuse Had withdrawal symptoms , nausea and wanted to talk to some one for detox I call psychiatry for detox and help for withdrawal, they stated they are not qualified for detox here, and they recommended Clonidine protocol and call medicine She has h/o pancreatitis and I called hospitalist for that, now has jaundice and elevated bilirubin and notified psych recommendation above, they will come and see her Elevated BP, on Labetalol Afebrile doing well clinically Continue to monitor All questions were answered Results & Data Vital Signs (Past 12 Hours) Vital Signs Temp Pulse Pulse Resp BP BP Pulse Ox 04/19/19 08:18 37.2 C 102 H 20 153/88 H 04/19/19 04:36 84 147/77 H 04/19/19 04:35 36.9 C 84 18 147/77 H 98 04/19/19 04:32 98 H 176/71 H 04/19/19 04:17 36.9 C 80 18 145/100 H 04/19/19 04:02 87 132/96 04/19/19 03:47 77 18 146/97 H 04/19/19 03:32 81 155/107 H 04/19/19 03:17 99 H 18 152/101 H 04/19/19 03:07 79 152/98 H 04/19/19 03:06 94 H 18 127/99 04/19/19 02:51 100 H 20 175/104 H 04/19/19 02:40 20 04/19/19 02:32 57 L 20 155/101 H 04/19/19 02:21 72 156/110 H 04/19/19 02:17 36.6 C 20
[2019-04-19 12:06] LABS: Amphetamines+Metham, Urine Pos (Neg); Barbiturates, Urine Neg (Neg); Benzodiazepine, Urine Neg (Neg); Cocaine, Urine Pos (Neg); MDMA (Ecstacy), Urine Pos (Neg); Methadone, Urine Pos (Neg); Opiate, Urine Pos (Neg); Phencyclidine, Urine Neg (Neg)
[2019-04-19] MEDS: PROMETHAZINE HCL 25 MG TAB PO PRN (12:56)
[2019-04-19] MEDS: cloNIDine HCL 0.1 MG TAB PO SCH ×3 (12:56→20:16)
--- NOTE | 2019-04-20 01:03 | History and Physical Report ---
DATE OF ADMISSION: 04/19/2019 CHIEF COMPLAINT: I.V. drug abuse, withdrawal. HISTORY OF PRESENT ILLNESS: This is a 24-year-old female with no significant past medical history, 1, para 1. She came to the hospital. She tried to delivery at home.She had no care and she came to the hospital and had spontaneous vaginal delivery. She was doing fine, but she started developing withdrawal symptoms, for I.V. drug abuse. The patient states she used to drink alcohol, but quit 7 months ago. She was in alcohol rehabilitation. About 3-4 months ago, she started using I.V. drugs. She is doing methadone , heroin and a mixture of drugs. She lives with her boyfriend and his mother. She was started on clonidine for withdrawal and she was doing okay except she was somewhat shaky and somewhat nauseous. She has some mild headache. Currently resting comfortably, seems comfortable. Denies any blurred vision. No earache. No runny nose. She has some mild sore throat. No cough. Eating okay. No difficulty swallowing. No chest pain. No shortness of breath. Denies any abdominal pain. Did not move her bowels since she came to the hospital. She has some burning micturition from soreness from her delivery. Denies any blood in the urine. No swelling in the legs. No rash. ALLERGIES: No known drug allergies. PAST MEDICAL HISTORY: None. PAST SURGICAL HISTORY: None. MEDICATIONS: None at home. FAMILY HISTORY: The patient denies any significant family history. SOCIAL HISTORY: Quit alcohol about seven months ago. Currently doing I.V. drug use since last 3-4 months. She smokes 1 cigarette every day on and off. REVIEW OF SYMPTOMS: As per HPI. Rest of review of systems negative. PHYSICAL EXAMINATION: GENERAL: The patient is thin and frail, not in acute distress. VITAL SIGNS: Temperature 36.9, pulse 84, respiratory rate 16, blood pressure 113/68 and oxygen 98% on room air. HEENT: Head, atraumatic. NECK: Supple. No neck masses. CARDIOVASCULAR: S1, S2 heard. Regular rate and rhythm. No murmur. No gallop. RESPIRATORY SYSTEM: Normal AP diameter. No accessory muscle use. No wheezing. No crackles. ABDOMEN: Soft. Bowel sounds present. No distention. No discomfort. CENTRAL NERVOUS SYSTEM: Alert and awake and oriented. Nonfocal. Moves extremities. EXTREMITIES: No edema. No erythema. LABORATORY DATA: WBC 14, hemoglobin 11.9, hematocrit 36 and platelets 353. PT is 11.4. INR 1.1. APTT 25.4. Sodium 133, potassium 3.9, chloride 98, bicarbonate 24, BUN 5, creatinine 0.5, serum glucose 65, calcium 9.2, total bilirubin 4.6, AST 52 and ALT 32. Alkaline phosphatase is 505. Urine toxicology screen positive for opiates, positive for methadone, positive for amphetamines with MDMA with positive cocaine and marijuana. RPR nonreactive. HBS antigen negative. Hepatitis C antibody negative. HIV A and B negative. Rubella IgG antibody immune. ASSESSMENT AND PLAN: This patient is a 24-year-old female who had a spontaneous delivery of her first and also I.V. drug abuse since the last 3-4 months. We are consulted for withdrawal symptoms and also elevated liver function tests. 1. Intravenous drug abuse. She states she is taking methadone and heroin and mixture of drugs since last 3-4 months. Currently on clonidine for withdrawal. She is doing okay with clonidine and also she is on Phenergan p.r.n., not having any diarrhea. Continue to monitor. If any symptoms worsen, we will try benzodiazepines, Psychiatry consulted, await input. 2. Elevated liver function tests. Total bilirubin 4.6, AST 58 and ALT 32. Alkaline phosphatase is 505. Hepatitis A and B negative. We will check a liver ultrasound. Possibly from alcoholism. Follow the repeat laboratories. If any concern, consult Gastroenterology. 3. Hypertension, probably from withdrawal, currently on labetalol and clonidine. We will monitor. 4. Deep venous thrombosis prophylaxis, sequential compression devices. DISPOSITION: As per DIRECTOR PATIENT FIN[employer]CIAL SERVICES. [facility]
[2019-04-20] MEDS: IBUPROFEN 600 MG TAB PO PRN ×3 (04:03→15:58)
[2019-04-20] MEDS: cloNIDine HCL 0.1 MG TAB PO PRN (04:03)
--- NOTE | 2019-04-20 06:39 | Ultrasound Report ---
US liver HISTORY: 24 years-old Female elevated lft acutely elevated LFTs COMPARISON: Right upper quadrant abdominal ultrasound 01/19/2019, CT abdomen pelvis 06/08/2017 TECHNIQUE: Multiple real-time sonographic images of the abdominal right upper quadrant were obtained assessing grayscale appearance and color flow FINDINGS: The pancreas is partially obscured by bowel gas. The visualized portions of the pancreas appear unrem arkable. The liver is within normal limits without focal mass or intrahepatic biliary ductal dilation . Suggestion of trace layering gallbladder sludge. Gallbladder is mildly contracted without significa nt wall thickening, shadowing cholelithiasis or pericholecystic fluid. Common bile duct is normal, 2 mm. Imaged right kidney is unremarkable without hydronephrosis. IMPRESSION: 1. Probable trace gallbladder sludge without cholelithiasis or sonographic evidence of acute cholecys titis. 2. No biliary ductal dilation. The above report was generated using voice recognition software. It may contain grammatical, syntax o r spelling errors. Electronically signed by: Andrés Tran M.D. 04/20/2019 6:37 AM
[2019-04-20 07:14] LABS: Hematocrit (blood only) 24.1 % (37-47); Hemoglobin 7.8 g/dL (12.0-16.0); Mean Corpuscular Hgb Conc 32.4 g/dL (32-36); Mean Corpuscular Volume 77.2 fL (80-100); Mean Platelet Volume 10.2 fL (7.4-10.4); Platelet Count 244 K/uL (130-400); RDW Coefficient of Variation 15.8 % (11.5-14.5); RDW Standard Deviation 44.9 fL (36.4-46.3); Red Blood Count 3.12 M/uL (4.2-5.4); White Blood Count 8.63 K/uL (4.8-10.8)
[2019-04-20 07:47] LABS: Albumin Globulin Ratio 0.4 (0.9-2); Albumin Level 1.3 gm/dl (3.4-5.0); BUN Creatinine Ratio 6.3 (10-20); Bilirubin,Total 2.3 mg/dl (0.2-1); Calcium 8.2 mg/dl (8.5-10.1); Creatinine Clr Calc Pharmacy 111.4 ml/min; Est GFR (African American) 143.5; Est GFR (Non-African American) 123.8; Globulin 3.7 gm/dl (2.5-4.0); Potassium 3.2 mmol/L (3.5-5.1)
[2019-04-20] MEDS: cloNIDine HCL 0.1 MG TAB PO SCH ×4 (08:03→20:22)
[2019-04-20] MEDS: PRENATAL VITAMIN 1 TAB PO SCH (08:31)
[2019-04-20] MEDS: FERROUS SULFATE 325 MG TAB PO SCH (08:31)
[2019-04-20] MEDS: DOCUSATE SODIUM 100 MG CAP PO SCH ×2 (08:31→21:15)
--- NOTE | 2019-04-20 09:07 | Obstetrical Progress Note ---
Date of Service April 20, 2019 Subjective PPD#1 home delivery ambulating tolerating diet passing gas Physical Exam Constitutional: WD/WN, vitals as above + thin, + frail appearing and comfortable Fundus firm abdomen soft and non-tender neg edema neg Homans labs reviewed Patient in withdrawal from polysubstance abuse Psych consult and social and human services assistant consult pending Results & Data Vital Signs (Past 12 Hours) Vital Signs Temp Pulse Resp BP Pulse Ox 04/20/19 04:00 85 16 128/83 99 04/19/19 23:50 36.9 C 84 16 113/68 99 Laboratory Results 04/19/19 04/19/19 04/19/19 02:38 02:38 02:38 WBC RBC Hgb Hct MCV MCH MCHC RDW Std Deviation RDW Coeff of Ti Plt Count MPV PT INR APTT PTT Ratio Fibrinogen Sodium Potassium Chloride Carbon Dioxide Anion Gap BUN Creatinine Est Cr Clr Drug Dosing Est GFR ( Amer) Est GFR (Non-Af Amer) BUN/Creatinine Ratio Glucose Calcium Total Bilirubin AST ALT Alkaline Phosphatase Total Protein Albumin Globulin Albumin/Globulin Ratio Urine Opiates Screen Ur Methadone, Qual Urine Barbiturates Ur Phencyclidine (PCP) U Amphetamin/Meth Scrn MDMA (Ecstasy) Screen U Benzodiazepines Scrn Ur Cocaine Metabolite U Marijuana (THC) Screen RPR Nonreactive Hep Bs Antigen Neg Hepatitis C Antibody Neg HIV 1&2 Ab/P24 Ag 4thGn Neg Rubella IgG Antibody Immune Blood Type 04/19/19 04/19/19 04/19/19 02:48 03:02 03:02 WBC 14.03 H RBC 4.69 Hgb 11.9 L Hct 36.0 L MCV 76.8 L MCH 25.4 MCHC 33.1 RDW Std Deviation 44.5 RDW Coeff of Ti 15.9 H Plt Count 353 MPV 9.9 PT INR APTT PTT Ratio Fibrinogen Sodium 133 L Potassium 3.9 Chloride 98 Carbon Dioxide 24 Anion Gap 11.0 BUN 5 L Creatinine 0.57 L Est Cr Clr Drug Dosing Not Reportable Est GFR ( Amer) 148.3 Est GFR (Non-Af Amer) 127.9 BUN/Creatinine Ratio 9.2 L Glucose 65 L Calcium 9.2 Total Bilirubin 4.6 H AST 58 H ALT 32 Alkaline Phosphatase 505 H Total Protein 7.4 Albumin 1.9 L Globulin 5.5 H Albumin/Globulin Ratio 0.3 L Urine Opiates Screen Ur Methadone, Qual Urine Barbiturates Ur Phencyclidine (PCP) U Amphetamin/Meth Scrn MDMA (Ecstasy) Screen U Benzodiazepines Scrn Ur Cocaine Metabolite U Marijuana (THC) Screen RPR Hep Bs Antigen Hepatitis C Antibody HIV 1&2 Ab/P24 Ag 4thGn Rubella IgG Antibody Blood Type O Positive 04/19/19 04/19/19 04/20/19 03:02 10:30 06:03 WBC 8.63 RBC 3.12 L Hgb 7.8 L D Hct 24.1 L MCV 77.2 L MCH 25.0 MCHC 32.4 RDW Std Deviation 44.9 RDW Coeff of Ti 15.8 H Plt Count 244 MPV 10.2 PT 11.4 INR 1.1 APTT 25.4 PTT Ratio 0.9 Fibrinogen 448 H Sodium Potassium Chloride Carbon Dioxide Anion Gap BUN Creatinine Est Cr Clr Drug Dosing Est GFR ( Amer) Est GFR (Non-Af Amer) BUN/Creatinine Ratio Glucose Calcium Total Bilirubin AST ALT Alkaline Phosphatase Total Protein Albumin Globulin Albumin/Globulin Ratio Urine Opiates Screen Pos H Ur Methadone, Qual Pos H Urine Barbiturates Neg Ur Phencyclidine (PCP) Neg U Amphetamin/Meth Scrn Pos H MDMA (Ecstasy) Screen Pos H U Benzodiazepines Scrn Neg Ur Cocaine Metabolite Pos H U Marijuana (THC) Screen Pos H RPR Hep Bs Antigen Hepatitis C Antibody HIV 1&2 Ab/P24 Ag 4thGn Rubella IgG Antibody Blood Type 04/20/19 06:03 WBC RBC Hgb Hct MCV MCH MCHC RDW Std Deviation RDW Coeff of Ti Plt Count MPV PT INR APTT PTT Ratio Fibrinogen Sodium 139 Potassium 3.2 L D Chloride 106 Carbon Dioxide 26 Anion Gap 7.0 BUN 4 L Creatinine 0.63 Est Cr Clr Drug Dosing 111.4 Est GFR ( Amer) 143.5 Est GFR (Non-Af Amer) 123.8 BUN/Creatinine Ratio 6.3 L Glucose 104 H Calcium 8.2 L Total Bilirubin 2.3 H AST 47 H ALT 25 Alkaline Phosphatase 358 H Total Protein 5.0 L D Albumin 1.3 L Globulin 3.7 Albumin/Globulin Ratio 0.4 L Urine Opiates Screen Ur Methadone, Qual Urine Barbiturates Ur Phencyclidine (PCP) U Amphetamin/Meth Scrn MDMA (Ecstasy) Screen U Benzodiazepines Scrn Ur Cocaine Metabolite U Marijuana (THC) Screen RPR Hep Bs Antigen Hepatitis C Antibody HIV 1&2 Ab/P24 Ag 4thGn Rubella IgG Antibody Blood Type
[2019-04-20] MEDS: ONDANSETRON 2 MG OD TAB PO PRN ×2 (09:25→20:23)
[2019-04-20] MEDS: LABETALOL HCL 100 MG TAB PO SCH ×2 (09:27→21:16)
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
--- NOTE | 2019-04-20 17:43 | Hospitalist Progress Note ---
Date of Service April 20, 2019 Assessment & Plan (1) Recreational drug use: hX Of polysubstance abuse ( ETOH , Marijuana , cocaine , THC , iv drug use Heroine ) continued to use IV drugs while being had a vaginal delivery at home , without any medical attendance ( pt did not rec eive any pre sumit care as well ) Urine tox screen + Marijuana so far no active sign of withdrawal ( no agitation , confusion or hallucination ) /no hemodynamic instabilty with Tachycardia /hypertensive urgency pt is ordered PRN Clonidine for Hypertensive episodes ordered Labetalol BID -which should be continued con to monitor TRANASAMITNITS : possible due to drug abuse -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 hepatitis ( which usually resolved spontaneously , when offending agents ( marijuana ) D/brian liver USG : no evidence of cholecystitis or gall bladder disease Hepatitis panel negative IV fluids follow trends POST STATUS : as per Ob Subjective PPD#1 home delivery ambulating tolerating diet passing gas Physical Exam Constitutional: WD/WN, vitals as above + thin; no acute distress Eyes: PERRL, conjunctivae normal, anicteric sclerae ENMT: external ear and nose normal, oropharynx normal Neck: trachea midline, no thyromegaly Respiratory: normal respiratory effort, lungs clear to auscultation Cardiovascular: RRR, no murmur, no edema Gastrointestinal (Abdomen): Inspection/Auscultation: normal bowel sounds Percussion/Palpation: abdomen soft; abdomen nontender Musculoskeletal: no cyanosis or clubbing, extremities motor strength 5/5 Neurologic: PERRL, EOMI, accommodation nl, no face palsy, no dysarthria Psychiatric: A+Ox3, euthymic affect Results & Data Vital Signs (Past 12 Hours) Vital Signs Temp Pulse Resp BP Pulse Ox 04/20/19 15:55 37.3 C 105 H 16 127/82 100 04/20/19 11:59 74 18 132/94 04/20/19 09:25 79 18 126/83 04/20/19 08:00 37.1 C 80 16 118/75 100
[2019-04-20] MEDS ORDERED: bisacodyL 5 MG TABEC PO SCH (20:00)
[2019-04-21 06:21] LABS: Hematocrit (blood only) 25.4 % (37-47); Hemoglobin 8.2 g/dL (12.0-16.0)
[2019-04-21] MEDS: cloNIDine HCL 0.1 MG TAB PO PRN ×3 (06:34→23:46)
[2019-04-21] MEDS: cloNIDine HCL 0.1 MG TAB PO SCH ×4 (08:01→20:42)
[2019-04-21 08:38] LABS: Amphetamines+Metham, Urine Neg (Neg); Barbiturates, Urine Neg (Neg); Benzodiazepine, Urine Neg (Neg); Cocaine, Urine Neg (Neg); MDMA (Ecstacy), Urine Neg (Neg); Methadone, Urine Neg (Neg); Opiate, Urine Neg (Neg); Phencyclidine, Urine Neg (Neg)
[2019-04-21] MEDS: ONDANSETRON 2 MG OD TAB PO PRN (09:03)
[2019-04-21] MEDS: FERROUS SULFATE 325 MG TAB PO SCH (09:03)
[2019-04-21] MEDS: PRENATAL VITAMIN 1 TAB PO SCH (09:03)
[2019-04-21] MEDS: DOCUSATE SODIUM 100 MG CAP PO SCH ×2 (09:03→20:43)
[2019-04-21] MEDS: LABETALOL HCL 100 MG TAB PO SCH ×2 (09:15→20:42)
--- NOTE | 2019-04-21 10:11 | Obstetrical Progress Note ---
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 pt waiting for Rehab admission and transfer On clonidine and labetalol Stable BP this AM Subjective Ambulation: ambulating normally Voiding: no voiding problems Passing Gas:: Yes Diet Tolerance:: regular diet Lochia:: Small Feeding Type:: breast feeding Review of Systems All systems reviewed & are unremarkable except as noted in HPI & below Physical Exam Constitutional WD/WN, vitals as above well developed and well nourished Eyes PERRL, conjunctivae normal, anicteric sclerae Neck trachea midline, no thyromegaly Respiratory normal respiratory effort, lungs clear to auscultation Auscultation: no crackles, no rales and no wheezes Cardiovascular RRR, no murmur, no edema Gastrointestinal (Abdomen) normal bowel sounds, soft, nontender, no hepatosplenomegaly Uterus is below umbilicus Musculoskeletal no cyanosis or clubbing, extremities motor strength 5/5 Skin no rashes, warm and dry Neurologic patellar DTR's 2+ bilat, sensation intact Psychiatric A+Ox3, euthymic affect Genitourinary normal external appearance Results & Data Vital Signs (Past 12 Hours) Vital Signs Temp Pulse Pulse Pulse Resp BP BP 04/21/19 07:50 36.8 C 130 H 15 110/78 04/21/19 06:32 66 66 18 136/90 04/21/19 04:40 36.9 C 65 16 129/83 04/20/19 23:57 36.8 C 92 H 16 120/80 Pulse Ox 04/21/19 07:50 98 04/21/19 06:32 04/21/19 04:40 99 04/20/19 23:57
[2019-04-21] MEDS: IBUPROFEN 600 MG TAB PO PRN ×3 (11:11→23:46)
--- NOTE | 2019-04-21 19:39 | Hospitalist Progress Note ---
Date of Service April 21, 2019 Subjective This is addendum to H and P: Patient delivered baby at Home. Results & Data Vital Signs (Past 12 Hours) Vital Signs Temp Pulse Pulse Resp BP BP Pulse Ox 04/21/19 18:20 98 H 131/91 04/21/19 17:35 150/91 H 04/21/19 16:03 36.8 C 57 L 16 155/96 H 99 04/21/19 12:10 37.1 C 67 18 148/98 H 04/21/19 09:15 36.8 C 71 18 142/89 H 100 04/21/19 07:50 36.8 C 130 H 15 110/78 98
[2019-04-22] MEDS: cloNIDine HCL 0.1 MG TAB PO SCH ×4 (08:16→20:16)
--- NOTE | 2019-04-22 08:48 | Obstetrical Progress Note ---
Date of Service April 22, 2019 Physical Exam Physical Exam: patient experiencing withdrawal symptoms blood pressure is elevated nausea present tingling of arms and legs hgb 8.2 Results & Data Vital Signs (Past 12 Hours) Vital Signs Temp Pulse Resp BP Pulse Ox 04/22/19 03:30 36.8 C 80 18 136/93 97 04/21/19 23:35 36.7 C 91 H 18 128/85
[2019-04-22] MEDS: IBUPROFEN 600 MG TAB PO PRN ×2 (09:01→20:15)
[2019-04-22] MEDS: ONDANSETRON 2 MG OD TAB PO PRN ×2 (09:01→16:56)
[2019-04-22] MEDS: PRENATAL VITAMIN 1 TAB PO SCH (09:01)
[2019-04-22] MEDS: DOCUSATE SODIUM 100 MG CAP PO SCH ×2 (09:01→20:16)
[2019-04-22] MEDS: FERROUS SULFATE 325 MG TAB PO SCH (09:03)
[2019-04-22] MEDS: LABETALOL HCL 100 MG TAB PO SCH (09:25)
[2019-04-22 13:06] LABS: Marijuana Quant, GCMS Urine 272
[2019-04-22 13:07] LABS: Cocaine, Urine 798
[2019-04-22 13:08] LABS: Methadone, Ur Metabolite 25200
[2019-04-22 13:09] LABS: Codeine Urine NEGATIVE; Hydrocodone Urine NEGATIVE; Hydromor Urine NEGATIVE; Morphine Urine 408; Norhydrocodone Conf Ur NEGATIVE; Noroxycodone Urine NEGATIVE; Oxycodone Urine NEGATIVE
[2019-04-22 13:11] LABS: Amphetamine Urine, Confirm 1090; Methamphetamine, Ur Confirm 2960; Oxymorph Urine NEGATIVE
[2019-04-22] MEDS: cloNIDine HCL 0.1 MG TAB PO PRN ×2 (13:48→23:48)
--- NOTE | 2019-04-22 16:40 | Hospitalist Progress Note ---
Date of Service April 22, 2019 Assessment & Plan (1) Recreational drug use: hX Of polysubstance abuse ( ETOH , Marijuana , cocaine , THC , iv drug use Heroine ) continued to use IV drugs while being had a vaginal delivery at home , without any medical attendance ( pt did not rec eive any pre sumit care as well ) Urine tox screen + Marijuana so far no active sign of withdrawal ( no agitation , confusion or hallucination ) /no hemodynamic instabilty with Tachycardia /hypertensive urgency pt is ordered PRN Clonidine for Hypertensive episodes on Labetalol BID -which should be continued cont to monitor BP remains stable , not tachycardic , afebrile tolerating diet Gi symptoms( nausea ) most possibly due to Marijuna use pt is counselled repeatedly for inpatient Durg and alcohol rehab TRANSAMINITIS : elevated AST/ALT hx of chronic alcohol use ( liver usg negative for Cirrhosis) possible due to drug abuse -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 hepatitis ( which usually resolved spontaneously , when offending agents ( marijuana ) D/brian liver USG : no evidence of cholecystitis or gall bladder disease Hepatitis panel negative given IV fluids ordered to repeat LFT in AM POST STATUS : as per Ob Subjective pt reports of nausea , otherwise feels fine no vomiting episode , no abdominal pain /cramps /no diarrhea Physical Exam Constitutional: WD/WN, vitals as above + thin; no acute distress Eyes: PERRL, conjunctivae normal, anicteric sclerae ENMT: external ear and nose normal, oropharynx normal Neck: trachea midline, no thyromegaly Respiratory: normal respiratory effort, lungs clear to auscultation Cardiovascular: RRR, no murmur, no edema Gastrointestinal (Abdomen): Inspection/Auscultation: normal bowel sounds Percussion/Palpation: abdomen soft; abdomen nontender Musculoskeletal: no cyanosis or clubbing, extremities motor strength 5/5 Neurologic: PERRL, EOMI, accommodation nl, no face palsy, no dysarthria Psychiatric: A+Ox3, euthymic affect Results & Data Vital Signs (Past 12 Hours) Vital Signs Temp Pulse Pulse Resp BP Pulse Ox 04/22/19 13:46 94 H 18 116/84 99 04/22/19 11:45 129/84 04/22/19 09:15 142/102 H 04/22/19 08:15 36.4 C L 95 H 18 119/90 100
[2019-04-22 18:02] LABS: Chlamydia Trach RNA NOT DETECTED (NOT DETECTED); GC (Neis gonorrhoeae) RNA NOT DETECTED (NOT DETECTED)
[2019-04-22] MEDS: LABETALOL HCL 200 MG TAB PO SCH (20:15)
[2019-04-23] MEDS: IBUPROFEN 600 MG TAB PO PRN ×2 (07:00→17:28)
[2019-04-23] MEDS: cloNIDine HCL 0.1 MG TAB PO PRN ×2 (07:01→23:48)
[2019-04-23 07:20] LABS: Albumin Level 1.4 gm/dl (3.4-5.0); Bilirubin Direct 1.3 mg/dl (0-0.2); Bilirubin,Total 1.6 mg/dl (0.2-1); Total Protein 5.5 gm/dl (6.4-8.2)
[2019-04-23 08:44] LABS: Marijuana Quant, GCMS Urine 62 ng/mL (<5)
[2019-04-23] MEDS: FERROUS SULFATE 325 MG TAB PO SCH (09:18)
[2019-04-23] MEDS: DOCUSATE SODIUM 100 MG CAP PO SCH (09:18)
[2019-04-23] MEDS: PRENATAL VITAMIN 1 TAB PO SCH (09:18)
[2019-04-23] MEDS: LABETALOL HCL 200 MG TAB PO SCH ×2 (09:19→21:19)
[2019-04-23] MEDS: ONDANSETRON 2 MG OD TAB PO PRN (09:19)
[2019-04-23] MEDS: cloNIDine HCL 0.1 MG TAB PO SCH ×4 (09:20→19:35)
--- NOTE | 2019-04-23 11:11 | Obstetrical Progress Note ---
Date of Service April 23, 2019 Subjective Patient is seen and examined. She feels okay, no complaints other than nausea Ambulating without dizziness Voiding without difficulty Tolerating regular diet Bleeding is minimal No fever/ chills/ CP/ SOB/ Leg pain Bottle feeding without problems Vital Signs Temp Pulse Pulse Resp BP BP Pulse Ox 04/23/19 08:15 36.7 C 65 20 148/104 H 100 04/23/19 03:40 36.8 C 63 18 129/82 100 04/22/19 23:40 36.5 C 78 16 136/92 100 04/22/19 21:10 149/96 H 04/22/19 20:14 78 150/100 H 04/22/19 19:10 36.7 C 75 16 153/103 H 157/101 H 100 04/22/19 15:30 36.9 C 75 20 147/94 H 99 04/22/19 13:46 94 H 18 116/84 99 04/22/19 11:45 129/84 04/23/19 04/21/19 04/20/19 Range/Units 06:12 08:00 21:40 Total Bilirubin 1.6 H (0.2-1) mg/dl Direct Bilirubin 1.3 H (0-0.2) mg/dl AST 46 H (15-37) U/L ALT 31 (12-78) U/L Alkaline Phosphatase 405 H (45-117) U/L Total Protein 5.5 L (6.4-8.2) gm/dl Albumin 1.4 L (3.4-5.0) gm/dl U Codeine Confrm GC/MS Ur Morphine (GC/MS) Ur Hydrocodone (GC/MS) Ur Norhydrocodone Ur Noroxycodone Urine Oxycodone (GC/MS) U Oxymorphone GC/MS U Methadone Metabolites Ur Methadone Confirm Ur Hydromorphone (GC/MS) U Amphetamines Confirm U Methamphetamin Confrm U MDMA (Ecstasy), Quant U Cocaine Confirm GC/MS U Marijuana THC Carboxy 62 H Drug Screen Comment SEE NOTE C.trachomatis RNA NOT DETECTED (NOT DETECTED) N.gonorrhoeae RNA NOT DETECTED (NOT DETECTED) 04/19/19 04/19/19 Range/Units 10:30 10:30 Total Bilirubin (0.2-1) mg/dl Direct Bilirubin (0-0.2) mg/dl AST (15-37) U/L ALT (12-78) U/L Alkaline Phosphatase (45-117) U/L Total Protein (6.4-8.2) gm/dl Albumin (3.4-5.0) gm/dl U Codeine Confrm GC/MS NEGATIVE Ur Morphine (GC/MS) 408 Ur Hydrocodone (GC/MS) NEGATIVE Ur Norhydrocodone NEGATIVE Ur Noroxycodone NEGATIVE Urine Oxycodone (GC/MS) NEGATIVE U Oxymorphone GC/MS NEGATIVE U Methadone Metabolites 19320 Ur Methadone Confirm 1350 Ur Hydromorphone (GC/MS) NEGATIVE U Amphetamines Confirm 1090 U Methamphetamin Confrm 2960 U MDMA (Ecstasy), Quant REPORT U Cocaine Confirm GC/MS 798 U Marijuana THC Carboxy 272 Drug Screen Comment C.trachomatis RNA (NOT DETECTED) N.gonorrhoeae RNA (NOT DETECTED) PE: General: Alert, orientedx3, NAD Abd: soft, NT, fundus firm, below Umbilicus Perineum intact, Lochia rubra minimal Ext; NT, no edema AP: 24 yo s/p , ppd# 4 Admitted as h/o substance abuse, multiple On Clonidine protocol HT: on Labetalol Medicine /psyhc consults Awaiting placement and medicine input for d/c Continue to monitor All questions were answered Results & Data Vital Signs (Past 12 Hours) Vital Signs Temp Pulse Pulse Resp BP BP Pulse Ox 04/23/19 08:15 36.7 C 65 20 148/104 H 100 04/23/19 03:40 36.8 C 63 18 129/82 100 04/22/19 23:40 36.5 C 78 16 136/92 100
--- NOTE | 2019-04-23 18:34 | Hospitalist Progress Note ---
Date of Service April 23, 2019 Assessment & Plan (1) Recreational drug use: (1) Recreational drug use: hX Of polysubstance abuse ( ETOH , Marijuana , cocaine , THC , iv drug use Heroine ) no signs of overt withdrawal today continue Clonidine 0.1 mg q4h today, may start to taper to q6h tomorrow if patient continues to remain stable monitor closely case management on board to transition patient directly to inpatient Rehab no medical contraindication to transition to inpatient Rehab when accepted TRANSAMINITIS : elevated AST/ALT likely from Alcoholism, Drug Use liver USG : no evidence of cholecystitis or gall bladder disease Hepatitis panel negative LFTs improving continue to monitor closely as outpatient POST STATUS : as per Ob Subjective ff up for opioid abuse, post seen with RN Al at bedside throughout whole encounter resting, in good spirits state she feels fine overall reports very mild anxiety, otherwise no tremors, headache, nausea, abdominal pain, etc. no other symptoms Review of Systems Review of Systems: All systems reviewed & are unremarkable except as noted in HPI & below Physical Exam Physical Exam: General- oriented x 3, not in distress, speaks in sentences with no effort or accessory muscle use Head- atraumatic Eyes- PERRL, EOMI, anicteric ENT- oropharynx clear Neck- supple, no JVD, no adenopathy, no thyromegaly; carotids +2/2, no bruits appreciated Lungs- clear to auscultation bilaterally, no rales/wheezes Heart- normal rate, regular rhythm; no murmur, no gallop, no rub appreciated Abdomen- normal bowel sounds, nondistended, soft, nontender, no masses or hepatosplenomegaly Extremities- no pretibial edema, no calf tenderness; peripheral pulses intact Neuro- alert, oriented x 3; CN 2-12 grossly intact; motor 5/5 bilaterally;sensation 100% on all extremities; no other gross focal neurologic deficits Skin- warm & dry Results & Data Vital Signs (Past 12 Hours) Vital Signs Temp Pulse Pulse Resp BP BP Pulse Ox 04/23/19 15:30 36.6 C 91 H 18 118/79 04/23/19 12:38 108 H 108/74 04/23/19 08:15 36.7 C 65 20 148/104 H 100 Laboratory Results Laboratory Results - last 24 hr 04/19/19 04/21/19 04/23/19 10:30 08:00 06:12 Total Bilirubin 1.6 H Direct Bilirubin 1.3 H AST 46 H ALT 31 Alkaline Phosphatase 405 H Total Protein 5.5 L Albumin 1.4 L U MDMA (Ecstasy), Quant REPORT U Marijuana THC Carboxy 62 H Drug Screen Comment SEE NOTE
[2019-04-24] MEDS: cloNIDine HCL 0.1 MG TAB PO PRN ×3 (04:38→22:01)
[2019-04-24] MEDS: IBUPROFEN 600 MG TAB PO PRN ×2 (05:50→18:20)
[2019-04-24 08:11] LABS: Albumin Level 1.5 gm/dl (3.4-5.0); Aspartate Aminotransferase 48 U/L (15-37); BUN Creatinine Ratio 17.4 (10-20); Bilirubin Direct 1.6 mg/dl (0-0.2); Blood Urea Nitrogen 7 mg/dl (7-18); Calcium 8.4 mg/dl (8.5-10.1); Carbon Dioxide 23 mmol/L (21-32); Chloride 109 mmol/L (98-107); Creatinine Clr Calc Pharmacy 189.7 ml/min; Est GFR (African American) > 150.0; Est GFR (Non-African American) 147.5; Glucose 90 mg/dl (70-99); Potassium 3.6 mmol/L (3.5-5.1); Sodium 138 mmol/L (136-145)
[2019-04-24 08:15] LABS: Alanine Aminotransferase 30 U/L (12-78); Alkaline Phosphatase 477 U/L (45-117); Bilirubin,Total 1.6 mg/dl (0.2-1); Total Protein 5.7 gm/dl (6.4-8.2)
[2019-04-24] MEDS: PRENATAL VITAMIN 1 TAB PO SCH (09:49)
[2019-04-24] MEDS: FERROUS SULFATE 325 MG TAB PO SCH ×2 (09:49→22:02)
[2019-04-24] MEDS: DOCUSATE SODIUM 100 MG CAP PO SCH ×3 (09:49→22:08)
[2019-04-24] MEDS: cloNIDine HCL 0.1 MG TAB PO SCH ×4 (09:52→20:03)
[2019-04-24] MEDS: LABETALOL HCL 200 MG TAB PO SCH ×2 (10:36→22:01)
[2019-04-24] MEDS: ONDANSETRON 2 MG OD TAB PO PRN ×2 (10:37→16:08)
--- NOTE | 2019-04-24 12:43 | Communication Note ---
Date of Service: April 24, 2019 This provider received a phone call from nursing on the mother and baby unit. It is reported patient is asking for medication for anxiety, and recommendations are being requested. This provider suggested utilization of diphenhydramine 25 mg for management of anxiety symptoms. Would suggest continuation of clonidine protocol per primary team and reviewed diphenhydramine should be utilized for anxiety only, not as sole medication to treat instances where multiple withdrawal symptoms are present. Based on patient substance abuse history, highly recommend avoiding anxiolytic medications with abuse potential.
[2019-04-24] MEDS ORDERED: SODIUM CHLORIDE 0.9% 1000ML 1,000 ML IV SCH (14:30)
--- NOTE | 2019-04-24 18:50 | Hospitalist Progress Note ---
Date of Service April 24, 2019 Assessment & Plan (1) Recreational drug use: (1) Recreational drug use: (1) Recreational drug use: hX Of polysubstance abuse ( ETOH , Marijuana , cocaine , THC , iv drug use Heroine ) Having some GI symptoms today Stool cultures and stool for C. difficile ordered continue Clonidine 0.1 mg q4h today monitor closely case management on board to transition patient directly to inpatient Rehab no medical contraindication to transition to inpatient Rehab when accepted TRANSAMINITIS : elevated AST/ALT likely from Alcoholism, Drug Use liver USG : no evidence of cholecystitis or gall bladder disease Hepatitis panel negative LFTs improving continue to monitor closely as outpatient POST STATUS : as per Ob Subjective Follow-up for opiate withdrawal Seen with RN at the bedside throughout whole encounter Resting in bed, comfortable Reports mild abdominal discomfort, 3 episodes of diarrhea today Denies tremors, sweats Mild anxiety No other symptoms Review of Systems Review of Systems: All systems reviewed & are unremarkable except as noted in HPI & below Physical Exam Physical Exam: General- oriented x 3, not in distress, speaks in sentences with no effort or accessory muscle use Eyes- anicteric Neck- no JVD Lungs- clear breath sounds bilaterally Heart- normal rate, regular rhythm; no murmurs Abdomen- normal bowel sounds, nondistended, soft, nontender Extremities- no pretibial edema, no calf tenderness Neuro- alert, oriented x 3; no gross focal neurologic deficits Skin- warm & dry Results & Data Vital Signs (Past 12 Hours) Vital Signs Temp Pulse Pulse Resp BP BP Pulse Ox 04/24/19 15:55 36.6 C 78 20 133/84 04/24/19 10:41 92 H 124/88 04/24/19 07:15 37 C 85 19 145/96 H 98 Laboratory Results Laboratory Results - last 24 hr 04/24/19 07:02 Sodium 138 Potassium 3.6 Chloride 109 H Carbon Dioxide 23 Anion Gap 6.0 BUN 7 Creatinine 0.37 L Est Cr Clr Drug Dosing 189.7 Est GFR ( Amer) > 150.0 Est GFR (Non-Af Amer) 147.5 BUN/Creatinine Ratio 17.4 Glucose 90 Calcium 8.4 L Total Bilirubin 1.6 H Direct Bilirubin 1.6 H AST 48 H ALT 30 Alkaline Phosphatase 477 H Total Protein 5.7 L Albumin 1.5 L
[2019-04-24] MEDS: PROMETHAZINE HCL 25 MG TAB PO PRN (22:06)
[2019-04-25] MEDS: IBUPROFEN 600 MG TAB PO PRN ×3 (01:27→14:42)
[2019-04-25] MEDS: PROMETHAZINE HCL 25 MG TAB PO PRN (07:15)
[2019-04-25] MEDS: PRENATAL VITAMIN 1 TAB PO SCH (09:01)
[2019-04-25] MEDS: LABETALOL HCL 200 MG TAB PO SCH ×2 (09:01→17:13)
[2019-04-25] MEDS: ONDANSETRON 2 MG OD TAB PO PRN ×2 (09:02→14:09)
[2019-04-25] MEDS: cloNIDine HCL 0.1 MG TAB PO SCH ×4 (09:03→21:44)
[2019-04-25] MEDS: DOCUSATE SODIUM 100 MG CAP PO SCH ×2 (09:03→20:01)
--- NOTE | 2019-04-25 09:26 | Obstetrical Progress Note ---
Date of Service April 25, 2019 Physical Exam Constitutional: WD/WN, vitals as above comfortable will continue medical management per hospitalist Results & Data Vital Signs (Past 12 Hours) Vital Signs Temp Pulse Pulse Resp BP Pulse Ox 04/25/19 05:00 36.9 C 66 20 144/94 H 100 04/25/19 01:00 36.9 C 64 20 144/90 H 100 04/24/19 22:00 36.8 C 72 138/93
[2019-04-25] MEDS: FERROUS SULFATE 325 MG TAB PO SCH ×2 (13:47→21:34)
[2019-04-25] MEDS ORDERED: POTASSIUM CHLORIDE 20 MEQ in SODIUM CHLORIDE 0.9% 1000ML 1,000 ML IV SCH (16:30)
[2019-04-25] MEDS: NSS + 20MEQ KCL 20 MEQ/1,000 ML BAG IV SCH (16:33)
--- NOTE | 2019-04-25 16:42 | Hospitalist Progress Note ---
Date of Service April 25, 2019 Assessment & Plan (1) Recreational drug use: (1) Recreational drug use: hX Of polysubstance abuse ( ETOH , Marijuana , cocaine , THC , iv drug use Heroine ) (+) RLQ pain today, with nausea/vomiting could be secondary to opioid withdrawal, but will check CT abd/pelvis to r/o appendicitis IV NSS + K, clear liquids started monitor PRP Stool cultures and stool for C. difficile ordered continue Clonidine 0.1 mg q4h today monitor closely case management on board to transition patient directly to inpatient Rehab TRANSAMINITIS : elevated AST/ALT likely from Alcoholism, Drug Use liver USG : no evidence of cholecystitis or gall bladder disease Hepatitis panel negative LFTs improving continue to monitor closely as outpatient Subjective ff up for narcotic withdrawal seen resting in bed, comfortable, not in distress has been having nausea/vomiting also reports abdominal discomfort, mostly RLQ denies anxiety, tremors no chest pain, palpitations, dizziness no other symptoms Review of Systems Review of Systems: All systems reviewed & are unremarkable except as noted in HPI & below Physical Exam Physical Exam: General- oriented x 3, not in distress, speaks in sentences with no effort or accessory muscle use Eyes- anicteric Neck- no JVD Lungs- clear breath sounds bilaterally Heart- normal rate, regular rhythm; no murmurs Abdomen- normal bowel sounds, nondistended, soft mild tenderness on the R and L lower quadrants Extremities- no pretibial edema, no calf tenderness Neuro- alert, oriented x 3; no gross focal neurologic deficits Skin- warm & dry Results & Data Vital Signs (Past 12 Hours) Vital Signs Temp Pulse Resp BP Pulse Ox 04/25/19 15:50 36.6 C 73 16 144/103 H 100 04/25/19 08:55 37.1 C 67 16 157/99 H 100 04/25/19 05:00 36.9 C 66 20 144/94 H 100
[2019-04-25] MEDS ORDERED: IOVERSOL 100ml IV PRN (17:33)
--- NOTE | 2019-04-25 17:57 | CT Scan Report ---
ABDOMEN AND PELVIS CT WITH IV CONTRAST CT DOSE: 246.20 mGy.cm HISTORY: Acute lower abdominal pain, greatest within the left lower quadrant. Reported vaginal delive ry 04/19/2019. right > Left lowr quadrant pain ;r/o appendicitis TECHNIQUE: Multiaxial CT images of the abdomen and pelvis were performed following the IV administrat ion of 93 cc of Optiray 320, A dose lowering technique was utilized adhering to the principles of AL SILVINO. COMPARISON STUDY: CT abdomen pelvis 06/08/2017 FINDINGS: Lung bases are clear. No pneumatosis or pneumoperitoneum. The imaged inferior cardiac chambers appear unremarkable. The spleen and adrenal glands are unremarkable. Mildly contracted gallbladder. Coarse calcifications throughout the pancreas compatible with chronic pancreatitis. Mild periportal edema, l ikely related to overhydration. The hepatic and portal veins appear patent. Mild mixing artifact from the superior mesenteric vein. Kidneys are unremarkable. Moderate bladder distention with mild wall t hickening. Enlarged heterogeneous appearance of the uterus with prominent uterine vessels and endomet rial fluid. Trace free pelvic fluid is also noted. The aorta and IVC are unremarkable. No adenopathy. There is no bowel obstruction. There is mild wall thickening throughout the majority of the colon ext ending from the mid ascending portion through the sigmoid. Appendix is not diagnostically visualized. No secondary signs to suggest acute appendicitis. Mild generalized body wall edema. Bones appear int act. IMPRESSION: 1. Mild circumferential wall thickening of the colon extending from the mid ascending portion through the sigmoid may be secondary to partial distention versus a nonspecific colitis. Correlate clinicall y. 2. No bowel obstruction. 3. Enlarged postgravid appearance of the uterus with fluid/debris noted within the endometrial canal. 4. Nonvisualization of the appendix. 5. Mild urinary bladder wall thickening. Correlate with urinalysis. 6. Evidence of chronic pancreatitis. Electronically signed by: Andrés Tran M.D. 04/25/2019 5:56 PM
[2019-04-25] MEDS ORDERED: AMLODIPINE BESYLATE 5 MG TAB PO ONE (18:53)
[2019-04-26] MEDS: NSS + 20MEQ KCL 20 MEQ/1,000 ML BAG IV SCH (02:34)
[2019-04-26 06:55] LABS: BUN Creatinine Ratio 21.2 (10-20); Blood Urea Nitrogen 9 mg/dl (7-18); Calcium 9.1 mg/dl (8.5-10.1); Carbon Dioxide 24 mmol/L (21-32); Chloride 106 mmol/L (98-107); Creatinine Clr Calc Pharmacy 171.2 ml/min; Est GFR (African American) > 150.0; Est GFR (Non-African American) 142.6; Glucose 82 mg/dl (70-99); Magnesium 1.6 mg/dl (1.8-2.4); Potassium 4.1 mmol/L (3.5-5.1); Sodium 137 mmol/L (136-145)
[2019-04-26 07:34] LABS: Albumin Level 1.6 gm/dl (3.4-5.0); Bilirubin Direct 1.8 mg/dl (0-0.2); Total Protein 6.3 gm/dl (6.4-8.2)
[2019-04-26] MEDS: ONDANSETRON 2 MG OD TAB PO PRN ×2 (07:47→11:50)
[2019-04-26] MEDS: PRENATAL VITAMIN 1 TAB PO SCH (07:48)
[2019-04-26] MEDS: LABETALOL HCL 200 MG TAB PO SCH ×2 (07:49→20:40)
[2019-04-26] MEDS: cloNIDine HCL 0.1 MG TAB PO SCH ×4 (07:49→20:40)
[2019-04-26] MEDS: FERROUS SULFATE 325 MG TAB PO SCH ×2 (07:49→20:40)
[2019-04-26] MEDS: DOCUSATE SODIUM 100 MG CAP PO SCH ×2 (10:04→20:40)
[2019-04-26] MEDS: NICOTINE 21 MG/24 HR TDSY TD SCH (14:32)
[2019-04-26] MEDS ORDERED: AMLODIPINE BESYLATE 5 MG TAB PO ONE (15:41)
[2019-04-26] MEDS: PROMETHAZINE HCL 25 MG TAB PO PRN (16:23)
[2019-04-26] MEDS ORDERED: bisacodyL 10 MG SUPP PR PRN (16:32)
[2019-04-26] MEDS ORDERED: DOCUSATE SODIUM/SENNA 50/8.6MG TAB PO SCH (16:45)
--- NOTE | 2019-04-26 17:07 | Hospitalist Progress Note ---
Date of Service April 26, 2019 Subjective Patient is seen and examined. She feels okay, no complaints other than nausea Ambulating without dizziness Voiding without difficulty Tolerating regular diet Bleeding is minimal No fever/ chills/ CP/ SOB/ Leg pain Bottle feeding without problems Vital Signs Temp Pulse Pulse Resp BP BP Pulse Ox 04/23/19 08:15 36.7 C 65 20 148/104 H 100 04/23/19 03:40 36.8 C 63 18 129/82 100 04/22/19 23:40 36.5 C 78 16 136/92 100 04/22/19 21:10 149/96 H 04/22/19 20:14 78 150/100 H 04/22/19 19:10 36.7 C 75 16 153/103 H 157/101 H 100 04/22/19 15:30 36.9 C 75 20 147/94 H 99 04/22/19 13:46 94 H 18 116/84 99 04/22/19 11:45 129/84 04/23/19 04/21/19 04/20/19 Range/Units 06:12 08:00 21:40 Total Bilirubin 1.6 H (0.2-1) mg/dl Direct Bilirubin 1.3 H (0-0.2) mg/dl AST 46 H (15-37) U/L ALT 31 (12-78) U/L Alkaline Phosphatase 405 H (45-117) U/L Total Protein 5.5 L (6.4-8.2) gm/dl Albumin 1.4 L (3.4-5.0) gm/dl U Codeine Confrm GC/MS Ur Morphine (GC/MS) Ur Hydrocodone (GC/MS) Ur Norhydrocodone Ur Noroxycodone Urine Oxycodone (GC/MS) U Oxymorphone GC/MS U Methadone Metabolites Ur Methadone Confirm Ur Hydromorphone (GC/MS) U Amphetamines Confirm U Methamphetamin Confrm U MDMA (Ecstasy), Quant U Cocaine Confirm GC/MS U Marijuana THC Carboxy 62 H Drug Screen Comment SEE NOTE C.trachomatis RNA NOT DETECTED (NOT DETECTED) N.gonorrhoeae RNA NOT DETECTED (NOT DETECTED) 04/19/19 04/19/19 Range/Units 10:30 10:30 Total Bilirubin (0.2-1) mg/dl Direct Bilirubin (0-0.2) mg/dl AST (15-37) U/L ALT (12-78) U/L Alkaline Phosphatase (45-117) U/L Total Protein (6.4-8.2) gm/dl Albumin (3.4-5.0) gm/dl U Codeine Confrm GC/MS NEGATIVE Ur Morphine (GC/MS) 408 Ur Hydrocodone (GC/MS) NEGATIVE Ur Norhydrocodone NEGATIVE Ur Noroxycodone NEGATIVE Urine Oxycodone (GC/MS) NEGATIVE U Oxymorphone GC/MS NEGATIVE U Methadone Metabolites 74438 Ur Methadone Confirm 1350 Ur Hydromorphone (GC/MS) NEGATIVE U Amphetamines Confirm 1090 U Methamphetamin Confrm 2960 U MDMA (Ecstasy), Quant REPORT U Cocaine Confirm GC/MS 798 U Marijuana THC Carboxy 272 Drug Screen Comment C.trachomatis RNA (NOT DETECTED) N.gonorrhoeae RNA (NOT DETECTED) PE: General: Alert, orientedx3, NAD Abd: soft, NT, fundus firm, below Umbilicus Perineum intact, Lochia rubra minimal Ext; NT, no edema AP: 24 yo s/p , ppd# 4 Admitted as h/o substance abuse, multiple On Clonidine protocol HT: on Labetalol Medicine /psyhc consults Awaiting placement and medicine input for d/c Continue to monitor All questions were answered Results & Data Vital Signs (Past 12 Hours) Vital Signs Temp Pulse Pulse Resp BP Pulse Ox 04/26/19 15:28 36.8 C 68 20 158/104 H 100 04/26/19 11:48 106 H 119/87 04/26/19 07:45 36.9 C 73 16 130/91 100
--- NOTE | 2019-04-26 17:13 | Hospitalist Progress Note ---
Date of Service April 26, 2019 Assessment & Plan (1) Recreational drug use: (1) Recreational drug use: hX Of polysubstance abuse ( ETOH , Marijuana , cocaine , THC , iv drug use Heroine ) CT abdomen/pelvis: 1. Mild circumferential wall thickening of the colon extending from the mid ascending portion through the sigmoid may be secondary to partial distention versus a nonspecific colitis. Correlate clinically. 2. No bowel obstruction. 3. Enlarged postgravid appearance of the uterus with fluid/debris noted within the endometrial canal. 4. Nonvisualization of the appendix. 5. Mild urinary bladder wall thickening. Correlate with urinalysis. 6. Evidence of chronic pancreatitis. no abdominal pain, vomiting today withdrawal symtoms improving continue Clonidine 0.1 mg q4h, then taper while at Rehab HYPERTENSION not at goal today Amlodipine 2.5mg po one dose given continue Labetalol 200mg BID monitor closely TRANSAMINITIS : elevated AST/ALT, Direct Bili, Alk phos- appears to be chronic likely from Alcoholism, Drug Use liver USG : no evidence of cholecystitis or gall bladder disease Hepatitis panel negative continue to monitor closely as outpatient, if persistent, will need referral to GI Thank you for this consultation. We will follow the patient with you during their hospital stay. You can reach a member of the [facility] Hospitalist Team 10/12 via pager @ [phone]. Subjective ff up for opioid withdrawal seen with BE Kamara at bedside throughout whole encounter states she feels better today, no vomiting, just mild nausea no abdominal pain no tremors, sweats no other symptoms Review of Systems Review of Systems: All systems reviewed & are unremarkable except as noted in HPI & below Physical Exam Physical Exam: General- oriented x 3, not in distress, speaks in sentences with no effort or accessory muscle use Eyes- anicteric Neck- no JVD Lungs- clear BS, no rales/wheezes bilaterally Heart- normal rate, regular rhythm; no murmurs Abdomen- normal bowel sounds, nondistended, soft, nontender Extremities- no pretibial edema, no calf tenderness Neuro- alert, oriented x 3; no gross focal neurologic deficits Skin- warm & dry Results & Data Vital Signs (Past 12 Hours) Vital Signs Temp Pulse Pulse Resp BP Pulse Ox 04/26/19 15:28 36.8 C 68 20 158/104 H 100 04/26/19 11:48 106 H 119/87 04/26/19 07:45 36.9 C 73 16 130/91 100 Laboratory Results Laboratory Results - last 24 hr 04/26/19 04/26/19 05:51 05:51 Sodium 137 Potassium 4.1 Chloride 106 Carbon Dioxide 24 Anion Gap 7.0 BUN 9 Creatinine 0.41 L Est Cr Clr Drug Dosing 171.2 Est GFR ( Amer) > 150.0 Est GFR (Non-Af Amer) 142.6 BUN/Creatinine Ratio 21.2 H Glucose 82 Calcium 9.1 Magnesium 1.6 L Total Bilirubin 2.0 H Direct Bilirubin 1.8 H AST 75 H ALT 44 Alkaline Phosphatase 505 H Total Protein 6.3 L Albumin 1.6 L Lipase 71 L
[2019-04-27] MEDS: cloNIDine HCL 0.1 MG TAB PO PRN (05:44)
[2019-04-27 06:36] LABS: BUN Creatinine Ratio 28.2 (10-20); Blood Urea Nitrogen 12 mg/dl (7-18); Calcium 9.1 mg/dl (8.5-10.1); Carbon Dioxide 23 mmol/L (21-32); Chloride 107 mmol/L (98-107); Creatinine Clr Calc Pharmacy 167.1 ml/min; Est GFR (African American) > 150.0; Est GFR (Non-African American) 141.5; Glucose 87 mg/dl (70-99); Potassium 3.8 mmol/L (3.5-5.1); Sodium 138 mmol/L (136-145)
[2019-04-27] MEDS: LABETALOL HCL 200 MG TAB PO SCH (08:32)
[2019-04-27] MEDS: cloNIDine HCL 0.1 MG TAB PO SCH ×2 (08:33→12:07)
[2019-04-27] MEDS: NICOTINE 21 MG/24 HR TDSY TD SCH (08:33)
[2019-04-27] MEDS: PRENATAL VITAMIN 1 TAB PO SCH (08:34)
[2019-04-27] MEDS: DOCUSATE SODIUM 100 MG CAP PO SCH (08:34)
[2019-04-27] MEDS: FERROUS SULFATE 325 MG TAB PO SCH (08:34)
--- NOTE | 2019-04-27 09:05 | Obstetrical Progress Note ---
Date of Service April 27, 2019 Subjective Patient is seen and examined. She feels well, no complaints. All dressed and ready to leave Ambulating without dizziness Voiding without difficulty Tolerating regular diet with out N&V Bleeding is minimal No fever/ chills/ CP/ SOB/ N&V/ Leg pain Bottle feeding without problems Discussed contraception with patient in details. Abstinence for 6 weeks, BCP, progestin only pills, Nexplanon, IUD's, Mirena and Paragard She has h/o migraines with aura Discussed progestin only options she decided to have Rx for Micronor Recommended to take every day at the same time and use condoms all the time Vital Signs Temp Pulse Pulse Resp BP Pulse Ox 04/27/19 05:44 81 119/84 04/26/19 23:07 36.7 C 93 H 18 114/83 04/26/19 20:41 66 155/103 H 04/26/19 18:53 70 147/94 H 04/26/19 17:57 69 150/107 H 04/26/19 15:28 36.8 C 68 20 158/104 H 100 04/26/19 11:48 106 H 119/87 04/27/19 Range/Units 05:53 Sodium 138 (136-145) mmol/L Potassium 3.8 (3.5-5.1) mmol/L Chloride 107 (98-107) mmol/L Carbon Dioxide 23 (21-32) mmol/L Anion Gap 9.0 (3-11) BUN 12 (7-18) mg/dl Creatinine 0.42 L (0.6-1.2) mg/dl Est Cr Clr Drug Dosing 167.1 ml/min Est GFR ( Amer) > 150.0 Est GFR (Non-Af Amer) 141.5 BUN/Creatinine Ratio 28.2 H (10-20) Glucose 87 (70-99) mg/dl Calcium 9.1 (8.5-10.1) mg/dl PE: General: Alert, orientedx3, NAD Abd: soft, NT, fundus firm, below Umbilicus Perineum intact, Lochia rubra minimal Ext; NT, no edema AP: 24 yo s/p , ppd# 8 VSS Afebrile doing well h/o drug abuse, alcohol/ tobacco use Being discharged for rehab Micronor/ condoms for contraception Pending hospitalist recommendation for BP med All questions were answered Results & Data Vital Signs (Past 12 Hours) Vital Signs Temp Pulse Resp BP 04/27/19 05:44 81 119/84 04/26/19 23:07 36.7 C 93 H 18 114/83
--- NOTE | 2019-04-29 13:07 | Hospitalist Progress Note ---
Date of Service delayed entry date of service 04/27/19 April 29, 2019 Assessment & Plan (1) Recreational drug use: (1) Recreational drug use: hX Of polysubstance abuse ( ETOH , Marijuana , cocaine , THC , iv drug use Heroine ) CT abdomen/pelvis: 1. Mild circumferential wall thickening of the colon extending from the mid ascending portion through the sigmoid may be secondary to partial distention versus a nonspecific colitis. Correlate clinically. 2. No bowel obstruction. 3. Enlarged postgravid appearance of the uterus with fluid/debris noted within the endometrial canal. 4. Nonvisualization of the appendix. 5. Mild urinary bladder wall thickening. Correlate with urinalysis. 6. Evidence of chronic pancreatitis. withdrawal symptoms well controlled no GI symptoms, no tremors/anxiety on exam continue Clonidine 0.1 mg q4h, then continue appropriate taper while at Rehab Center HYPERTENSION continue Labetalol 200mg BID monitor closely TRANSAMINITIS : elevated AST/ALT, Direct Bili, Alk phos- appears to be chronic likely from Alcoholism, Drug Use liver USG : no evidence of cholecystitis or gall bladder disease Hepatitis panel negative continue to monitor closely as outpatient, if persistent, will need referral to GI Thank you for this consultation. Subjective ff up for opioid withdrawal seen with RN at bedside throughout whole encounter seen resting in bed, comfortable states she feels better overall in good spirits, smiling denies abdominal pain discomfort, nausea, diarrhea denies chest pain, dyspnea, palpitations, dizziness no other symptoms states she is ready for discharge Review of Systems Review of Systems: All systems reviewed & are unremarkable except as noted in HPI & below Physical Exam Physical Exam: General- oriented x 3, not in distress, speaks in sentences with no effort or accessory muscle use Eyes- anicteric Neck- no JVD Lungs- clear breath sounds bilaterally, no rales, no wheezing Heart- normal rate, regular rhythm; no murmurs Abdomen- normal bowel sounds, nondistended, soft, nontender Extremities- no pretibial edema, no calf tenderness Neuro- alert, oriented x 3; no gross focal neurologic deficits Skin- warm & dry Results & Data Laboratory Results all noted and reviewed
== END 2019-04-27 12:35 | disposition alcohol treatment (31) | DRG 776 ==
LOC: 4S1 02:16 → 4S2 05:00